=== PATIENT | female | born 1965 | race Caucasian/White ===

== ENCOUNTER 2016-07-23 05:01 | Emergency (ER) | payer BC ==
[2016-07-23] MEDS ORDERED: Aspirin Low Dose CHEW TAB* 81 MG PO ONE (05:12)
[2016-07-23 05:20] LABS: Hematocrit 39 % (35-47); Hemoglobin 13.1 g/dl (12.0-16.0); Mean Corpuscular HGB Conc 34 g/dl (31-36); Mean Corpuscular Hemoglobin 31 pg (27-31); Mean Corpuscular Volume 92 fL (80-97); Mean Platelet Volume 7 um3 (7.4-10.4); Red Blood Count 4.28 10^6/ul (4.0-5.4); Red Cell Distribution Width 13 % (10.5-15); White Blood Count 10.6 10^3/ul (3.5-10.8)
[2016-07-23 05:36] LABS: Albumin 3.7 g/dL (3.2-5.2); BUN/Creatinine Ratio 16.7 (8-20); Calcium 9.1 mg/dL (8.6-10.3); EGFR African American 109.4 (>60); EGFR Non-African American 85.1 (>60); Potassium 3.9 mmol/L (3.5-5.0); Total Bilirubin 0.3 mg/dL (0.2-1.0); Total Protein 6.7 g/dL (6.4-8.9)
[2016-07-23 05:53] VITALS: BP 150/54
--- NOTE | 2016-07-23 05:53 | ED ---
mann Lane Timothy, scribed for Tyrese Maier on 07/23/16 at 0511 . Upper Extremity Pain - HPI Summary HPI Summary: Kezia Ambrose is a 51 yo female presenting to [facility] with ?/10 shooting left arm pain radiating from her shoulder to her finger tips and back since 244. She claims some nausea due to pain. She denies CP or SOB. She self- medicated with ibuprofen with no relief. Her MHx includes asthma, lupus, hysterectomy, and tobacco use. - History of Current Complaint Stated Complaint: ARM PAIN Time Seen by Provider: 07/23/16 05:13 Hx Obtained From: Patient Mechanism Of Injury: Unknown Onset/Duration: Started Hours Ago, Still Present Timing: Constant Severity Initially: Moderate Severity Currently: Moderate Pain Location: Shoulder Character: Sharp - "shooting" Alleviating Factor(s): Nothing Associated Signs & Symptoms: Negative: Chest Pain, SOB - Allergies/Home Medications Allergies/Adverse Reactions: Allergies Allergy/AdvReac Type Severity Reaction Status Date / Time CI Pigment Blue 63 Allergy Severe See Comment Verified 11/07/14 09:19 [From Cymbalta] Duloxetine [From Cymbalta] Allergy Severe See Comment Verified 11/07/14 09:19 Penicillins Allergy Severe Anaphylatic Verified 11/07/14 09:19 Shock Prednisone Allergy Unknown Unknown Verified 11/07/14 09:[address] DYE Allergy Severe Anaphylatic Uncoded 11/07/14 09:19 Shock PMH/Surg Hx/FS Hx/Imm Hx Respiratory History: Reports: Hx Asthma - Family History Known Family History: Positive: Cardiac Disease - Social History Alcohol Use: Occasionally Substance Use Type: Reports: None Smoking Status (MU): Current Every Day Smoker - Additional Comments History Additional Comments: lupus Review of Systems Constitutional: Negative Eyes: Negative ENT: Negative Cardiovascular: Negative Respiratory: Negative Gastrointestinal: Negative Genitourinary: Negative Musculoskeletal: Other - left shoulder pain radiating from her shoulder to finger tips and back Skin: Negative Neurological: Negative Psychological: Normal All Other Systems Reviewed And Are Negative: Yes Physical Exam Triage Information Reviewed: Yes Vital Signs On Initial Exam: Initial Vital Signs Temp 97.1 F 07/23/16 05:14 Pulse 90 07/23/16 05:14 Resp 16 07/23/16 05:14 BP 141/88 07/23/16 05:14 Pulse Ox 95 02/22/17 05:14 Vital Signs Reviewed: Yes Appearance: Positive: Well-Appearing, No Pain Distress Skin: Positive: Warm, Skin Color Reflects Adequate Perfusion, Dry Head/Face: Positive: Normal Head/Face Inspection Eyes: Positive: EOMI, LORRAINE ENT: Positive: Normal ENT inspection, Hearing grossly normal. Negative: Muffled /hoarse voice Neck: Positive: Supple, Nontender Respiratory/Lung Sounds: Positive: Clear to Auscultation, Breath Sounds Present Cardiovascular: Positive: RRR, Pulses are Symmetrical in both Upper and Lower Extremities Abdomen Description: Positive: Nontender, Soft Bowel Sounds: Positive: Present Musculoskeletal: Positive: Strength/ROM Intact, Pain @ - tenderness over left shoulder. Negative: Normal Neurological: Positive: Normal, Sensory/Motor Intact, Alert, Oriented to Person Place, Time Psychiatric: Positive: Normal Diagnostics - Laboratory Result Diagrams: 07/23/16 05:10 07/23/16 05:10 Lab Statement: Any lab studies that have been ordered have been reviewed, and results considered in the medical decision making process. - Radiology CXR Xray Interpretation: No Acute Changes - no acute disease Radiology Interpretation Completed By: ED Physician Shoulder XR Xray Interpretation: No Acute Changes - no acute disease Radiology Interpretation Completed By: ED Physician - EKG 0459 Cardiac Rate: NL - 92 BPM EKG Rhythm: Sinus Rhythm EKG Interpretation: NSR @ 92 BPM. No acute changes. Re-Evaluation - Re-Evaluation First Eval Re-Evaluation Time: 05:48 Change: Unchanged Comment: Pt is informed of imaging study results. She still denies CP and SOB. Course/Dx - Course Assessment/Plan: Kezia Ambrose is a 51 yo female presenting to [facility] with left shoulder pain radiaitng down her finger tips and into her back. After review of her imaging studies and normal EKG, she will be discharged home with left shoulder pain and appropriate instructions. - Diagnoses Provider Diagnoses: Left shoulder pain Discharge - Discharge Plan Condition: Stable Disposition: HOME Patient Education Materials: Shoulder Sprain (ED), Shoulder Pain (ED) Referrals: Imelda Polo MD [Medical Doctor] - 3 Days Additional Instructions: please follow up with orthopedics regarding your visit to the emergency department today. Return to the emergency department with any new or recurring symptoms. The documentation as recorded by the scribemann Timothy accurately reflects the service I personally performed and the decisions made by me, Tyrese Maier.
--- NOTE | 2016-07-23 07:58 | RAD ---
HISTORY: Chest pains, left shoulder pain COMPARISONS: October 17, 2015 VIEWS: 3, Frontal internal rotation, external rotation, and outlet views of the left shoulder FINDINGS: BONE DENSITY: Normal. BONES: There is no displaced fracture. There is a stable bone island. JOINTS: There is no arthropathy. ALIGNMENT: There is no dislocation. SOFT TISSUES: Unremarkable. OTHER FINDINGS: None. IMPRESSION: NO ACUTE OSSEOUS INJURY. IF SYMPTOMS PERSIST, RECOMMEND REPEAT IMAGING.
--- NOTE | 2016-07-23 07:58 | RAD ---
INDICATION: LEFT side chest pain radiating into the shoulder. Tobacco use; asthma. COMPARISON: April 25, 2015 TECHNIQUE: Dual energy PA and routine lateral views of the chest were obtained. REPORT: Normal variant accessory azygos fissure in the medial RIGHT upper lung zone. Clear lungs and pleural spaces. Negative for pneumothorax. The heart, pulmonary vasculature, and mediastinal contours are unremarkable. Unremarkable osseous structures and soft tissue contours. IMPRESSION: No evidence for acute intrathoracic disease.
== END 2016-07-23 05:53 | disposition home or self-care (01) ==
LOC: ED 05:01
DX: M25.512 Pain in left shoulder (principal); F17.210 Nicotine dependence, cigarettes, uncomplicated; R11.0 Nausea; Z88.0 Allergy status to penicillin
CPT/HCPCS: 36415; 71020; 80053; 83880; 84484; 85025; 85610; 85730; 93005; 99282

== ENCOUNTER 2016-10-31 00:57 | Emergency (ER) | payer BC ==
--- NOTE | 2016-10-31 02:13 | ED ---
Lower Extremity - HPI Summary HPI Summary: Patient presents to ED s/p mechanical fall with right knee pain with small abrasion and ecchymosis over tibial tuberosity. She states she dislocated the knee after an injury 20 years ago and is concerned for another dislocation. She notes to a 10/10 pain with movement, and a 3/10 pain at rest. Denies other symptoms. Denies pain in ankle or hip. The pain began immediately, did not radiate and is achy and sharp. Patient is a smoker. She denies hitting head or LOC. - History of Current Complaint Chief Complaint: EDExtremityLower Stated Complaint: FALL/RIGHT KNEE PAIN Time Seen by Provider: 10/31/16 01:14 Hx Obtained From: Patient Mechanism Of Injury: Direct Blow Onset of Pain: Immediate Onset/Duration: Minutes Severity Initially: Moderate Severity Currently: Moderate Pain Intensity: 5 Pain Scale Used: 0-10 Numeric Timing: Constant Location: Is Discrete @ - right knee pain Character Of Pain: Aching, Throbbing Associated Signs And Symptoms: Positive: Redness, Bruising Aggravating Factor(s): Standing, Ambulation, Movement, Weight Bearing Alleviating Factor(s): Rest Able to Bear Weight: No - Risk Factors Gout Risk Factors: Age Over 40 DVT Risk Factors: Negative Septic Arthritis Risk Factor: Negative - Allergies/Home Medications Allergies/Adverse Reactions: Allergies Allergy/AdvReac Type Severity Reaction Status Date / Time CI Pigment Blue 63 Allergy Severe See Comment Verified 10/31/16 01:04 [From Cymbalta] Duloxetine [From Cymbalta] Allergy Severe See Comment Verified 10/31/16 01:04 Penicillins Allergy Severe Anaphylatic Verified 10/31/16 01:04 Shock Prednisone Allergy Unknown Unknown Verified 10/31/16 01:04 Reaction Details Hydroxychloroquine Allergy Blisters Verified 10/31/16 01:04 [From Plaquenil] CT DYE Allergy Severe Anaphylatic Uncoded 10/31/16 01:04 Shock PMH/Surg Hx/FS Hx/Imm Hx Previously Healthy: Yes Respiratory History: Reports: Hx Asthma - Immunization History Hx Pertussis Vaccination: No Immunizations Up to Date: Unable to Obtain/Confirm Infectious Disease History: No Infectious Disease History: Denies: Traveled Outside the [place] in Last 30 Days - Family History Known Family History: Positive: Cardiac Disease - Social History Occupation: Employed Full-time Lives: With Family Alcohol Use: Occasionally Hx Substance Use: No Substance Use Type: Reports: None Hx Tobacco Use: Yes Smoking Status (MU): Current Every Day Smoker Review of Systems Constitutional: Negative Eyes: Negative Cardiovascular: Negative Respiratory: Negative Positive: no symptoms reported, see HPI Positive: Arthralgia - right knee pain Skin: Negative Neurological: Negative All Other Systems Reviewed And Are Negative: Yes Physical Exam Triage Information Reviewed: Yes Vital Signs On Initial Exam: Initial Vitals Temp Pulse Resp BP Pulse Ox 97.4 F 103 18 147/70 98 10/31/16 01:02 10/31/16 01:02 10/31/16 01:02 10/31/16 01:02 10/31/16 01:02 Vital Signs Reviewed: Yes Appearance: Positive: Well-Appearing, Well-Nourished Skin: Positive: Warm, Skin Color Reflects Adequate Perfusion Head/Face: Positive: Normal Head/Face Inspection Eyes: Positive: Normal, LORRAINE, Conjunctiva Clear Neck: Positive: Nontender Respiratory/Lung Sounds: Positive: Clear to Auscultation, Breath Sounds Present Cardiovascular: Positive: Normal, RRR Abdomen Description: Positive: Soft Musculoskeletal: Positive: Pain @ - tibial tuberosity, unable to perform lachmans and anterior drawer d/t pain Neurological: Positive: Alert, Oriented to Person Place, Time, Speech Normal Psychiatric: Positive: Normal AVPU Assessment: Alert Diagnostics - Vital Signs Vital Signs Temp Pulse Resp BP Pulse Ox 10/31/16 01:02 97.4 F 103 18 147/70 98 - Laboratory Lab Statement: Any lab studies that have been ordered have been reviewed, and results considered in the medical decision making process. Lower Extremity Course/Dx - Course Course Of Treatment: Patient presents s/p fall with abrasion and ecchymosis to the tibial tuberosity of the right knee. Xrays read by Dr. Maier as negative. Domingo wrapped knee and crutches given. Follow up with Dr. King if symptoms persist. - Diagnoses Differential Diagnosis/HQI/PQRI: Positive: Contusion, Fracture (Closed), Fracture (Open), Sprain, Strain Provider Diagnoses: Contusion of right knee Discharge - Discharge Plan Condition: Stable Disposition: HOME Patient Education Materials: Knee Pain (ED) Referrals: Ross King MD [Medical Doctor] - Jono COLLINS,Gucci Florez [Primary Care Provider] - Additional Instructions: Follow up with Dr. King If symptoms become worse, come back to ED. Crutches for ambulation given. Ibuprofen 600mg three times daily with meals for pain. Follow up with orthopedic physician in 5-7 days. If numbness, tingling, decreased sensation, increased pain, temperature changes or pallor noted in toes, come back to ER immediately. Protect the area. For your comfort level, do not bear weight, pull or push until you can injury is somewhat healed. This may involve the need for immobilization or crutches for a period of time. Rest the involved area, but not too long. You may need to be off your injury for some time to allow for healing, however excessive immobilization of joints can lead to stiffness and delay healing time. Early mobilization is encouraged if it is pain-free. Ice. Not directly on the skin. Cover with a towel. Apply ice no more than 30 minutes at a time Compression: You may use and keep an domingo wrap bandage over the injury to decrease swelling. Again, this should be limited and be taken off periodically to encourage early range of motion and mobilization. Elevate: Try to elevate the injured area above the heart whenever possible.
[2016-10-31 02:33] VITALS: BP 125/81
--- NOTE | 2016-10-31 07:56 | RAD ---
INDICATION: Right knee injury. TECHNIQUE: 4 views of the right knee were obtained. FINDINGS: The bones are in normal alignment. No joint effusion or fracture is seen. Joint spaces appear maintained. IMPRESSION: NO EVIDENCE FOR FRACTURE.
== END 2016-10-31 02:32 | disposition home or self-care (01) ==
LOC: ED 00:57
DX: S80.01XA Contusion of right knee, initial encounter (principal); M25.561 Pain in right knee; F17.210 Nicotine dependence, cigarettes, uncomplicated; W19.XXXA Unspecified fall, initial encounter; Y93.9 Activity, unspecified; Y92.9 Unspecified place or not applicable
CPT/HCPCS: 99282

== ENCOUNTER 2017-07-15 00:32 | Emergency (ER) | payer BC ==
--- NOTE | 2017-07-15 02:06 | ED ---
Yany Lane Thomas, scribed for Dipika Tate MD on 07/15/17 at 0202 . HPI Chest Pain - HPI Summary HPI Summary: The patient is a 52 year old female presenting with chest pressure that has been constant for the last month. Past medical history includes mitral valve disease, for which she sees Dr. Evans. She additionally complains of left arm achiness. She denies SOB. She was given ASA by EMS. - History of Current Complaint Chief Complaint: EDChestPainROMI Time Seen by Provider: 07/15/17 01:01 Hx Obtained From: Patient Onset/Duration: Started Weeks Ago - onset one month ago, Still Present Current Severity: Moderate Pain Intensity: 5 Pain Scale Used: 0-10 Numeric Character: Pressure/Squeezing Aggravating Factor(s): Nothing Alleviating Factor(s): Nothing Associated Signs and Symptoms: Positive: Chest Pain - Allergy/Home Medications Allergies/Adverse Reactions: Allergies Allergy/AdvReac Type Severity Reaction Status Date / Time MS CI Pigment Blue 63 Allergy Severe See Comment Verified 07/15/17 00:43 [From Cymbalta] MS Duloxetine [From Cymbalta] Allergy Severe See Comment Verified 07/15/17 00:43 MS Penicillins [Penicillins] Allergy Severe Anaphylatic Verified 07/15/17 00:43 Shock MS Prednisone [Prednisone] Allergy Unknown Unknown Verified 07/15/17 00:43 Reaction Details MS Hydroxychloroquine Allergy Blisters Verified 07/15/17 00:43 [From Plaquenil] CT DYE Allergy Severe Anaphylatic Uncoded 07/15/17 00:43 Shock PMH/Surg Hx/FS Hx/Imm Hx Respiratory History: Reports: Hx Asthma Musculoskeletal History: Denies: Hx Osteoporosis Infectious Disease History: No Infectious Disease History: Denies: Traveled Outside the [place] in Last 30 Days - Family History Known Family History: Positive: Cardiac Disease - Social History Alcohol Use: Occasionally Hx Substance Use: No Substance Use Type: Reports: None Hx Tobacco Use: Yes Smoking Status (MU): Current Every Day Smoker Review of Systems Negative: Fever Positive: Chest Pain All Other Systems Reviewed And Are Negative: Yes Physical Exam - Summary Physical Exam Summary: VITAL SIGNS: Reviewed. GENERAL: Patient is a well-developed and nourished FEMALE who is lying comfortable in the stretcher. Patient is not in any acute respiratory distress. HEAD AND FACE: No signs of trauma. No ecchymosis, hematomas or skull depressions. No sinus tenderness. EYES: PERRLA, EOMI x 2, No injected conjunctiva, no nystagmus. EARS: Hearing grossly intact. Ear canals and tympanic membranes are within normal limits. MOUTH: Oropharynx within normal limits. NECK: Supple, trachea is midline, no adenopathy, no JVD, no carotid bruit, no c- spine tenderness, neck with full ROM. CHEST: Symmetric, no tenderness at palpation LUNGS: Clear to auscultation bilaterally. No wheezing or crackles. CVS: Regular rate and rhythm, S1 and S2 present, no murmurs or gallops appreciated. ABDOMEN: Soft, non-tender. No signs of distention. No rebound no guarding, and no masses palpated. Bowel sounds are normal. EXTREMITIES: FROM in all major joints, no edema, no cyanosis or clubbing. NEURO: Alert and oriented x 3. No acute neurological deficits. Speech is normal and follows commands. SKIN: Dry and warm Triage Information Reviewed: Yes Vital Signs On Initial Exam: Initial Vitals Temp Pulse Resp BP Pulse Ox 98.3 F 82 16 156/63 98 07/15/17 00:41 07/15/17 00:41 07/15/17 00:41 07/15/17 00:41 07/15/17 00:41 Vital Signs Reviewed: Yes Diagnostics - Vital Signs Vital Signs Temp Pulse Resp BP Pulse Ox 07/15/17 01:00 74 11 141/78 96 07/15/17 00:43 79 97 07/15/17 00:41 98.3 F 82 16 156/63 98 - Laboratory Lab Statement: Any lab studies that have been ordered have been reviewed, and results considered in the medical decision making process. - EKG 00:33 Cardiac Rate: NL EKG Rhythm: Sinus Rhythm - at 78 BPM EKG Interpretation: Normal axis, normal intervals, no ischemic change. Chest Pain Course/Dx - Course Assessment/Plan: The patient is a 52 year old female presenting with chest pressure that has been constant for the last month. Past medical history includes mitral valve disease, for which she sees Dr. Evans. EKG shows normal sinus rhythm with normal intervals, normal axis, and no acute ischemic change. The patient left the room and eloped before we were able to get bloodwork. - Diagnoses Provider Diagnoses: Chest pain Discharge - Discharge Plan Condition: Fair Disposition: OTHER Discharge Disposition Comment: Patient eloped Referrals: Jono COLLINS,Gucci Florez [Primary Care Provider] - The documentation as recorded by the Yany lima Thomas accurately reflects the service I personally performed and the decisions made by me, Dipika Tate MD.
[2017-07-15 02:36] VITALS: BP 146/72
== END 2017-07-15 01:30 ==
LOC: ED 00:32
DX: R07.9 Chest pain, unspecified (principal); F17.200 Nicotine dependence, unspecified, uncomplicated; J45.909 Unspecified asthma, uncomplicated
CPT/HCPCS: 93005; 99282

== ENCOUNTER 2017-07-20 23:01 | Observation (INO) | payer BC ==
[2017-07-20] MEDS ORDERED: Metoprolol Tartrate IV* 1 MG/ML 5 ML VIAL ONE (23:14)
[2017-07-20] MEDS ORDERED: Metoprolol Tartrate IV* 1 MG/ML 5 ML VIAL IV ONE ×2 (23:19→23:43)
[2017-07-20] MEDS ORDERED: NS 0.9% 1000 ML*IV.FLUID IV ONE (23:19)
[2017-07-20 23:32] LABS: ABS Basophils 0.1 10^3/ul (0-0.2); ABS Eosinophils 0.1 10^3/ul (0-0.6); ABS Lymphocytes 2.3 10^3/ul (1.0-4.8); ABS Monocytes 0.7 10^3/ul (0-0.8); ABS Neutrophils 6.3 10^3/ul (1.5-7.7); ABS Nucleated RBC 0 10^3/ul; Eosinophil % 1.3 % (0-6); Hematocrit 38 % (35-47); Hemoglobin 12.7 g/dl (12.0-16.0); Lymphocyte % 24.5 % (25-47); Mean Corpuscular HGB Conc 33 g/dl (31-36); Mean Corpuscular Hemoglobin 31 pg (27-31); Mean Corpuscular Volume 93 fL (80-97); Mean Platelet Volume 7 um3 (7.4-10.4); Nucleated Red Blood Cells % 0.1; Platelet Count 338 10^3/ul (150-450); Red Cell Distribution Width 14 % (10.5-15); White Blood Count 9.6 10^3/ul (3.5-10.8)
--- NOTE | 2017-07-20 23:38 | ED ---
HPI Chest Pain - HPI Summary HPI Summary: 52yo F with hx of HTN, smoking and "irregular heartbeat" presents by EMS with chest pain since 8:30pm tonight. Pain was intermittent until it became constant and severe at around 9:30pm. Pain is a squeezing pressure across whole chest. Associated with some nausea and mild SOB. EMS provided full aspirin and nitro with some improvement. She reports seeing cardiology Dr Evans every 6mo for heart related issues. State she will not have a stress test. Had an echo, unsure of results. +MVP, possible afib in past. Not on blood thinner. Pain is much better now after lopressor and fluids on arrival. - History of Current Complaint Chief Complaint: EDChestPainROMI Time Seen by Provider: 07/20/17 23:31 Hx Obtained From: Patient, EMS Pain Intensity: 7 - Allergy/Home Medications Allergies/Adverse Reactions: Allergies Allergy/AdvReac Type Severity Reaction Status Date / Time MS CI Pigment Blue 63 Allergy Severe See Comment Verified 07/15/17 00:43 [From Cymbalta] MS Duloxetine [From Cymbalta] Allergy Severe See Comment Verified 07/20/17 23:06 MS Penicillins [Penicillins] Allergy Severe Anaphylatic Verified 07/20/17 23:06 Shock MS Prednisone [Prednisone] Allergy Unknown Unknown Verified 07/15/17 00:43 Reaction Details MS Hydroxychloroquine Allergy Blisters Verified 07/15/17 00:43 [From Plaquenil] CT DYE Allergy Severe Anaphylatic Uncoded 07/20/17 23:06 Shock PMH/Surg Hx/FS Hx/Imm Hx Previously Healthy: No Endocrine/Hematology History: Reports: Autoimmune Disease Denies: Hx Anticoagulant Therapy Cardiovascular History: Reports: Hx Atrial Fibrillation, Hx Hypercholesterolemia , Hx Hypertension Denies: Hx Deep Vein Thrombosis, Hx Myocardial Infarction Respiratory History: Reports: Hx Asthma Musculoskeletal History: Denies: Hx Osteoporosis Infectious Disease History: No Infectious Disease History: Denies: Traveled Outside the [place] in Last 30 Days - Family History Known Family History: Positive: Cardiac Disease, Other - mother with MS age 62 - Social History Alcohol Use: Occasionally Hx Substance Use: No Substance Use Type: Reports: None Hx Tobacco Use: Yes Smoking Status (MU): Current Every Day Smoker Review of Systems Negative: Fever ENT: Negative Positive: Chest Pain. Negative: Palpitations Positive: Shortness Of Breath. Negative: Cough Positive: Nausea. Negative: Abdominal Pain, Vomiting Musculoskeletal: Negative Skin: Negative Neurological: Negative All Other Systems Reviewed And Are Negative: Yes Physical Exam Triage Information Reviewed: Yes Vital Signs On Initial Exam: Initial Vitals Temp Pulse Resp BP Pulse Ox 36.6 C 98 13 150/87 100 07/20/17 23:05 07/20/17 23:05 07/20/17 23:05 07/20/17 23:05 07/20/17 23:05 Vital Signs Reviewed: Yes Appearance: Positive: Well-Appearing, No Pain Distress Skin: Positive: Warm, Skin Color Reflects Adequate Perfusion, Dry Eyes: Positive: Normal, EOMI ENT: Positive: Normal ENT inspection Neck: Positive: Supple, Nontender Respiratory/Lung Sounds: Positive: Clear to Auscultation, Breath Sounds Present Cardiovascular: Positive: Normal, RRR. Negative: Murmur, Leg Edema Left Abdomen Description: Positive: Nontender, No Organomegaly, Soft Bowel Sounds: Positive: Present Musculoskeletal: Positive: Normal Neurological: Positive: Normal, Sensory/Motor Intact, Alert, Oriented to Person Place, Time Psychiatric: Positive: Normal AVPU Assessment: Alert Diagnostics - Vital Signs Vital Signs Temp Pulse Resp BP Pulse Ox 07/20/17 23:05 36.6 C 98 13 150/87 100 - Laboratory Pertinent Lab Values Are: WNL Except: - ddimer slightly elevated (known to pt) Result Diagrams: 07/20/17 23:12 07/20/17 23:12 Lab Statement: Any lab studies that have been ordered have been reviewed, and results considered in the medical decision making process. - Radiology No standard instances Xray Interpretation: No Acute Changes Radiology Interpretation Completed By: ED Physician - EKG No standard instances Cardiac Rate: Tachycardia - 101 ST Segment: Normal Ectopy: None EKG Interpretation: sinus tach. Nl axis/intervals Re-Evaluation - Re-Evaluation First Eval Change: Improved - after lopressor Chest Pain Course/Dx - Course Course Of Treatment: Pt with improvement with lopressor. HR now ~90. No SOB. Pressure gone. Mod-high risk with HEART Score 5, MANDO of 3. Pt decided she will stay, but wants nicotrol. Cards c/s. Admit for further. She has known baseline elevated of Ddimer due to autoimmune dz. No significant SOB and no leg swelling. - Chest Pain Differential Diagnosis/HQI/PQRI: Acute MS, ACS, Angina, Lower Respiratory Infection, Pulmonary Embolism - Diagnoses Provider Diagnoses: Chest pain, Acute coronary syndrome, Sinus tachycardia by electrocardiogram - Provider Notifications Discussed Care Of Patient With: Leeann graham in ED and admit Time Discussed With Above Provider: 23:55 Instructed by Provider To: Admit As Inpatient Discharge - Discharge Plan Condition: Guarded Disposition: ADMITTED TO [facility] Referrals: Jono COLLINS,Gucci Florez [Primary Care Provider] -
[2017-07-20 23:41] LABS: INR 0.89 (0.77-1.02)
[2017-07-20 23:44] LABS: EGFR Non-African American 76.1 (>60)
[2017-07-21] MEDS ORDERED: Nicotine Inhaler* 10 MG AMP INH ONE (00:07)
[2017-07-21] MEDS ORDERED: Mouth Piece, Nicotine* 1 EACH CARTRIDGE INH PRN ×2 (00:07→00:56)
[2017-07-21] MEDS ORDERED: Morphine INJ* 4 MG/ML 1 ML CARPUJECT IV PRN (00:40)
[2017-07-21] MEDS ORDERED: Acetaminophen TAB* 325 MG PO PRN (00:40)
[2017-07-21] MEDS ORDERED: Nitroglycerin TAB 0.4 MG* 0.4 MG TAB SL PRN (00:40)
[2017-07-21] MEDS ORDERED: NS 0.9% 1000 ML* 1,000 ML IV SCH (00:45)
[2017-07-21] MEDS ORDERED: Nicotine Inhaler* 10 MG AMP INH PRN (00:56)
--- NOTE | 2017-07-21 02:47 | HP ---
CC: Dr. De La Cruz; Dr. Evans * HISTORY AND PHYSICAL: DATE OF ADMISSION: 07/21/17 PRIMARY CARE PROVIDER: Dr. De La Cruz. CALENDER WIND UP HELPER: Dr. Evans. CHIEF COMPLAINT: Chest pain. HISTORY OF PRESENT ILLNESS: Ms. Jayde Ambrose is a 52-year-old female, who has a history of a connective tissue disorder followed by Dr. Doshi, sinus tachycardia, for which she is followed by Dr. Evans, ongoing tobacco abuse, asthma, and hypertension, who presents to the emergency room with complaints of chest pain. The patient has had months of chest pain; however, this past Thursday , 07/15/17, the patient had significantly worsened chest pain and presented to the emergency room. She reportedly was unhappy with her care in the ER. The patient ultimately returned to the emergency room on 07/20/17 for complaints of severe chest pain. The patient states that she got up at approximately 8:30 p.m. to get her up for work. She states she walked across the house and developed severe chest pain. It lasted for approximately 5 minutes and then went away. She then got up to go the bathroom a little bit later and again developed chest pain when getting up to the bathroom. Again, the chest pain went away and then the pain occurred again, this time it persisted. The patient contacted 911 and came to the emergency room. She states the pain did improve after receiving nitroglycerin and metoprolol in the emergency room. The patient just prior to my evaluation, has gotten up to go to the bathroom and again developed very severe chest pain. The patient essentially incapacitated and could barely talk to me. The pain went away within a couple of minutes. The patient states that while the severe pain has gone away, she feels the constant ache. This entire evening, the pain has not been completely resolved. There has been a constant ache at baseline. She has no associated shortness of breath, nausea, or diaphoresis. She has not had associated dizziness. PAST MEDICAL HISTORY: 1. Connective tissue disorder. 2. Sinus tachycardia. 3. Tobacco abuse. 4. Asthma. 5. Hypertension. PAST SURGICAL HISTORY: 1. D and C. 2. Hysterectomy. MEDICATIONS: 1. Sulfasalazine 500 mg p.o. b.i.d. 2. Diltiazem LA 300 mg p.o. daily. 3. Multivitamin 1 tab p.o. daily. 4. Aspirin 81 mg p.o. daily. ALLERGIES: DULOXETINE, PENICILLIN, HYDROXYCHLOROQUINE, PREDNISONE, and CT DYE. FAMILY HISTORY: Mother is living, she is 72. She has history of coronary artery disease. Dad at age 73, had history of carotid artery disease and AAA. SOCIAL HISTORY: The patient smokes one-half to 1 pack of cigarettes per day. She drinks alcohol rarely. 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 She is . She has 4 children. She indicates that her , Deni, is her health care proxy. REVIEW OF SYSTEMS: A complete 11 system review of systems is obtained. Pertinent positives and negatives are as per HPI and in addition the patient does state that her appetite has been off on occasion lately. She does feel palpitations frequently. She is also constipated, but has no hematochezia. The rest of the review of systems is negative. PHYSICAL EXAMINATION GENERAL: The patient is a well-developed, middle-aged female, sitting up in stretcher, in no acute distress. VITAL SIGNS: Blood pressure 150/87, pulse 98, respirations 13, temp 97.8, O2 sat 100% on room air. HEENT: Pupils are equal and round. Extraocular muscles are intact. Oropharynx is clear. Oral mucosa is moist. There is no submandibular, cervical , or supraclavicular adenopathy. Thyroid is not enlarged. No thyroid nodules are noted. PULMONARY: Lungs are clear to auscultation bilaterally. CARDIAC: Normal S1, S2. Regular rate and rhythm. I do not appreciate any murmurs. ABDOMEN: Bowel sounds present. Abdomen is soft, nontender, nondistended. MUSCULOSKELETAL: There is no cyanosis or clubbing of the digits. There is full active range of motion of all 4 extremities. NEURO: Cranial nerves II through XII are grossly intact. Sensation is intact to light touch throughout. Strength is 5/5 and symmetric in both upper and lower extremities bilaterally. PSYCH: The patient is alert. She is oriented x3. Affect appears appropriate. SKIN: Warm and dry. There are no rashes. DIAGNOSTIC STUDIES/LAB DATA: WBC 9.6, hemoglobin 12.7, hematocrit 38, platelets 338. INR 0.89, D-dimer is 309. Sodium 136, potassium 4.0, chloride 102, CO2 27, BUN 16, creatinine 0.79, glucose 124, lactic acid 2.4, calcium 10.0. Bilirubin 0.2, AST 15, ALT 19, alk phos 89. Troponin 0. Albumin 4.1. EKG revealed sinus tachycardia without any acute ST-T wave abnormalities. Additionally, this EKG is unchanged from EKG obtained on 07/15/17. Chest x-ray to my evaluation appears to be clear. ASSESSMENT AND PLAN: Ms. Jayde Ambrose is a 52-year-old female with the history of ongoing tobacco abuse, hypertension, and a connective tissue disorder , who presents to the emergency room with complaints of chest pain. 1. Chest pain. The patient has had chest pain dating back to at least October of 2016. It has been recommended that she undergo stress test; however, the patient is fearful of doing this due to possible complication from a stress test. At this point, she states that she will not undergo stress test. Plan will be to admit the patient and rule out myocardial infarction and obtain Cardiology consultation in the morning to determine how to proceed. Cardiac catheterization could be considered; however, without a positive troponin, this may not be the best option for her. I will go ahead and check a lipid profile with troponin drawn at 5 o'clock in the morning. The patient will continue on her baby aspirin daily. 2. Sinus tachycardia. The patient will continue on her diltiazem 300 mg daily. 3. Tobacco abuse. I will order nicotine patch and nicotine inhaler for the patient. Smoking cessation will be encouraged. 4. Hypertension. The patient's blood pressure is mildly elevated. We will monitor for now. However, if she remains elevated in the morning, we will need to consider adjusting her antihypertensive regimen. 5. DVT prophylaxis. According to the Adult Thrombosis Prophylaxis Risk Factor Assessment Guide, the patient has a total risk factor score of 1, making her low risk. Heparin 5000 units subcutaneous q.12 hours will be utilized as DVT prophylaxis. 6. Code status is full and again the patient indicates that her is her healthcare proxy. TIME SPENT: Sixty-five minutes was spent admitting this patient. [id number]/[facility] #: [id number] AVINASH
--- NOTE | 2017-07-21 07:53 | RAD ---
Indication: Chest pain. Single frontal view of the chest performed at 2321 hours was reviewed. Comparison is made with previous exam dated July 23, 2016. No mediastinal shift is noted. Heart is of normal size and configuration. Lung paulino appear clear. IMPRESSION: NO ACTIVE CARDIOPULMONARY DISEASE IS NOTED.
[2017-07-21] MEDS ORDERED: Nicotine PATCH 21 MG/24 HR* PATCH TRANSDERM SCH (08:00)
[2017-07-21] MEDS ORDERED: Multivitamins/Minerals TAB PO SCH (09:00)
[2017-07-21] MEDS ORDERED: Aspirin EC Low Dose* 81 MG TAB.EC PO SCH (09:00)
[2017-07-21] MEDS ORDERED: Diltiazem CD CAP* 120 MG PO SCH (09:00)
[2017-07-21] MEDS ORDERED: Heparin VIAL(*) 5000 UNITS/ML VIAL (FIVE THOUSAND) SUBCUT SCH (09:00)
[2017-07-21] MEDS ORDERED: Diltiazem CD CAP* 180 MG PO SCH (09:00)
[2017-07-21] MEDS ORDERED: sulfaSALAzine TAB* 500 MG PO SCH (09:00)
--- NOTE | 2017-07-21 10:50 | PN ---
Subjective Date of Service: 07/21/17 Interval History: Patient seen and examined at bedside. Denies fever, chills, shortness of breath , N/V/D. Pt states that over the past few weeks the chest discomfort that she has been intermittently having has been increasing. at home she reports having chest discomfort with exertion that resolves with rest. During this chest discomfort, she has pain that radiated up her anterior neck. She denies nausea or diaphoresis during these episodes. Here, this AM she reports having chest discomfort after returning from the bathroom and sitting down on the bed. She describes this discomfort as "feeling like a tomato being squeezed". Per NSG staff when Pt was having episode of chest discomfort this AM, she declined pain medication or Nitro. She is declining a chemical stress test, as she feels that placing the heart under a lot of stress could kill her. She states that she is unable to do an exercise stress test. Tele: Sinus rhythm, rate 60-90's. Few PVCs noted. Family History: Unchanged from Admission Social History: Unchanged from Admission Past Medical History: Unchanged from Admission Objective Active Medications: Acetaminophen (Tylenol Tab*) 650 mg PO Q4H PRN Reason: PAIN Aspirin (Aspirin Ec Low Dose*) 81 mg PO DAILY [facility] Device (Nicotine Mouth Piece*) 1 each INH .USE WITH NICOTROL PRN Reason: CRAVING Diltiazem HCl (Cardizem Cd Cap*) 180 mg PO DAILY [facility] Diltiazem HCl (Cardizem Cd Cap*) 120 mg PO DAILY [facility] Heparin Sodium (Porcine) (Heparin Vial(*)) 5,000 units SUBCUT Q12HR [facility] Sodium Chloride (Ns 0.9% 1000 Ml*) 1,000 mls @ 100 mls/hr IV PER RATE [facility] Morphine Sulfate (Morphine Inj (Syringe)*) 4 mg IV Q4H PRN Reason: PAIN Multivitamins/Minerals (Theragran/Minerals Tab*) 1 tab PO DAILY [facility] Nicotine (Nicotine Inhaler*) 10 mg INH Q2H PRN Reason: CRAVING Nicotine (Nicotine Patch 21 Mg/24 Hr*) 1 patch TRANSDERM DAILY@0800 [facility] Nitroglycerin (Nitroglycerin Tab 0.4 Mg*) 0.4 mg SL Q5M PRN Reason: ANGINA Pharmacy Profile Note (Nicotine Patch Removal Note*) 1 note FOLLOW UP 2100 [facility] Sulfasalazine (Azulfidine Tab*) 500 mg PO BID MAXIMUS Vital Signs - 8 hr 07/21/17 07:18 Temperature 97.3 F Pulse Rate 92 Respiratory 16 Rate Blood Pressure 140/75 (mmHg) O2 Sat by Pulse 97 Oximetry Oxygen Devices in Use Now: None Appearance: NAD, laying in bed Ears/Nose/Mouth/Throat: Mucous Membranes Moist Respiratory: Symmetrical Chest Expansion and Respiratory Effort, Clear to Auscultation Cardiovascular: NL Sounds; No Murmurs; No JVD, RRR Abdominal: NL Sounds; No Tenderness; No Distention Extremities: No Edema Skin: No Rash or Ulcers Neurological: Alert and Oriented x 3, NL Muscle Strength and Tone Lines/Tubes/Other Access: Clean, Dry and Intact Peripheral IV - site benign Nutrition: Taking PO's Result Diagrams: 07/20/17 23:12 07/20/17 23:12 Assess/Plan/Problems-Billing Assessment: Ms. Jayde Ambrose is a 52 yo female with PMH significant for tobacco abuse, asthma, and HTN who presented to the emergency room with complaints of chest pain. - Patient Problems (1) Chest pain Code(s): R07.9 - CHEST PAIN, UNSPECIFIED SNOMED Code(s): 81586671 Comment: - Continues to have intermittent chest discomfort - Troponins 0.00 x3 - Continue ASA (2) Sinus tachycardia Code(s): R00.0 - TACHYCARDIA, UNSPECIFIED SNOMED Code(s): 85536295 Comment: - Continue diltiazem (3) Tobacco abuse Code(s): Z72.0 - TOBACCO USE SNOMED Code(s): 757742347 Comment: - Encouraged to stop smoking - Continue nicotine replacement (4) HTN (hypertension) Code(s): I10 - ESSENTIAL (PRIMARY) HYPERTENSION SNOMED Code(s): 41310562 Comment: - SBP 140-160's - Continue diltiazem - If continues to remain elevated, will start amlodipine (5) DVT prophylaxis Code(s): FHN6539 - SNOMED Code(s): 855895808 Comment: - SQ heparin (6) Full code status Code(s): Z78.9 - OTHER SPECIFIED HEALTH STATUS SNOMED Code(s): 337093118 Status and Disposition: OBV. Discharge to home when medically stable, possibly later today.
--- NOTE | 2017-07-21 12:53 | ECHO ---
Patient: RANDY MERA [facility] Rec#: [id number] : 1965 Date: 07/21/2017 Age: 52y Height: 172.72 cm / 68.0 in Weight: 76.66 kg / 169.0 lbs Sex: F BSA: 1.9 Room#: 438 Admit Date#: 07/21/2017 Type: Inpatient Referring: Rafal Gaytan MD Reading: Rafal Gaytan MD Research Professor Of Biostatistics: Mary Beth Cadena,RD,RDMS CC: Gucci De La Cruz MD Transthoracic Echocardiogram Indication: CP BP: 140/75 HR: 91 Rhythm: NSR Findings History: Connective tissue disorder, tachycardia, smoker, HTN, CP Technical Comments: The study quality is good. Left Ventricle: The left ventricular chamber size is normal. Mild to moderate concentric left ventricular hypertrophy is observed. There is normal left ventricular systolic function. The estimated ejection fraction is 55-60%. There is an E to A reversal in the mitral valve flow pattern suggestive of diastolic dysfunction. The basal inferior, and mid inferior wall segments are hypokinetic (score 2). Overall wallmotion score index is 2.00 Left Atrium: The left atrial chamber size is normal. Right Ventricle: The right ventricular chamber size and systolic function are within normal limits. The right ventricle wall thickness is mildly increased. Right Atrium: The right atrium appears normal. Aortic Valve: There is no evidence of aortic valve thickening. There is a trace of aortic regurgitation. There is no evidence of aortic stenosis. Mitral Valve: The mitral valve leaflets are mildly thickened. There is a trace of mitral regurgitation. There is no evidence of mitral stenosis. Tricuspid Valve: The tricuspid valve leaflets are normal. There is trace tricuspid regurgitation. Unable to estimate the right ventricular systolic pressure. Pulmonic Valve: The pulmonic valve appears normal. There is trace to mild pulmonic regurgitation. Pericardium: There is no significant pericardial effusion. Aorta: The aortic root appears normal. There is no dilatation of the aortic arch. Pulmonary Artery: The main pulmonary artery appears normal. Venous: The inferior vena cava appears normal in size. There is an approximate 50% respiratory change in the inferior vena cava dimension. Conclusions Mild to moderate concentric left ventricular hypertrophy is observed. There is normal left ventricular systolic function. The estimated ejection fraction is 55-60%. The basal inferior, and mid inferior wall segments are hypokinetic (score 2). The right ventricular chamber size and systolic function are within normal limits. There is a trace of aortic regurgitation. There is a trace of mitral regurgitation. There is trace tricuspid regurgitation. There is no significant pericardial effusion. Compared to study of 12/06/13, the mild wall motion abnormalities are new, Valve function is the same Measurements Name Value Normal Range RVIDd (AP) 2D 2.8 cm (0.9 - 2.6) RVDdMajor (2D) 2.5 cm (2.2 - 4.4) RAd ISD 4CH 4.6 cm (3.4 - 4.9) RA (A4C)W 3.7 cm (2.9 - 4.6) IVSd (2D) 1.3 cm (0.6 - 1) LVPWd (2D) 1.3 cm (0.6 - 1) LVIDd (2D) 4.1 cm (3.6 - 5.4) LVIDs (2D) 3.1 cm - LV FS (2D) 24 % (25 - 45) Aortic Annulus 2 cm (1.4 - 2.6) Ao root diameter (2D) 2.5 cm (2.1 - 3.5) Ascending Ao 2.5 cm (2.1 - 3.4) Aortic arch 2.7 cm (1.8 - 3.4) LA dimension (AP) 2D 3.5 cm (2.3 - 3.8) LAd ISD 4CH 5.5 cm (2.9 - 5.3) LA ISD 4CH W 4.3 cm (2.5 - 4.5) Name Value Normal Range LA ESV SP 4CH (A/L) 54.24 ml - LA ESV SP 2CH (A/L) 56.2 ml - LA ESV BP (A/L) 56.22 ml - LA ESV BP (A/L) index 30 ml/m2 - LA ESV SP 4CH (MOD) 49.79 ml - LA ESV SP 2CH (MOD) 52.57 ml - LV EDV SP 4CH (MOD) 56.41 ml - LV ESV SP 4CH (MOD) 28.29 ml - EF SP 4CH (MOD) 49.85 % - LV EDV SP 2CH (MOD) 44.11 ml - LV ESV SP 2CH (MOD) 16.14 ml - EF SP 2CH (MOD) 63.4 % - LV EDV BP 50.57 ml - LV ESV BP 21.27 ml - BP EF (MOD) 58 % - Name Value Normal Range MV E-wave Vmax 1 m/sec - MV deceleration time 89 msec - MV A-wave Vmax 1.4 m/sec - MV E:A ratio 0.7 ratio - LV lateral e' Vmax 0.08 m/sec - LV E:e' lateral ratio 12.5 ratio - Name Value Normal Range AV Vmax 1.8 m/sec - AV VTI 38 cm - AV peak gradient 13 mmHg - AV mean gradient 6.6 mmHg - LVOT Vmax 1 m/sec - LVOT VTI 22 cm - LVOT peak gradient 4 mmHg - LVOT mean gradient 2 mmHg - LAINE Vmax 1 m/sec - Name Value Normal Range MV Vmax 1.4 m/sec - MV VTI 31 cm - MV peak gradient 8 mmHg - MV mean gradient 3.7 mmHg - MV PHT 43 msec - MVA (PHT) 5.1 cm2 - Name Value Normal Range RAP 8 mmHg - IVC diameter 1.5 cm - Name Value Normal Range PV Vmax 0.9 m/sec - PV peak gradient 3.2 mmHg - Wallmotion BAS Not Seen BA Not Seen BAL Not Seen KALYAN Not Seen BI Hypokinetic BIS Not Seen MAS Not Seen MA Not Seen MAL Not Seen MIL Not Seen MN Hypokinetic MIS Not Seen Not Seen AA Not Seen AL Not Seen AI Not Seen APEX Not Seen
[2017-07-21] MEDS ORDERED: Regadenoson* 0.4 MG/5 ML SYRINGE ONE (14:16)
[2017-07-21] MEDS ORDERED: Aminophylline IV* 25 MG/ML 10 ML VIAL ONE (14:37)
--- NOTE | 2017-07-21 16:45 | RAD ---
Indication: Elevated d-dimer. Duplex Doppler sonography of the deep venous system of both lower extremities was performed. Bilaterally the common femoral veins, proximal greater saphenous veins, proximal deep femoral veins, femoral veins, popliteal veins, posterior tibial veins and peroneal veins appear patent and compressible. IMPRESSION: NO EVIDENCE OF DEEP VENOUS THROMBOSIS OF EITHER LOWER EXTREMITY IS PRESENT.
[2017-07-21 17:31] VITALS: BP 142/65
[2017-07-21] MEDS ORDERED: Nicotine Patch Removal NOTE FOLLOW UP SCH (21:00)
--- NOTE | 2017-07-21 21:34 | CONS ---
CC: Dr. Evans; Dr. De La Cruz * CARDIOLOGY CONSULTATION NOTE: DATE OF CONSULT: 07/21/17 INDICATION FOR CONSULTATION: Chest pain. HISTORY OF PRESENT ILLNESS: The patient is a 52-year-old female with a history of connective tissue disorder, tachycardia, hypertension, tobacco abuse, who came to the emergency room because of chest pain. The patient states that on Thursday night, she went up to wake up her son for his midnight shift and started getting chest pain. The patient states she was up walking around. She had 5/10 chest pain. She described it as a center of her chest. It did not radiate anywhere. She denied any diaphoresis. She denied any shortness of breath. The patient states she sat and rested and the discomfort went away. A little later, she got up to do some similar activity and the chest pain came back. It was not quite as intense at this time, but then she sat down and rested the second time and the pain went away. A third time, the patient got up to do activities and she had a return of her chest pain. It was a little bit more intense than it had been originally and when she sat down, it did not go away and at that time, she called the ambulance and came to the emergency room. In the emergency room, her EKG showed sinus tachycardia but no specific ST-T wave changes. She has ruled out for a myocardial infarction. In speaking with her today, she denies any symptoms today. PAST MEDICAL HISTORY: Connective tissue disorder, sinus tachycardia, tobacco abuse, asthma, hypertension. PAST SURGICAL HISTORY: Hysterectomy. OUTPATIENT MEDICATIONS: 1. Sulfasalazine 500 mg b.i.d. 2. Diltiazem 300 mg a day. 3. Multivitamin a day. 4. Aspirin 81 mg a day. ALLERGIES: Multiple allergies to PENICILLIN, CT DYE, PREDNISONE. FAMILY HISTORY: Her father at age 73 of carotid disease and abdominal aortic aneurysm. SOCIAL HISTORY: The patient is a tobacco user. She smokes one half pack of cigarettes a day. Rare alcohol intake. 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 She is . She has 4 children. PHYSICAL EXAM: Height is 5 feet 8 inches, weight is 169 pounds. Temperature 98.4, heart rate is 76, blood pressure 149/68, respiratory rate is 18, oxygen saturation 100% on room air. Sclerae anicteric. Oropharynx is pink without erythema. Carotid are 2+ without bruits. JVD is normal. Thyroid is normal. Cardiac Exam: S1, S2 without any murmurs, rubs, or gallops. Lungs are clear to auscultation bilaterally. There is no dullness to percussion. Abdomen is soft , nontender, nondistended with normoactive bowel sounds. Extremities showed no edema. She has 2+ pulses throughout. The patient is awake, alert, and oriented. She moves all 4 extremities equally. DIAGNOSTIC STUDIES/LAB DATA: CBC within normal limits. Chemistries within normal limits. Troponins are negative x3. Total cholesterol 221, HDL of 163, LDL of 30. EKG shows normal sinus rhythm. The patient did undergo an echocardiogram, which showed normal LV size and systolic function. There is relative hypokinesis of the base of the inferior wall, which is a nonspecific finding. There are no valvular abnormalities. It is not significantly different from her electrocardiogram in 2014. The patient underwent a chemical nuclear stress. Her stress images only demonstrate normal perfusion. She has normal LV function. IMPRESSION: A 52-year-old woman with connective tissue disorder, tobacco use, hypertension, who came to the hospital because of chest pain. The patient ruled out for a myocardial infarction. She had no ischemic EKG changes. The patient's echocardiogram and stress test are unremarkable. There is no clear evidence of ischemia. She has normal perfusion after her stress test. The patient does have a mildly elevated D-dimer level she says in the past. This has been abnormal over the years. Because of the patient's CT DYE allergy, the patient cannot get a CT angiogram to rule out pulmonary embolism. The patient will get a Doppler ultrasound of her lower extremities to look for deep venous thrombosis. Otherwise, I do not think that other cardiac workup is necessary. The patient will continue her outpatient medication. She should follow up with Dr. Evans. This case was discussed with Emily Nelson NP from the hospitalist service. [id number]/[facility] #: [id number] AVINASH
--- NOTE | 2017-07-22 17:35 | DS ---
CC: Dr. Evans; Dr. De La Cruz * DISCHARGE SUMMARY: DATE OF ADMISSION: 07/21/17 DATE OF DISCHARGE: 07/21/17 ATTENDING PHYSICIAN: Dr. Gen Callahan * (dictated by Tanisha Roberson NP). PRIMARY CARE PROVIDER: Dr. Gucci De La Cruz. SUPERVISOR METAL FABRICATING: Dr. Selam Evans. PRIMARY DIAGNOSIS: Chest pain, suspect noncardiac in nature. SECONDARY DIAGNOSES: 1. Connective tissue disorder. 2. Sinus tachycardia. 3. Tobacco abuse. 4. Asthma. 5. Hypertension. CONSULTATIONS WHILE IN THE HOSPITAL: Dr. Rafal Gaytan with Cardiology. STUDIES WHILE IN THE HOSPITAL: 1. Chest x-ray on 07/20/17. Radiologist's impression: No active cardiopulmonary disease is noted. 2. Transthoracic echocardiogram on 07/21/17. Billing Checker's conclusion: Mild- to- moderate concentric left ventricular hypertrophy was observed. There is normal left ventricular systolic function. The estimated ejection fraction is 55% to 60%. The basal inferior and mid inferior wall segments are hypokinetic ( score 2). The right ventricular chamber size and systolic function are within normal limits. There is a trace of aortic regurgitation, trace of mitral regurgitation, trace tricuspid regurgitation. There is no significant pericardial effusion. Compared to study of 12/06/13, the mild wall motion abnormalities are new, valve function is the same. 3. Nuclear exercise stress test, read pending at the time of this dictation. Billing Checker's observation: Chest pain: None. Limiting resting ECG, normal ST changes: None. Billing Checker's conclusion: No evidence of myocardial ischemia by EKG criteria with nuclear portion to be read separately by Radiology. 4. Bilateral lower extremity venous Doppler ultrasound on 07/21/17. Radiologist's impression: No evidence of deep venous thrombosis of either lower extremity is present. DISCHARGE MEDICATIONS: New home medications: 1. Acetaminophen 650 mg oral every 4 hours as needed for pain. Continued home medications: 1. Aspirin 81 mg oral daily. 2. Sulfasalazine 500 mg oral twice daily. 3. Multivitamin 1 tablet oral daily. 4. Diltiazem 300 mg oral daily. HISTORY OF PRESENT ILLNESS/HOSPITAL COURSE: Ms. Jayde Ambrose is a 52-year- old female with past medical history significant for connective tissue disorder , sinus tachycardia, tobacco abuse, asthma, and hypertension, who presented to the emergency room with complaints of intermittent chest discomfort over the past several months. The patient states that on 07/15/17, she had significantly worsened chest pain and presented to the emergency room. She was unhappy with her ER care and left, ultimately returning on 07/20/17 with complaints of severe chest pain. The patient states waking up to get her up for work, walking across the house and developing severe chest pain that lasted for approximately 5 minutes and then went away. She then got up a little while later to go to the bathroom and again developed chest discomfort when going to the bathroom. She stated that the pain went away when she rested. Again when the patient had pain, the second time the pain persisted, she called 911 and was brought to the emergency room for further evaluation. While in the emergency room, the patient received nitroglycerin and metoprolol, which improved her pain. While in the ER, she got up to the bathroom, developed severe chest pain while walking to the bathroom. It essentially incapacitated the patient, making it difficult to barely talk. The pain went away after a few minutes. The patient stated that the severe pain had gone away , but she had a constant ache. She had troponin of 0.00. She had no acute ST-T wave abnormalities. She had a chest x-ray without significant findings. Hospitalists were asked to evaluate the patient for evaluation. While in the hospital, the patient was initially refusing stress test due to her fear of possible complications from a stress test. She had 3 troponins of 0.00. She had a repeat EKG with no changes. Dr. Gaytan with Cardiology consulted on the patient and the patient agreed to have a nuclear stress test that per his read was low risk without significant findings. She had a transthoracic echocardiogram showing mild wall motion abnormalities that were felt to be nonspecific. She was noted to have slightly elevated D-dimer in the emergency room. Per the patient, she always has an elevated D-dimer due to her connective tissue disorder. She underwent bilateral lower extremity venous Doppler ultrasound showing no signs of lower extremity deep vein thrombosis. 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 The patient reported that her chest discomfort had essentially resolved during her stay. She is anxious to get home. She was noted to have elevated LDL of 163 and slightly elevated cholesterol of 221. She wished to work on diet modifications and not be started on cholesterol medication. The patient was offered nicotine replacement for at home and declined. The patient also was noted to have elevated lactate, which resolved during her stay. Ms. Jayde Ambrose is stable for discharge to home today. Vital signs are as follows: Temperature 97.3, heart rate 79, respiratory rate 16, O2 sat 99% on room air, blood pressure 142/65. DISCHARGE PLAN: Ms. Jayde Ambrose will be discharged to home. Activity as tolerated. She has been encouraged to be on a heart healthy diet consisting of diet rich in vegetables, fruits and whole grains, to have low fat dairy products , poultry, fish, legumes and to limit her sweets and concentrated sugars and to eat low sodium. As far as her chest pain that unclear etiology at this time, I do not suspect that it is cardiac in nature. We have ruled out pulmonary embolus. She has been asked to follow up with Dr. Evans in the next 1 to 2 weeks. She states that she already has an appointment she believes on . She will call the office in the morning to see if she can push that appointment up sooner. She has been asked to call her primary care provider office, Dr. De La Cruz to add up a followup appointment in the next 4 to 7 days. She has been resumed on her other usual home medications. She has been encouraged to stop smoking. POINTS OF DISCUSSION: The patient has been slightly hypertensive during her stay with systolic blood pressures in the 140s. The patient feels this is secondary to anxiety and stress. She does not want to go on any further anti- hypertensives at this time. Please follow her blood pressure as outpatient and start her on antihypertensives accordingly. The patient has borderline elevated LDL and cholesterol. She would like to work on diet control. Please continue to monitor her lipids outpatient and start her on a statin if deemed necessary. Please continue to encourage the patient to stop smoking prior to the discharge plan. The patient has been asked to return to the emergency room for any chest pain, shortness of breath. This is a summarized report of a complex medical history and hospital stay. For further details, please see the entire medical record. TIME SPENT: Time for this discharge was approximately 50 minutes, greater than half of that was spent with the patient, her and daughter discussing discharge plans and instructions. CONDITION ON DISCHARGE: Stable. TANISHA GUTIERREZ, LISANDRA [id number]/CPS #: [id number] [facility] CENTERYesika
--- NOTE | 2017-07-23 12:27 | RAD ---
INDICATION: Chest pain. COMPARISON: There are no prior studies available for comparison. Technique: The patient had a stress study under the direction of Dr. Cantu, the patient was given intervenous injection of Lexiscan. Subsequently the patient was given intravenous injection of 25.3 mCi of technetium 99m tetrofosmin and the heart was imaged in multiple projections. The patient was subsequently discharged and a rest study was not performed. Images were reconstructed in the axial, sagittal and coronal planes. FINDINGS: There appears to be normal wall motion and myocardial thickening. The left ventricular ejection fraction was calculated to be 69%. Review of the images demonstrates there is a small area of decreased activity at the cardiac apex. There is otherwise normal distribution of radial from cervical. IMPRESSION: THERE IS A SMALL AREA OF DECREASED ACTIVITY AT THE CARDIAC APEX POSSIBLY REPRESENTING APICAL THINNING VERSUS A SMALL INFARCT OR SMALL AREA OF ISCHEMIA. ASSESSMENT: Low risk. Based on imaging criteria from ACC/AHA 2002 Guideline Update for the Management of Patients With Chronic Stable Angina Table 23. Noninvasive Risk Stratification.
== END 2017-07-21 19:00 | disposition home or self-care (01) ==
LOC: ED 23:01 → MEDTELE 07-21 00:40
PROVIDERS: ADMIT Hospitalist; ATTEND Hospitalist
DX: R07.9 Chest pain, unspecified (principal); R00.0 Tachycardia, unspecified; Z72.0 Tobacco use; I10 Essential (primary) hypertension; Z79.82 Long term (current) use of aspirin; Z90.710 Acquired absence of both cervix and uterus
CPT/HCPCS: 36415; 71045; 78451; 78452; 80053; 80061; 83605; 84484; 85025; 85379; 85610; 85730; 93005; 93306; 93970; 96374; 96375; 99284; A9270-GY; A9502; G0378; J0280; J1644; J2785; J3490

== ENCOUNTER 2017-09-30 11:12 | Emergency (ER) | payer BC ==
[2017-09-30] MEDS ORDERED: Pantoprazole IV* 40 MG IV ONE (11:43)
[2017-09-30] MEDS ORDERED: Morphine VIAL* 10 MG/ML 1 ML VIAL IV ONE (11:43)
[2017-09-30] MEDS ORDERED: NS 0.9% 1000 ML* 2,000 ML IV ONE (11:43)
[2017-09-30] MEDS ORDERED: Ondansetron INJ* 2 MG/ML VIAL IV ONE (11:43)
[2017-09-30] MEDS ORDERED: Morphine VIAL* 4 MG/ML VIAL (1 ml vial) IV ONE ×2 (11:54→12:04)
--- OUTSIDE RECORDS SUMMARY | 2017-09-30 12:19 | XMS REPORT ---
:1965 External Reference #:[id number] Author Organization [facility] Address [address] [address] Phone [phone] Care Team Providers Name Role Phone Gucci De La Cruz MD Primary Care Physician Unavailable Payers Type Date Identification Numbers Payment Provider Subscriber Commercial Expires: Policy Number: Lifetime Benefit Deni Ambrose 2015 [id number] Solution PayID: [id number] [address] [place] [address] Medigap Part B Expires: 2014 Policy Number: [employer] Deni Ambrose [id number] Group Number: [id number] [address] PayID: [place] [address] Medigap Part B Effective: 2015 Policy Number: BS Facets Deni Ambrose [id number] PayID: [id number] [address] [address] [place] [address] Problems Date Description Provider Status Onset: 12/21/2013 Palpitations Selam Evans M.D. Active Onset: 12/21/2013 Electrocardiogram abnormal Selam Evans M.D. Active Onset: 12/21/2013 Tachycardia Selam Evans M.D. Active Onset: 12/21/2013 Mitral valve disorder Selam Evans M.D. Active Onset: 12/21/2013 Tobacco user Selam Evans M.D. 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 Cigarette Use current cigarette smoker ETOH Use Occasionally consumes beer Smoking Patient is a current smoker, smokes every day 1/2 ppd Recreational Drug Use Denies Drug Use Daily Caffeine 2 cups of International Ice Coffee daily Exercise Type/Frequency Exercises sporadically Allergies, Adverse Reactions, Alerts Date Description Reaction Status Severity Comments 12/20/2013 Penicillin active Severe Anaphylaxis 12/20/2013 Fluticasone active Moderate Shakiness 12/20/2013 Salmeterol active Moderate Shakiness 12/21/2013 Cymbalta expressive aphasia active Severe 12/21/2013 Plaquenil blistering active Severe 12/21/2013 Contrast Dye respiratory arrest active Severe Medications Medication Date Status Form Strength Qnty SIG Indications Ordering Provider Diltiazem HCL 09/16/ Active Caps ER 180mg 60cap one po bid R00.0 Qutaybkev ER Coated Beads 2017 24HR s Cathie Evans M.D. Sulfasalazine 12/30/ Active Tablets 500mg 360ta 1 po bid M35.8 Melvin 2016 lanie Doshi M.D. Aspir-Low / Active Tablets DR 81mg 30tab 1 by mouth Unknown 0000 s every day Albuterol / Active Nebulizer (2.5mg/3ML 100un 1 vial via Unknown Sulfate 0000 ) 0.083% its nebulizer 4 times daily as needed Proventil HFA / Active Aerosol 108(90Base 2unit 2 puffs by Unknown 0000 ) mcg/Act s mouth every 4 hours prn Multi For Her / Active Capsules 90cap 1 by mouth Unknown 0000 s every day Omeprazole / Active Capsules DR 40mg 1 by mouth Unknown 0000 bid Cardizem LA 08/14/ Hx Tablets ER 360mg 30tab one po qd R00.0 Selam 2018 - 24HR s S. 09/16/ Cristina Alexander M.D. Cardizem LA 10/08/ Hx Tablets ER 300mg 30tab one by R00.0 Qutaybkev 2017 - 24HR s mouth S. 03/16/ every day [facility] 2017 , Kandis Cardizem CD 11/08/ Hx Caps ER 240mg 30cap 1 by mouth R00.0 Selam 2014 - 24HR s every day S. 10/08/ [facility] 2016 , Kandis Cardizem CD 02/23/ Hx Caps ER 120mg 30cap 1 by mouth Nathaliatanicole 2014 - 24HR s every [facility]. [facility]/ [facility] Kandis Card[facility]em 12/21/ Hx Tablets 30mg 60tab 1 by mouth Nathaliataybeh 2014 - s twice a S. 02/23/ day marcy 2013 , Kandis Glucose Test / Hx as Unknown Strips 0000 - directed 2017 Arava / Hx Tablets 10mg 1 po bid M35.8 Unknown 0000 - 2016 Flexeril / Hx Tablets 10mg 60tab 1 by mouth Unknown 0000 - s twice a day as 2017 needed Omeprazole / Hx Capsules DR 40mg 30cap 1 po bid Unknown 0000 - s 2015 Keflex / Hx Capsules 500mg 20cap 1 po q8hrs Unknown 0000 - s 2013 Cardizem CD / Hx Caps ER 180mg 30cap take 1 tab 785.0 Mauser, 0000 - 24HR s by mouth Mark 11/08/ 2014 Protonix / Hx Tablets DR 40mg 1 by mouth Unknown 0000 - every day 2016 Pantoprazole / Hx Tablets DR 40mg 1 by mouth Unknown Sodium 0000 - every day 2017 Vital Signs Date Vital Result Comment 09/16/2017 Height 67.5 inches 5'7.50" Weight 168.00 lb Heart Rate 96 /min BP Systolic 158 mmHg regular adult cuff BP Diastolic 88 mmHg regular adult cuff BMI (Body Mass Index) 25.9 kg/m2 Ejection Fraction 55-60% echo 07/21/2017 08/31/2017 Height 67.5 inches 5'7.50" Heart Rate 80 /min BP Systolic 138 mmHg LA, reg BP Diastolic 78 mmHg LA, reg BP Systolic Sitting 134 mmHg Ra, reg BP Diastolic Sitting 74 mmHg Ra, reg 08/14/2017 Height 67.5 inches 5'7.50" Weight 168.00 lb w/shoes Heart Rate 96 /min BP Systolic 140 mmHg L/Arm Reg Cuff BP Diastolic 76 mmHg L/Arm Reg Cuff BMI (Body Mass Index) 25.9 kg/m2 Ejection Fraction 55-60% Echocardiogram 07/21/1017 01/30/2017 Height 67.5 inches 5'7.50" Weight 166.38 lb Heart Rate 88 /min BP Systolic Sitting 152 mmHg BP Diastolic Sitting 74 mmHg Respiratory Rate 14 /min Body Temperature 98.0 F Pain Level 6 BMI (Body Mass Index) 25.7 kg/m2 12/30/2016 Height 67.5 inches 5'7.50" Weight 163.00 lb Heart Rate 88 /min BP Systolic Sitting 160 mmHg BP Diastolic Sitting 92 mmHg Respiratory Rate 14 /min Pain Level 3 BMI (Body Mass Index) 25.1 kg/m2 11/24/2016 Height 67.5 inches 5'7.50" Weight 166.50 lb Heart Rate 102 /min BP Systolic 144 mmHg BP Diastolic 92 mmHg Respiratory Rate 14 /min Pain Level 5 BMI (Body Mass Index) 25.7 kg/m2 11/14/2016 Height 67.5 inches 5'7.50" Weight 166.00 lb w/shoes Heart Rate 102 /min BP Systolic Sitting 144 mmHg LA reg cuff BP Diastolic Sitting 88 mmHg LA reg cuff BMI (Body Mass Index) 25.6 kg/m2 Ejection Fraction 55-60% Echo 11/11/16 10/08/2016 Height 67.5 inches 5'7.50" Weight 166.00 lb w/shoes Heart Rate 100 /min BP Systolic Sitting 170 mmHg LA reg cuff BP Diastolic Sitting 88 mmHg LA reg cuff BMI (Body Mass Index) 25.6 kg/m2 Ejection Fraction 55-60% Echo 11/27/14 03/12/2016 Height 67.5 inches 5'7.50" Weight 169.00 lb w/shoes Heart Rate 100 /min BP Systolic Sitting 184 mmHg LA reg cuff BP Diastolic Sitting 96 mmHg LA reg cuff BMI (Body Mass Index) 26.1 kg/m2 Ejection Fraction 55-60% Echo 11/27/14 08/07/2015 Height 67.5 inches 5'7.50" Weight 170.00 lb with shoes Heart Rate 104 /min apical BP Systolic Sitting 128 mmHg BP Diastolic Sitting 92 mmHg BMI (Body Mass Index) 26.2 kg/m2 Ejection Fraction 55%-60% 11/27/14 01/09/2015 Height 67.5 inches 5'7.50" Weight 158.00 lb w/shoe Heart Rate 100 /min BP Systolic Sitting 158 mmHg LA reg cuff BP Diastolic Sitting 94 mmHg LA reg cuff BMI (Body Mass Index) 24.4 kg/m2 Ejection Fraction 55-60 echo 12/27/14 11/08/2014 Height 67.5 inches 5'7.50" Weight 159.50 lb Heart Rate 100 /min BP Systolic Standing 162 mmHg LA, reg BP Diastolic Standing 92 mmHg LA, reg BMI (Body Mass Index) 24.6 kg/m2 04/12/2014 Height 67.5 inches 5'7.50" Weight 165.00 lb with shoes Heart Rate 100 /min BP Systolic Sitting 144 mmHg LA, reg cuff BP Diastolic Sitting 86 mmHg LA, reg cuff BP Systolic Standing 144 mmHg LA BP Diastolic Standing 92 mmHg LA Respiratory Rate 14 /min BMI (Body Mass Index) 25.5 kg/m2 02/23/2014 Height 67.5 inches 5'7.50" Weight 163.00 lb Heart Rate 94 /min BP Systolic Sitting 154 mmHg LA reg cuff BP Diastolic Sitting 74 mmHg LA reg cuff Respiratory Rate 14 /min BMI (Body Mass Index) 25.1 kg/m2 12/21/2013 Height 67.5 inches 5'7.50" Weight 161.00 lb Heart Rate 101 /min BP Systolic Sitting 154 mmHg ra: 160/100 BP Diastolic Sitting 100 mmHg ra: 160/100 BP Systolic Standing 150 mmHg BP Diastolic Standing 100 mmHg BMI (Body Mass Index) 24.8 kg/m2 Results Test Date Test Result H/L Range Note Laboratory test finding 01/27/2017 Erythrocyte Sed Rate 59 mm/Hr High 0- 30 1 C Reactive Protein 38.26 mg/L High < 5.00 2 CBC Auto Diff 01/27/2017 White Blood Count 7.3 10^3/uL 3.5-10.8 Red Blood Count 4.64 10^6/uL 4.0-5.4 Hemoglobin 14.7 g/dL 12.0-16.0 Hematocrit 43 % 35-47 Mean Corpuscular Volume 93 fL 80-97 Mean Corpuscular Hemoglobin 32 pg High 27-31 Mean Corpuscular HGB Conc 34 g/dL 31-36 Red Cell Distribution Width 14 % 10.5-15 Platelet Count 294 10^3/uL 150-450 Mean Platelet Volume 8 um3 7.4-10.4 Abs Neutrophils 4.8 10^3/uL 1.5-7.7 Abs Lymphocytes 1.6 10^3/uL 1.0-4.8 Abs Monocytes 0.6 10^3/uL 0-0.8 Abs Eosinophils 0.2 10^3/uL 0-0.6 Abs Basophils 0.1 10^3/uL 0-0.2 Abs Nucleated RBC 0 10^3/uL Granulocyte % 66.3 % 38-83 Lymphocyte % 21.6 % Low 25-47 Monocyte % 8.6 % 1-9 Eosinophil % 2.5 % 0-6 Basophil % 1.0 % 0-2 Nucleated Red Blood Cells % 0 Comp Metabolic Panel 01/27/2017 Sodium 137 mmol/L 133-145 Potassium 4.6 mmol/L 3.5-5.0 Chloride 103 mmol/L 101-111 Co2 Carbon Dioxide 27 mmol/L 22-32 Anion Gap 7 mmol/L 2-11 Glucose 111 mg/dL High 70-100 Blood Urea Nitrogen 11 mg/dL 6-24 Creatinine 0.72 mg/dL 0.51-0.95 BUN/Creatinine Ratio 15.3 8-20 Calcium 10.1 mg/dL 8.6-10.3 Total Protein 6.9 g/dL 6.4-8.9 Albumin 4.3 g/dL 3.2-5.2 Globulin 2.6 g/dL 2-4 Albumin/Globulin Ratio 1.7 1-3 Total Bilirubin 0.40 mg/dL 0.2-1.0 Alkaline Phosphatase 98 U/L 34-104 Alt 55 U/L High 7-52 Ast 36 U/L 13-39 Egfr Non- 85.1 >60 Egfr 109.4 >60 3 Laboratory test finding 11/27/2016 Cyclic Citrullinated Pep <15.6 U 4 Igg Pthi 11/27/2016 Calcium (PTH Intact) 9.7 mg/dL 8.6-10.3 PTH Intact 5.6 pmol/L 1.3-9.3 Laboratory test 11/27/2016 Mitochondrial AB AMA M2 <0.1 U 5 finding Igg Hepatitis Acute Panel 11/27/2016 Hepatitis C Antibody Nonreactive Nonreactive 6 Hepatitis A AB Igm Nonreactive Nonreactive 7 Hepatitis B Core AB Igm Nonreactive Nonreactive 8 Hepatitis B Surface Ag Nonreactive Nonreactive 9 Laboratory test finding 11/27/2016 Vitamin D, 1,25 Dihydroxy 81 pg/mL 18- 78 10 TSH (Thyroid Stim Horm) 1.39 mcIU/mL 0.34-5.60 11 Creatine Kinase(CK) 36 U/L 10-223 12 Nuclear AB (Dawna) By Ifa Igg <1:80 (Negative) 13 Comp Metabolic Panel 11/27/2016 Sodium 142 mmol/L 133-145 Potassium 4.4 mmol/L 3.5-5.0 Chloride 107 mmol/L 101-111 Co2 Carbon Dioxide 27 mmol/L 22-32 Anion Gap 8 mmol/L 2-11 Glucose 74 mg/dL 70-100 Blood Urea Nitrogen 12 mg/dL 6-24 Creatinine 0.65 mg/dL 0.51-0.95 BUN/Creatinine Ratio 18.5 8-20 Calcium 9.7 mg/dL 8.6-10.3 Total Protein 7.2 g/dL 6.4-8.9 Albumin 4.5 g/dL 3.2-5.2 Globulin 2.7 g/dL 2-4 Albumin/Globulin Ratio 1.7 1-3 Total Bilirubin 0.40 mg/dL 0.2-1.0 Alkaline Phosphatase 116 U/L High 34-104 Alt 64 U/L High 7-52 Ast 41 U/L High 13-39 Egfr Non- 95.7 >60 Egfr 123.1 >60 14 CBC Auto Diff 11/27/2016 White Blood Count 10.5 10^3/uL 3.5-10.8 Red Blood Count 4.78 10^6/uL 4.0-5.4 Hemoglobin 14.6 g/dL 12.0-16.0 Hematocrit 45 % 35-47 Mean Corpuscular Volume 94 fL 80-97 Mean Corpuscular Hemoglobin 31 pg 27-31 Mean Corpuscular HGB Conc 33 g/dL 31-36 Red Cell Distribution Width 14 % 10.5-15 Platelet Count 291 10^3/uL 150-450 Mean Platelet Volume 8 um3 7.4-10.4 Abs Neutrophils 7.8 10^3/uL High 1.5-7.7 Abs Lymphocytes 1.7 10^3/uL 1.0-4.8 Abs Monocytes 0.8 10^3/uL 0-0.8 Abs Eosinophils 0.1 10^3/uL 0-0.6 Abs Basophils 0.1 10^3/uL 0-0.2 Abs Nucleated RBC 0 10^3/uL Granulocyte % 74.2 % 38-83 Lymphocyte % 16.2 % Low 25-47 Monocyte % 7.2 % 1-9 Eosinophil % 1.4 % 0-6 Basophil % 1.0 % 0-2 Nucleated Red Blood Cells % 0 Laboratory test finding 11/27/2016 Erythrocyte Sed Rate 49 mm/Hr High 0- 30 15 C Reactive Protein 29.48 mg/L High < 5.00 16 Franca Igg AB Reflex 11/27/2016 SS-A/Ro Antibody <0.2 U 17 SS-B/La Antibody <0.2 U 18 Sm (Lindquist) IgG Antibody <0.2 U 19 U1-nRNP Antibody 0.2 U 20 Scl-70 (Scleroderma) Antibody <0.2 U 21 Deana-1 Antibody <0.2 U 22 Laboratory test finding 11/27/2016 Complement C3 155 mg/dL 75 - 175 23 Complement C4 36 mg/dL 14 - 40 24 Anti Double Stranded Dna AB <12.3 IU/mL 25 1 Please check 2 days prior to follow up 2 Acute inflammation: >10.00 3 Because ethnic data is not always readily available, this report includes an eGFR for both -Americans and non- Americans. The National Kidney Disease Education Program (NKDEP) does not endorse the use of the MDRD equation for patients that are not between the ages of 18 and 70, are , have extremes of body size, muscle mass, or nutritional status, or are non- or non-. According to the National Kidney Foundation, irrespective of diagnosis, the stage of the disease is based on the level of kidney function: Stage Description GFR(mL/min/1.73 m(2)) 1 Kidney damage with normal or decreased GFR 90 2 Kidney damage with mild decrease in GFR 60-89 3 Moderate decrease in GFR 30-59 4 Severe decrease in GFR 15-29 5 Kidney failure <15 (or dialysis) 4 REFERENCE VALUE <20.0 (Negative) Test Performed by: [facility] [address] [place] [address] 5 REFERENCE VALUE <0.1 (Negative) Test Performed by: [facility] [address] [place] [address] 6 Please check this week 7 Please check this week 8 Please check this week 9 Please check this week 10 ADDITIONAL INFORMATION This test was developed and its performance characteristics determined by [facility] in a manner consistent with CLIA requirements. This test has not been cleared or approved by the U.S. Food and Drug Administration. Test Performed by: [facility] [address] [place] [address] 11 Please check this week 12 Please check this week 13 <1:80 (Negative) REFERENCE VALUE <1:80 (Negative) Test Performed by: [address] [address] 14 Because ethnic data is not always readily available, this report includes an eGFR for both -Americans and non- Americans. The National Kidney Disease Education Program (NKDEP) does not endorse the use of the MDRD equation for patients that are not between the ages of 18 and 70, are , have extremes of body size, muscle mass, or nutritional status, or are non- or non-. According to the National Kidney Foundation, irrespective of diagnosis, the stage of the disease is based on the level of kidney function: Stage Description GFR(mL/min/1.73 m(2)) 1 Kidney damage with normal or decreased GFR 90 2 Kidney damage with mild decrease in GFR 60-89 3 Moderate decrease in GFR 30-59 4 Severe decrease in GFR 15-29 5 Kidney failure <15 (or dialysis) 15 Please check this week 16 Acute inflammation: >10.00 17 REFERENCE VALUE <1.0 (Negative) 18 REFERENCE VALUE <1.0 (Negative) 19 REFERENCE VALUE <1.0 (Negative) 20 REFERENCE VALUE <1.0 (Negative) 21 REFERENCE VALUE <1.0 (Negative) 22 REFERENCE VALUE <1.0 (Negative) Test Performed by: [facility] [employer] [facility] [address] [place] [address] 23 Test Performed by: [facility] [address] [place] [address] 24 Test Performed by: [facility] [address] [place] [address] 25 REFERENCE VALUE <30.0 (Negative) Test Performed by: [address] [address] Procedures Date CPT Code Description Status 08/20/2017 41598 Holter Monitor Review (24 hr)dr gorman & claudia Completed only 08/19/2017 17088 ECG Monitor/Recording W/Visual Superimposition Scanning Completed 08/14/2017 94128 EKG Tracing & Interpretation Completed 07/21/2017 40919 ECHO Transthorasic Realtime 2D W Doppler & Color Completed [facility]osp 11/27/2016 Bone Mineral Density Test Completed 11/11/2016 11314 ECHO Transthoracic, Real-Time 2D With Doppler And Color Completed Flow 11/07/2016 35007 Holter Monitor Review (24 hr)dr gorman & claudia Completed only 11/05/2016 94954 ECG Monitor/Recording W/Visual Superimposition Scanning Completed 10/08/2016 02439 EKG Tracing & Interpretation Completed 03/21/2016 33147 Holter Monitor Review (24 hr)dr gorman & claudia Completed only 03/20/2016 19712 ECG Monitor/Recording W/Visual Superimposition Scanning Completed 03/12/2016 59753 EKG Tracing & Interpretation Completed 08/07/2015 33326 EKG Tracing & Interpretation Completed 01/06/2015 10877 Holter Monitor Review (24 hr)dr wallaceamp; claudia Completed only 01/06/2015 32304 ECG Monitor/Recording W/Visual Superimposition Scanning Completed 01/03/2015 91120 Holter Monitor Review (24 hr)dr wallaceamp; claudia Completed only 01/03/2015 35048 ECG Monitor/Recording W/Visual Superimposition Scanning Completed 11/27/2014 19295 ECHO Transthoracic, Real-Time 2D With Doppler And Color Completed Flow 11/08/2014 95876 EKG Tracing & Interpretation Completed 05/29/2014 45417 Holter Monitor Review (24 hr)dr wallaceamp; claudia Completed only 04/12/2014 48141 EKG Tracing & Interpretation Completed 02/08/2014 43375 Holter Monitoring 24 HR New Completed 12/21/2013 67441 EKG Tracing & Interpretation Completed 12/06/2013 82704 ECHO Transthorasic Realtime 2D W Doppler & Color Completed Flow [facility] 12/05/2013 51895 Holter Monitor Review (24 hr)dr gorman & claudia Completed only Encounters Type Date Location Provider CPT E/M Dx Office Visit 08/31/2017 2:30p [facility] [place] [address] I10 Office Visit 08/14/2017 3:40p [facility] Nathaliataybeh S. Cristina, 32068 I10 M.D. Z72.0 R00.0 Office Visit 07/21/2017 12:08p [facility] [place] Gaytan, [address]7574 R07.9 [employer] M.D. I10 Z72.0 L94.9 Office Visit 01/30/2017 11:20a [facility] Doshi, 12908 M35.8 [employer] M.D. Z79.899 M79.1 M25.50 K82.4 Office Visit 12/30/2016 10:20a [facility], 57919 M35.8 [employer] M.D. Z79.899 M79.1 M25.50 R94.5 F17.210 Office Visit 11/24/2016 4:00p [facility], 45027 M32.9 [employer] M.D. M06.4 M25.50 F17.210 Z79.899 Z78.0 Office Visit 11/14/2016 1:30p [facility] KARLIE Peters [address]93 R00.0 R07.9 I10 F17.210 M32.9 Office Visit 10/08/2016 3:20p [facility] Qutaybeh S. Cristina, 06357 R00.2 M.D. R00.0 I10 F17.210 Office Visit 03/12/2016 4:20p [facility] Qutaybeh S. Cristina, 53194 R00.0 M.D. R00.2 I10 F17.210 I34.0 Office Visit 08/07/2015 9:00a [facility] Nathaliataybeh S. Cristina, 93480 R00.0 M.D. R00.2 I10 F17.210 I34.0 Office Visit 01/09/2015 11:30a [facility] KARLIE Peters 26158 785.0 785.1 401.1 305.1 Office Visit 11/08/2014 10:00a [facility] Nathaliataybkev S. Sushilpa, 96178 786.50 M.D. 401.1 785.1 785.0 Office Visit 04/12/2014 9:00a [facility] KARLIE Peters [address]8864 401.1 424.0 785.1 785.0 Office Visit 02/23/2014 1:20p [facility] Qutaybeh S. haydjustina, 32716 785.0 M.D. 785.1 424.0 401.1 Office Visit 12/21/2013 1:40p [facility] Qutaybeh S. Sushilpa, 11293 785.1 M.D. 794.31 785.0 424.0 305.1 Office Visit 10/18/2013 12:49p [facility] Shari Soria, N.P. [address]508 786.05 Hospitalists 493.02 466.0 415.19 Plan of Care 09/16/2017 - Selam Evans M.D.I10 Essential (primary) hypertensionFollow up:6 months ov Nan one yr with meR07.9 Chest pain, unspecifiedReferral:Yoav Hollingsworth MD, Gastroenterology
[2017-09-30 12:23] LABS: ABS Basophils 0.1 10^3/ul (0-0.2); ABS Eosinophils 0.1 10^3/ul (0-0.6); ABS Lymphocytes 1.9 10^3/ul (1.0-4.8); ABS Monocytes 0.6 10^3/ul (0-0.8); ABS Neutrophils 6.9 10^3/ul (1.5-7.7); ABS Nucleated RBC 0 10^3/ul; Eosinophil % 1.5 % (0-6); Hematocrit 38 % (35-47); Hemoglobin 12.7 g/dl (12.0-16.0); Lymphocyte % 19.6 % (25-47); Mean Corpuscular HGB Conc 34 g/dl (31-36); Mean Corpuscular Hemoglobin 31 pg (27-31); Mean Corpuscular Volume 91 fL (80-97); Mean Platelet Volume 7.2 um3 (7.4-10.4); Nucleated Red Blood Cells % 0.1; Platelet Count 329 10^3/ul (150-450); Red Blood Count 4.12 10^6/ul (4.0-5.4); Red Cell Distribution Width 14 % (10.5-15); White Blood Count 9.6 10^3/ul (3.5-10.8)
[2017-09-30 12:34] LABS: INR 0.95 (0.77-1.02)
[2017-09-30 12:52] LABS: EGFR Non-African American 86.1 (>60)
--- NOTE | 2017-09-30 13:06 | RAD ---
HISTORY: Epigastric pain ultrasound of the abdomen dated January 14, 2017 COMPARISONS: None TECHNIQUE: Multiple transverse and longitudinal ultrasound images were obtained of the right upper quadrant. FINDINGS: LIVER: The liver exhibits homogenously increased echogenicity, and appearance that can be seen with hepatic steatosis. The liver is normal in size measuring 18 cm in greatest dimension.. Normal hepatic and portal venous blood flow is duplicated with color flow imaging. There is no gross intrahepatic biliary duct dilatation. GALLBLADDER AND EXTRAHEPATIC BILIARY DUCT: Similar to the prior ultrasound there are echogenic foci that appear to be embedded into the wall of the gallbladder that exhibit "twinkle artifact". Otherwise the gallbladder is normal in appearance without intraluminal stones or other soft tissue masses. There is no pericholecystic fluid or gallbladder wall thickening. The common bile duct measures a maximum diameter of 3 mm. PANCREAS: The portions of the pancreas not obscured by bowel gas are normal in appearance. RIGHT KIDNEY: The right kidney is normal in size, morphology and echogenicity. AORTA AND IVC: The visualized portions are normal in appearance and not pathologically dilated. IMPRESSION: 1. SIMILAR TO THE PRIOR ULTRASOUND OF THE ABDOMEN, SONOGRAPHIC FINDINGS OF THE GALLBLADDER ARE COMPATIBLE WITH CHOLESTEROLOSIS OF THE GALLBLADDER WALL. THERE IS NO SIGN OF ACUTE INFLAMMATORY CHANGE OR BILIARY OBSTRUCTION. 2. LIKELY HEPATIC STEATOSIS.
--- NOTE | 2017-09-30 13:25 | RAD ---
HISTORY: Epigastric pain, upper neck pain, chest pain COMPARISONS: February 02, 2010 CT of the chest TECHNIQUE: Multiple contiguous axial CT scans were obtained of the chest, abdomen, and pelvis, without intravenous contrast enhancement. Coronal and sagittal multiplanar reformations are submitted for review.. Oral contrast was not administered. FINDINGS: The study is limited by the lack of intravenous contrast. This limits evaluation of the solid organs and vasculature. CHEST NECK AND THYROID: The lower neck and thyroid are unremarkable. CHEST WALL: There is no lower cervical, axillary, or supraclavicular lymphadenopathy by size criteria. HEART AND PERICARDIUM: Mild coronary calcifications are noted. AORTA AND PULMONARY VASCULATURE: The aorta and pulmonary vasculature are normal. MEDIASTINUM: There is no mediastinal lymphadenopathy by size criteria. TAMMI: There is no hilar lymphadenopathy by size criteria. AIRWAY AND ESOPHAGUS: The airway is unremarkable, without endobronchial filling defect. The esophagus is grossly normal. LUNG PARENCHYMA: There is bullous change within the periphery of the right upper lobe, stable from the previous examination. There is a nodular density of the posterior aspect of the right lung apex measuring 0.6 cm in size, stable from 2010 consistent with benign nodule. An azygos fissure is noted. PLEURA: No pleural abnormalities are noted. BONES AND SOFT TISSUES: No bone or soft tissue abnormalities are noted. ABDOMEN/PELVIS: LIVER: The liver is diffusely low in attenuation compared to the spleen. There are no focal hepatic parenchymal masses. BILE DUCTS: There is no intrahepatic or extrahepatic biliary dilatation. GALLBLADDER: The gallbladder is normal, without pericholecystic inflammatory change. PANCREAS: The pancreas is normal, without mass or ductal dilatation. SPLEEN: Normal in size and appearance. UPPER GI TRACT: Evaluation of the gastrointestinal tract is limited by incomplete gastric distention. The upper GI tract is unremarkable. SMALL BOWEL & MESENTERY: The small bowel is normal in contour, course, and caliber. There is no obstruction or dilatation. COLON: The colon is normal in contour, course, caliber. There is no pericolonic inflammatory change. There is a tubular, vermiform, hollow viscus that is blind ending, and originates from the cecum, consistent with a normal appendix. There is no periappendiceal inflammatory change. This is best seen on axial images 114, 15 ADRENALS: Normal bilaterally. KIDNEYS: There are punctate renal calyceal stones bilaterally measuring up to 0.2 cm in size. There is no appreciable ureteral calculus or hydronephrosis. BLADDER: The bladder is smooth in contour. PELVIC ORGANS: The pelvic organs are not visualized. AORTA: There is calcific atherosclerotic disease of the abdominal aorta and its branches, without aneurysmal dilatation IVC: Unremarkable LYMPH NODES: There is no lymphadenopathy by size criteria. ABDOMINAL WALL: There is no evidence for abdominal wall hernia. BONES AND SOFT TISSUES: There are mild diffuse degenerative changes. OTHER: None IMPRESSION: 1. NO ACUTE NONCONTRAST CT PATHOLOGY OF THE CHEST, ABDOMEN, PELVIS. 2. FATTY INFILTRATION OF THE LIVER. 3. ATHEROSCLEROSIS
--- NOTE | 2017-09-30 13:44 | RAD ---
HISTORY: Epigastric pain, chest pain COMPARISONS: July 20, 2017 VIEWS: 1: frontal portable view of the chest at 1:12 PM FINDINGS: LINES AND TUBES: None. CARDIOMEDIASTINAL SILHOUETTE: The cardiomediastinal silhouette is normal for portable technique. PLEURA: The costophrenic angles are sharp. No pleural abnormalities are noted. LUNG PARENCHYMA: The lungs are clear. ABDOMEN: The upper abdomen is clear. There is no subphrenic gas. BONES AND SOFT TISSUES: No bone or soft tissue abnormalities are noted. IMPRESSION: NO ACTIVE CARDIOPULMONARY DISEASE.
[2017-09-30 15:33] VITALS: BP 120/68
--- NOTE | 2017-09-30 17:13 | ED ---
Ángel Lane Julia, scribed for Italo Delnaey MD on 09/30/17 at 1137 . HPI Chest Pain - HPI Summary HPI Summary: This patient is a 52 year old F presenting to [facility] accompanied by her with a chief complaint of constant circumferential chest pain that radiates into her neck and jaw pain for the past three days. Pt states she has had similar symptoms intermittently for the past year. Patient reports nausea, diaphoresis, and SOB. The patient rates the pain 10/10 in severity at its worse , and currently 7/10. Symptoms have been aggravated by eating or drinking in the past. PMHx includes GERD and A-fib. Medications reviewed, including Cardizem , sulfasalazine, and 81mg of ASA daily. Pt requests lower dose of morphine. - History of Current Complaint Chief Complaint: EDChestPainROMI Time Seen by Provider: 09/30/17 11:24 Hx Obtained From: Patient Onset/Duration: Started Days Ago Timing: Constant Initial Severity: Severe Current Severity: Moderate Pain Intensity: 7 Pain Scale Used: 0-10 Numeric Chest Pain Location: Diffuse Chest Pain Radiates: Yes Chest Pain Radiates To:: Jaw, Neck Aggravating Factor(s): Other: - eating/drinking Associated Signs and Symptoms: Positive: Shortness of Breath, Diaphoresis, Nausea Related History: Similar Episode/Dx as: - Additional Pertinent History Primary Care Physician: [id number] - Allergy/Home Medications Allergies/Adverse Reactions: Allergies Allergy/AdvReac Type Severity Reaction Status Date / Time duloxetine Allergy Severe See Comment Verified 07/21/17 00:12 Penicillins Allergy Severe Anaphylatic Verified 07/21/17 00:13 Shock hydroxychloroquine Allergy Blisters Verified 07/21/17 00:12 [From Plaquenil] prednisone Allergy Unknown Verified 07/21/17 00:[address] DYE Allergy Severe Anaphylatic Uncoded 07/20/17 23:06 Shock Home Medications: Home Medications Omeprazole CAP* [Prilosec CAP* 20 MG] 40 mg PO BID 09/30/17 [History Confirmed 09/30/17] PMH/Surg Hx/FS Hx/Imm Hx Endocrine/Hematology History: Reports: Other Endocrine/Hematological Disorders - Connective tissue disorder Denies: Hx Anticoagulant Therapy Cardiovascular History: Reports: Hx Angina, Hx Atrial Fibrillation, Hx Hypercholesterolemia, Hx Hypertension Denies: Hx Deep Vein Thrombosis, Hx Myocardial Infarction Respiratory History: Reports: Hx Asthma GI History: Reports: Hx Gastroesophageal Reflux Disease Musculoskeletal History: Denies: Hx Osteoporosis Sensory History: Denies: Hx Contacts or Glasses, Hx Hearing Aid Opthamlomology History: Denies: Hx Contacts or Glasses - Cancer History Cancer Type, Location and Year: Cervical Cancer - Surgical History Surgery Procedure, Year, and Place: Hysterectomy Infectious Disease History: No Infectious Disease History: Denies: Traveled Outside the [place] in Last 30 Days - Family History Known Family History: Positive: Cardiac Disease, Other - mother with ID age 62 - Social History Alcohol Use: Occasionally Hx Substance Use: No Substance Use Type: Reports: None Hx Tobacco Use: Yes Smoking Status (MU): Current Every Day Smoker Type: Cigarettes Amount Used/How Often: PPD Review of Systems Positive: Skin Diaphoresis Positive: Chest Pain Positive: Shortness Of Breath Positive: Nausea Positive: Myalgia - neck and jaw pain All Other Systems Reviewed And Are Negative: Yes Physical Exam - Summary Physical Exam Summary: General: well-appearing, moderate pain distress Skin: warm, color reflects adequate perfusion, dry Head: normal Eyes: EOMI, LORRAINE ENT: normal Neck: supple, nontender Respiratory: CTA, breath sounds present Cardiovascular: RRR Abdomen: soft, epigastrium tender Bowel: present Musculoskeletal: normal, strength/ROM intact Neurological: normal, sensory/motor intact, A&O x3 Psychological: affect/mood appropriate Triage Information Reviewed: Yes Vital Signs On Initial Exam: Initial Vitals Temp Pulse Resp BP Pulse Ox 98.4 F 88 16 175/85 98 09/30/17 11:23 09/30/17 11:23 09/30/17 11:23 09/30/17 11:23 09/30/17 11:23 Vital Signs Reviewed: Yes Diagnostics - Vital Signs Vital Signs Temp Pulse Resp BP Pulse Ox 09/30/17 11:23 98.4 F 88 16 175/85 98 - Laboratory Lab Results: Lab Results 09/30/17 09/30/17 09/30/17 Range/Units 12:15 12:15 12:15 WBC 9.6 (3.5-10.8) 10^3/ul RBC 4.12 (4.0-5.4) 10^6/ul Hgb 12.7 (12.0-16.0) g/dl Hct 38 (35-47) % MCV 91 (80-97) fL MCH 31 (27-31) pg MCHC 34 (31-36) g/dl RDW 14 (10.5-15) % Plt Count 329 (150-450) 10^3/ul MPV 7.2 L (7.4-10.4) um3 Neut % (Auto) 71.2 (38-83) % Lymph % (Auto) 19.6 L (25-47) % Bladen % (Auto) 6.6 (0-7) % Eos % (Auto) 1.5 (0-6) % Baso % (Auto) 1.1 (0-2) % Absolute Neuts (auto) 6.9 (1.5-7.7) 10^3/ul Absolute Lymphs (auto) 1.9 (1.0-4.8) 10^3/ul Absolute Monos (auto) 0.6 (0-0.8) 10^3/ul Absolute Eos (auto) 0.1 (0-0.6) 10^3/ul Absolute Basos (auto) 0.1 (0-0.2) 10^3/ul Absolute Nucleated RBC 0 10^3/ul Nucleated RBC % 0.1 INR (Anticoag Therapy) 0.95 (0.77-1.02) APTT 32.2 (26.0-36.3) seconds D-Dimer, Quantitative 281 H (Less Than 230) ng/mL Sodium 139 (139-145) mmol/L Potassium 4.5 (3.5-5.0) mmol/L Chloride 106 (101-111) mmol/L Carbon Dioxide 28 (22-32) mmol/L Anion Gap 5 (2-11) mmol/L BUN 14 (6-24) mg/dL Creatinine 0.71 (0.51-0.95) mg/dL Est GFR ( Amer) 110.7 (>60) Est GFR (Non-Af Amer) 86.1 (>60) BUN/Creatinine Ratio 19.7 (8-20) Glucose 101 H (70-100) mg/dL Lactic Acid (0.5-2.0) mmol/L Calcium 9.8 (8.6-10.3) mg/dL Total Bilirubin 0.30 (0.2-1.0) mg/dL AST 18 (13-39) U/L ALT 25 (7-52) U/L Alkaline Phosphatase 102 (34-104) U/L Total Creatine Kinase 28 (10-223) U/L CK-MB (CK-2) 1.1 (0.6-6.3) ng/mL Troponin I 0.00 (<0.04) ng/mL C-Reactive Protein 36.56 H (< 5.00) mg/L B-Natriuretic Peptide ( - 100) pg/mL Total Protein 7.0 (6.4-8.9) g/dL Albumin 4.2 (3.2-5.2) g/dL Globulin 2.8 (2-4) g/dL Albumin/Globulin Ratio 1.5 (1-3) Lipase 23 (11.0-82.0) U/L TSH 1.20 (0.34-5.60) mcIU/mL 09/30/17 09/30/17 Range/Units 12:15 12:15 WBC (3.5-10.8) 10^3/ul RBC (4.0-5.4) 10^6/ul Hgb (12.0-16.0) g/dl Hct (35-47) % MCV (80-97) fL MCH (27-31) pg MCHC (31-36) g/dl RDW (10.5-15) % Plt Count (150-450) 10^3/ul MPV (7.4-10.4) um3 Neut % (Auto) (38-83) % Lymph % (Auto) (25-47) % Bladen % (Auto) (0-7) % Eos % (Auto) (0-6) % Baso % (Auto) (0-2) % Absolute Neuts (auto) (1.5-7.7) 10^3/ul Absolute Lymphs (auto) (1.0-4.8) 10^3/ul Absolute Monos (auto) (0-0.8) 10^3/ul Absolute Eos (auto) (0-0.6) 10^3/ul Absolute Basos (auto) (0-0.2) 10^3/ul Absolute Nucleated RBC 10^3/ul Nucleated RBC % INR (Anticoag Therapy) (0.77-1.02) APTT (26.0-36.3) seconds D-Dimer, Quantitative (Less Than 230) ng/mL Sodium (139-145) mmol/L Potassium (3.5-5.0) mmol/L Chloride (101-111) mmol/L Carbon Dioxide (22-32) mmol/L Anion Gap (2-11) mmol/L BUN (6-24) mg/dL Creatinine (0.51-0.95) mg/dL Est GFR ( Amer) (>60) Est GFR (Non-Af Amer) (>60) BUN/Creatinine Ratio (8-20) Glucose (70-100) mg/dL Lactic Acid 1.0 (0.5-2.0) mmol/L Calcium (8.6-10.3) mg/dL Total Bilirubin (0.2-1.0) mg/dL AST (13-39) U/L ALT (7-52) U/L Alkaline Phosphatase (34-104) U/L Total Creatine Kinase (10-223) U/L CK-MB (CK-2) (0.6-6.3) ng/mL Troponin I (<0.04) ng/mL C-Reactive Protein (< 5.00) mg/L B-Natriuretic Peptide 31 ( - 100) pg/mL Total Protein (6.4-8.9) g/dL Albumin (3.2-5.2) g/dL Globulin (2-4) g/dL Albumin/Globulin Ratio (1-3) Lipase (11.0-82.0) U/L TSH (0.34-5.60) mcIU/mL Result Diagrams: 09/30/17 12:15 09/30/17 12:15 Lab Statement: Any lab studies that have been ordered have been reviewed, and results considered in the medical decision making process. - Radiology CXR Radiology Interpretation Completed By: Radiologist - NO ACTIVE CARDIOPULMONARY DISEASE. ED Physician has reviewed this report. - CT Chest/A/P CT Interpretation Completed By: Radiologist - 1. NO ACUTE NONCONTRAST CT PATHOLOGY OF THE CHEST, ABDOMEN, PELVIS. 2. FATTY INFILTRATION OF THE LIVER. 3. ATHEROSCLEROSIS ED Physician has reviewed this report. - EKG 1112 Cardiac Rate: NL EKG Rhythm: Sinus Rhythm - at 88 ST Segment: Normal Ectopy: None - Additional Comments Diagnostic Additional Comments: A Gallbladder US reveals, as per radiologist: 1. SIMILAR TO THE PRIOR ULTRASOUND OF THE ABDOMEN, SONOGRAPHIC FINDINGS OF THE GALLBLADDER ARE COMPATIBLE WITH CHOLESTEROLOSIS OF THE GALLBLADDER WALL. THERE IS NO SIGN OF ACUTE INFLAMMATORY CHANGE OR BILIARY OBSTRUCTION. 2. LIKELY HEPATIC STEATOSIS. ED Physician has reviewed this report. Chest Pain Course/Dx - Course Course Of Treatment: PAIN GONE IN ED. DISCUSSED RESULTS WITH THE PATIENTTO INCLUDE THE ELEVATED DDIMER AND GB CHOLESTEROLOSIS. SHE RELATES SHE HAS HAD A AN ELEVATED DDIMER IN THE PAST. HER SX ARE NOT CONSISTENT WITH PE THEREFORE, NO V/Q SCAN TODAY. SHE REPORTS THIS IS THE SAME PAIN SHE HAS HAD IN THE PAST AND HAS GI F/U 10/23/17. F/U PMD/GI; RETURN IF WORSE. - Diagnoses Provider Diagnoses: Epigastric pain, Chest pain Discharge - Sign-Out/Discharge Documenting (check all that apply): Discharge/Admit/Transfer - Discharge Plan Condition: Stable Disposition: HOME Patient Education Materials: Chest Pain (ED), Epigastric Pain (ED) Referrals: Jono COLLINS,Gucci Florez [Primary Care Provider] - Additional Instructions: FOLLOW UP WITH YOUR DOCTOR. RETURN TO THE EMERGENCY DEPARTMENT FOR ANY WORSENING OF YOUR CONDITION OR QUESTIONS OR CONCERNS. - Billing Disposition and Condition Condition: STABLE Disposition: HOME The documentation as recorded by the Ángel lima Julia accurately reflects the service I personally performed and the decisions made by me, Italo Delaney MD.
== END 2017-09-30 15:36 | disposition home or self-care (01) ==
LOC: ED 11:12
DX: R10.13 Epigastric pain (principal); R06.02 Shortness of breath; R07.9 Chest pain, unspecified; R11.0 Nausea; F17.210 Nicotine dependence, cigarettes, uncomplicated
CPT/HCPCS: 36415; 71045; 71250; 74176; 76705; 80053; 82550; 82553; 83605; 83690; 83880; 84443; 84484; 85025; 85379; 85610; 85730; 86140; 93005; 99283; J2270; J2405

== ENCOUNTER 2017-10-01 01:15 | Emergency (ER) | payer BC ==
[2017-10-01] MEDS ORDERED: Lidocaine 2% VISCOUS* 15 ML UDC PO ONE (01:44)
[2017-10-01] MEDS ORDERED: Al Hydrox/Mg Hydrox/Simet LIQ* 30 ML UDC PO ONE (01:44)
[2017-10-01] MEDS ORDERED: LORazepam TAB(*) 1 MG PO ONE (01:45)
--- NOTE | 2017-10-01 01:51 | ED ---
Complex/Multi-Sys Presentation - HPI Summary HPI Summary: 52-year-old female presents with acute on chronic chest/abdominal pain for the past couple hours. She states she has a history of episodes of such. She states episodes have been going on for the past year but in the past 3 days the episodes have gotten worst. she states the pain waxes and wanes. she states when it gets really bad she states he whole body tenses up. she denies any palpitations. she denies any shortness breath. she states nothing works for the pain. she has history of acid reflux. she had normal stress test in July. she had a full workup done 6 hours ago including a normal ct ultrasound, gallbladder which showed cholelithosis. she had 2 negative troponin at that time. she states that the morphine helped a little bit but when she went back home the pain returned. she states she sees dr. Kumar and has an appointment on the . she has states she is to see gi on October 22. she cannot articulate where the pain starts from. It is from her midabdomen radiates all the way up to her throat and then into her axilla. she denies any injury. she denies any fevers. denies any pain with urination. She denies any flank pain. She is a history of connective tissue disorder. She also has history of high blood pressure. - History Of Current Complaint Chief Complaint: EDGeneral Time Seen by Provider: 10/01/17 01:28 - Allergies/Home Medications Allergies/Adverse Reactions: Allergies Allergy/AdvReac Type Severity Reaction Status Date / Time duloxetine Allergy Severe See Comment Verified 07/21/17 00:12 Penicillins Allergy Severe Anaphylatic Verified 07/21/17 00:13 Shock hydroxychloroquine Allergy Blisters Verified 07/21/17 00:12 [From Plaquenil] prednisone Allergy Unknown Verified 07/21/17 00:[address] DYE Allergy Severe Anaphylatic Uncoded 07/20/17 23:06 Shock PMH/Surg Hx/FS Hx/Imm Hx Endocrine/Hematology History: Reports: Other Endocrine/Hematological Disorders - Connective tissue disorder Denies: Hx Anticoagulant Therapy Cardiovascular History: Reports: Hx Angina, Hx Atrial Fibrillation, Hx Hypercholesterolemia, Hx Hypertension Denies: Hx Deep Vein Thrombosis, Hx Myocardial Infarction Respiratory History: Reports: Hx Asthma GI History: Reports: Hx Gastroesophageal Reflux Disease Musculoskeletal History: Denies: Hx Osteoporosis Sensory History: Denies: Hx Contacts or Glasses, Hx Hearing Aid Opthamlomology History: Denies: Hx Contacts or Glasses - Cancer History Cancer Type, Location and Year: Cervical Cancer - Surgical History Surgery Procedure, Year, and Place: Hysterectomy Infectious Disease History: No Infectious Disease History: Denies: Traveled Outside the [place] in Last 30 Days - Family History Known Family History: Positive: Cardiac Disease, Other - mother with [place] age 62 - Social History Alcohol Use: Occasionally Hx Substance Use: No Substance Use Type: Reports: None Hx Tobacco Use: Yes Smoking Status (MU): Current Every Day Smoker Type: Cigarettes Amount Used/How Often: PPD Review of Systems Negative: Fever Positive: Chest Pain Negative: Shortness Of Breath, Cough Positive: Abdominal Pain. Negative: Nausea All Other Systems Reviewed And Are Negative: Yes Physical Exam Triage Information Reviewed: Yes Vital Signs On Initial Exam: Initial Vitals Temp Pulse Resp BP Pulse Ox 98 F 96 18 173/102 97 10/01/17 01:27 10/01/17 01:27 10/01/17 01:27 10/01/17 01:27 10/01/17 01:27 Vital Signs Reviewed: Yes Appearance: Positive: Well-Appearing Skin: Positive: Warm, Dry Head/Face: Positive: Normal Head/Face Inspection Eyes: Positive: Normal, Conjunctiva Clear ENT: Positive: Pharynx normal Respiratory/Lung Sounds: Positive: Clear to Auscultation, Breath Sounds Present , Other - reproducible chest wall pain Cardiovascular: Positive: Normal, RRR Abdomen Description: Positive: Soft, Other: - mild RUQ tenderness Bowel Sounds: Positive: Present Musculoskeletal: Positive: Normal Neurological: Positive: Normal Psychiatric: Positive: Normal Diagnostics - Vital Signs Vital Signs Temp Pulse Resp BP Pulse Ox 10/01/17 01:27 98 F 96 18 173/102 97 - Laboratory Result Diagrams: 10/01/17 01:52 10/01/17 01:52 Lab Statement: Any lab studies that have been ordered have been reviewed, and results considered in the medical decision making process. - EKG No standard instances Cardiac Rate: NL EKG Rhythm: Sinus Rhythm EKG Interpretation: sinus rhythm EKG Comparison: No Significant Change Re-Evaluation - Re-Evaluation First Eval Re-Evaluation Time: 02:42 Change: Improved Comment: feeling better after GI cocktail and ativan. requesting discharge with such Complex Multi-Symp Course/Dx Course Of Treatment: 52-year-old female presents with acute on chronic chest/ abdominal pain for the past couple hours. She states she has a history of episodes of such. She states episodes have been going on for the past year but in the past 3 days the episodes have gotten worst. she states the pain waxes and wanes. she states when it gets really bad she states he whole body tenses up. she denies any palpitations. she denies any shortness breath. she states nothing works for the pain. she has history of acid reflux. she had normal stress test in July. she had a full workup done 6 hours ago including a normal ct ultrasound, gallbladder which showed cholelithosis. she had 2 negative troponin at that time. she states that the morphine helped a little bit but when she went back home the pain returned. she states she sees dr. Kumar and has an appointment on the . she has states she is to see gi on October 22. she cannot articulate where the pain starts from. It is from her midabdomen radiates all the way up to her throat and then into her axilla. she denies any injury. she denies any fevers. denies any pain with urination. She denies any flank pain. She is a history of connective tissue disorder. She also has history of high blood pressure. On exam his reproducible chest pain. He is tender in epigastric and right upper quadrant. With 2 negative troponins and normal CT a couple hours prior will get Repeat labs to make sure nothing has changed. EKG similar to previous. Will try Ativan and GI cocktail. wbc normal. troponin normal which would be 6 hours trop. pt requesting discharge with ativan and gi cocktail. told to follow up with GI. patient understand and agrees with plan. - Diagnoses Differential Diagnoses/HQI/PQRI: Cardiac Ischemia, Sepsis Provider Diagnoses: Chest pain, Epigastric pain Discharge - Sign-Out/Discharge Documenting (check all that apply): Discharge/Admit/Transfer - Discharge Plan Condition: Good Disposition: HOME Prescriptions: Al Hydrox/Mg Hydrox/Simet LIQ* [Maalox Plus*] 30 ml PO Q4H PRN #1 bottle PRN Reason: Dyspepsia Lidocaine 2% VISCOUS* [Xylocaine 2% Viscous*] 15 ml PO Q4H PRN #1 btl PRN Reason: Dyspepsia LORazepam TAB(*) [Ativan 1 MG TAB (*)] 1 mg PO Q8H PRN #12 tab MDD 3 PRN Reason: Pain - Severe Omeprazole CAP* [Prilosec CAP* 20 MG] 20 mg PO BID #40 cap. Patient Education Materials: Epigastric Pain (ED) Referrals: Jono COLLINS,Gucci Florez [Primary Care Provider] - Additional Instructions: take omeprazole twice a day Try maalox 30ml plus lidocaine 15ml every 4 hours as needed for epigastric pain Use ativan 1 tablet every 8 hours for severe pain avoid fatty foods as cause gallbladder to contract Follow up with primary within 5 days, follow up with GI Return to ED if develop any new or worsening symptoms - Billing Disposition and Condition Condition: GOOD Disposition: HOME
[2017-10-01 02:05] LABS: ABS Basophils 0.1 10^3/ul (0-0.2); ABS Eosinophils 0.2 10^3/ul (0-0.6); ABS Lymphocytes 2.2 10^3/ul (1.0-4.8); ABS Monocytes 0.7 10^3/ul (0-0.8); ABS Neutrophils 6.6 10^3/ul (1.5-7.7); ABS Nucleated RBC 0 10^3/ul; Hematocrit 39 % (35-47); Lymphocyte % 22.7 % (25-47); Mean Corpuscular HGB Conc 33 g/dl (31-36); Mean Corpuscular Hemoglobin 31 pg (27-31); Mean Corpuscular Volume 93 fL (80-97); Mean Platelet Volume 7.3 um3 (7.4-10.4); Nucleated Red Blood Cells % 0; Platelet Count 335 10^3/ul (150-450); Red Blood Count 4.23 10^6/ul (4.0-5.4); Red Cell Distribution Width 14 % (10.5-15); White Blood Count 9.8 10^3/ul (3.5-10.8)
[2017-10-01 02:31] VITALS: BP 153/92
== END 2017-10-01 02:46 | disposition home or self-care (01) ==
LOC: ED 01:15
DX: R07.9 Chest pain, unspecified (principal); R10.13 Epigastric pain; F17.210 Nicotine dependence, cigarettes, uncomplicated
CPT/HCPCS: 36415; 80053; 84484; 85025; 86140; 99283; A9270-GY

== ENCOUNTER 2017-10-12 19:53 | Emergency (ER) | payer BC ==
[2017-10-12] MEDS ORDERED: Ketorolac INJ* 15 MG/ML 1 ML VIAL IV PUSH ONE (20:20)
[2017-10-12 21:12] LABS: ABS Basophils 0.2 10^3/ul (0-0.2); ABS Eosinophils 0.1 10^3/ul (0-0.6); ABS Lymphocytes 2.8 10^3/ul (1.0-4.8); ABS Monocytes 0.8 10^3/ul (0-0.8); ABS Nucleated RBC 0 10^3/ul; Hematocrit 38 % (35-47); Hemoglobin 12.9 g/dl (12.0-16.0); Lymphocyte % 21.9 % (25-47); Mean Corpuscular HGB Conc 34 g/dl (31-36); Mean Corpuscular Hemoglobin 31 pg (27-31); Mean Corpuscular Volume 91 fL (80-97); Mean Platelet Volume 7.7 um3 (7.4-10.4); Nucleated Red Blood Cells % 0; Platelet Count 372 10^3/ul (150-450); Red Blood Count 4.16 10^6/ul (4.0-5.4); Red Cell Distribution Width 13 % (10.5-15)
[2017-10-12 21:25] LABS: EGFR Non-African American 76.1 (>60)
[2017-10-12 22:54] VITALS: BP 118/76
--- NOTE | 2017-10-13 00:55 | ED ---
Marvin Lane Stephanie, scribed for Justus Lee MD on 10/12/17 at 2031 . Complex/Multi-Sys Presentation - HPI Summary HPI Summary: The pt is a 52 y/o F presenting to the ED with c/o CP, back pain and shoulder pain that began 2 weeks ago. Symptoms include pain with PO intake and weight loss of 10 lbs in 2 weeks. Her pain is aggravated by ambulation, movement and eating. The pt is wearing a nitro patch and states the patch has helped lessen her symptoms. Her pain is constant. She denies N/V, fever, hematuria, dysuria. She described her CP as a sharp stabbing pain and her abd pain as a ripping pain. - History Of Current Complaint Chief Complaint: EDChestPainROMI Time Seen by Provider: 10/12/17 20:26 Hx Obtained From: Patient Onset/Duration: Gradual Onset, Lasting Weeks - 2, Still Present Timing: Constant Severity Currently: Severe Character: Sharp Aggravating Factor(s): eating, movement, ambulation Alleviating Factor(s): nitro patch Associated Signs And Symptoms: Positive: Chest Pain, Abdominal Pain, Other - shoulder pain. Negative: Nausea, Vomiting - Allergies/Home Medications Allergies/Adverse Reactions: Allergies Allergy/AdvReac Type Severity Reaction Status Date / Time duloxetine Allergy Severe See Comment Verified 07/21/17 00:12 Penicillins Allergy Severe Anaphylatic Verified 07/21/17 00:13 Shock hydroxychloroquine Allergy Blisters Verified 07/21/17 00:12 [From Plaquenil] prednisone Allergy Unknown Verified 07/21/17 00:[address] DYE Allergy Severe Anaphylatic Uncoded 07/20/17 23:06 Shock PMH/Surg Hx/FS Hx/Imm Hx Endocrine/Hematology History: Reports: Other Endocrine/Hematological Disorders - Connective tissue disorder Denies: Hx Anticoagulant Therapy Cardiovascular History: Reports: Hx Angina, Hx Atrial Fibrillation, Hx Hypercholesterolemia, Hx Hypertension Denies: Hx Deep Vein Thrombosis, Hx Myocardial Infarction Respiratory History: Reports: Hx Asthma GI History: Reports: Hx Gastroesophageal Reflux Disease Musculoskeletal History: Denies: Hx Osteoporosis Sensory History: Denies: Hx Contacts or Glasses, Hx Hearing Aid Opthamlomology History: Denies: Hx Contacts or Glasses - Cancer History Cancer Type, Location and Year: Cervical Cancer - Surgical History Surgery Procedure, Year, and Place: Hysterectomy Infectious Disease History: No Infectious Disease History: Denies: Traveled Outside the [place] in Last 30 Days - Family History Known Family History: Positive: Cardiac Disease, Other - mother with [place] age 62 - Social History Occupation: Unemployed Lives: With Family Alcohol Use: Occasionally Hx Substance Use: No Substance Use Type: Reports: None Hx Tobacco Use: Yes Smoking Status (MU): Current Every Day Smoker Type: Cigarettes Amount Used/How Often: PPD Review of Systems Positive: Other - weight loss. Negative: Fever Positive: Chest Pain Positive: Abdominal Pain. Negative: Vomiting, Nausea Positive: hematuria. Negative: dysuria Positive: Other - shoulder pain All Other Systems Reviewed And Are Negative: Yes Physical Exam - Summary Physical Exam Summary: Appearance: Well-appearing, Well-nourished, lying in bed comfortably Skin: Warm, dry, no obvious rash Eyes: sclera anicteric, no conjunctiva pallor ENT: mucous membranes moist, pharynx appears normal Neck: Supple, nontender Respiratory: Clear to auscultation, no signs of respiratory distress Cardiovascular: Normal S1, S2. No murmurs. Normal distal pulses in tibial and radial bilaterally, no tenderness on chest wall Abdomen: Soft, tenderness over upper abd, R worse than left, normal active bowel sounds present Musculoskeletal: Normal, Strength/ROM Intact Neurological: A&Ox3, awake and alert, mentation is normal, speech is fluent and appropriate Psychiatric: affect is normal, does not appear depressed, anxious Triage Information Reviewed: Yes Vital Signs On Initial Exam: Initial Vitals Temp Pulse Resp BP Pulse Ox 97.8 F 95 20 116/71 98 10/12/17 19:57 10/12/17 19:57 10/12/17 19:57 10/12/17 19:57 10/12/17 19:57 Vital Signs Reviewed: Yes Appearance: Positive: Well-Appearing Diagnostics - Vital Signs Vital Signs Temp Pulse Resp BP Pulse Ox 10/12/17 19:57 97.8 F 95 20 116/71 98 - Laboratory Result Diagrams: 10/12/17 20:49 10/12/17 20:50 Lab Statement: Any lab studies that have been ordered have been reviewed, and results considered in the medical decision making process. Re-Evaluation - Re-Evaluation First Eval Re-Evaluation Time: 20:28 Change: Unchanged - ED physician discussed possible dx of biliary dyskinesia and plan of discharge/ follow-up. Complex Multi-Symp Course/Dx Assessment/Plan: This is a generally healthy 52 y/o woman with a flare of her chronic abdominal/chest pain. She has undergone many different diagnostic interventions for this, including endoscopy, US (heg gallstones), cardiac nuclear stress tests (neg). The only entity I can think of that would account for her symptoms and normal tests thus far would be biliary dyskinesia. She has not had a CCK HIDA scan, and I explained she should get that test, but that it requires a prep and is not something I can order from the ED. I think it would be reasonable to refer her to a general surgeon with a request to evaluate her for this condition and order that test. - Diagnoses Provider Diagnoses: Biliary dyskinesia Discharge - Sign-Out/Discharge Documenting (check all that apply): Discharge/Admit/Transfer - Discharge Plan Condition: Good Disposition: HOME Patient Education Materials: Biliary Dyskinesia (DC) Referrals: Jono COLLINS,Gucci Florez [Primary Care Provider] - Georgi Rousseau MD [Medical Doctor] - Additional Instructions: I am suspicious that you may have a condition called biliary dyskinesia. This can be a difficult condition to diagnose, and it does not sound as though you have had the relevant test, called a CKK HIDA scan. I would suggest that you consult a general surgeon, who can order this test if felt needed. - Billing Disposition and Condition Condition: GOOD Disposition: HOME The documentation as recorded by the Marvin lima Stephanie accurately reflects the service I personally performed and the decisions made by me, Justus Lee MD.
== END 2017-10-12 22:52 | disposition home or self-care (01) ==
LOC: ED 19:53
DX: K82.8 Other specified diseases of gallbladder (principal); R07.9 Chest pain, unspecified; R10.9 Unspecified abdominal pain; G89.29 Other chronic pain; F17.210 Nicotine dependence, cigarettes, uncomplicated; Z88.0 Allergy status to penicillin; Z88.8 Allergy status to other drugs, medicaments and biological substances; Z91.041 Radiographic dye allergy status
CPT/HCPCS: 36415; 80053; 83690; 85025; 96374; 99282; J1885

== ENCOUNTER 2019-08-23 01:27 | Emergency (ER) | payer BC ==
--- NOTE | 2019-08-23 01:45 | ED ---
HPI Cardiac - HPI Summary HPI Summary: Patient is a 54 y/o F w/ Hx of [place] and cardiac stents x2 in 2018 at [facility] who presents to [facility] via EMS with complaints of a "heart flipping over" sensation. She states that this sensation onset around 2200 . Patient subsequently became diaphoretic, dizzy, and was with N/V. She denies CP, SOB, cough, fever, ear pain and BLE edema. No worsened exercise intolerance noted. She smokes 3/4-1 pack of cigarettes daily. Patient notes that she had chest pain with her [place] in 2018 and states that she has not experienced chest pain at any point this evening. Since her cardiac stents were placed, she states that she has been intermittently experiencing this "heart flipping" sensation. Episodes last a few seconds only. She claims that these episodes appear to occur whenever she does not take her pantoprazole. Dizziness is characterized as a room-spinning sensation and is noted to be aggravated by movement. She states that she has been having a ringing to her left ear intermittently. Patient states that she was diagnosed with vertigo years ago and is not currently taking any medication for this. PMHx of HTN, HLD, connective tissue disorder reported. She takes sulfasalazine, metoprolol, atrovastatin, cardizem, plavix, and baby ASA. No Hx of blood clots noted. PSHx of cholecystectomy also noted. Rare alcohol usage, no substance usage noted. Home medications and allergies are reviewed. - History of Current Complaint Chief Complaint: EDGeneral Stated Complaint: HEART PROBLEM PER EMS Time Seen by Provider: 08/23/19 01:32 Hx Obtained From: Patient Onset/Duration: Started Hours Ago Timing: Intermittent Current Severity: None Pain Intensity: 0 Pain Scale Used: 0-10 Numeric Character: Other: - "heart flipping over" sensation Aggravating Factor(s): Movement - aggravates dizziness Associated Signs and Symptoms: Positive: Dizziness, Diaphoresis, Nausea, Vomiting, Other: - positive - left ear ringing; negative - exercise intolerance , ear pain. Negative: Chest Pain, Shortness of Breath, Swelling, Cough, Productive Cough, Nonproductive Cough, Calf Pain/Swelling, Edema - Allergy/Home Medications Allergies/Adverse Reactions: Allergies Allergy/AdvReac Type Severity Reaction Status Date / Time duloxetine [From Cymbalta] Allergy See Comment Verified 08/23/19 02:22 hydroxychloroquine Allergy Blisters Verified 08/23/19 02:22 [From Plaquenil] Iodinated Contrast Media Allergy Anaphylatic Verified 08/23/19 02:22 Shock Penicillins Allergy Anaphylatic Verified 08/23/19 02:22 Shock Home Medications: Home Medications Clopidogrel TAB* [Plavix TAB*] 75 mg PO DAILY 08/23/19 [History Confirmed ] Meclizine TAB* [Antivert 12.5 TAB*] 25 mg PO TID PRN 5 Days #15 tab 08/23/19 [Rx ] Metoprolol Tartrate TAB* [Lopressor TAB*] 25 mg PO BID 08/23/19 [History Confirmed 08/23/19] Pantoprazole TAB * [Protonix TAB*] 40 mg PO BID 08/23/19 [History Confirmed ] Rosuvastatin Calcium 40 mg PO DAILY 08/23/19 [History Confirmed 08/23/19] dilTIAZem HCl [Diltiazem 12Hr ER] 180 mg PO BID 08/23/19 [History Confirmed ] sulfaSALAzine TAB* [Azulfidine TAB*] 500 mg PO BID 08/23/19 [History Confirmed 08/23/19] PMH/Surg Hx/FS Hx/Imm Hx Endocrine/Hematology History: Denies: Hx Diabetes Cardiovascular History: Reports: Hx Hypercholesterolemia, Hx Hypertension, Hx Myocardial Infarction Denies: Hx Embolism Musculoskeletal History: Reports: Other Musculoskeletal History - CONNECTIVE TISSUE DISORDER - Surgical History Surgery Procedure, Year, and Place: cardiac stents x2, cholecystectomy Infectious Disease History: No Infectious Disease History: Denies: Traveled Outside the [place] in Last 30 Days - Family History Known Family History: Positive: Cardiac Disease - Social History Alcohol Use: Rare Substance Use Type: Reports: None Smoking Status (MU): Current Every Day Smoker Review of Systems Positive: Skin Diaphoresis, Other - Dizziness . Negative: Fever Positive: Other - left ear ringing . Negative: Ear Ache Negative: Chest Pain Negative: Shortness Of Breath, Cough Positive: Vomiting, Nausea Negative: Edema - BLE All Other Systems Reviewed And Are Negative: Yes Physical Exam - Summary Physical Exam Summary: Constitutional: Well-developed, Well-nourished, Alert. (-) Distressed Skin: Warm, Dry HENT: Normocephalic; Atraumatic Eyes: Conjunctiva normal Neck: Musculoskeletal ROM normal neck. (-) JVD, (-) Stridor, (-) Tracheal deviation Cardio: Rhythm regular, rate normal, Heart sounds normal; Intact distal pulses; The pedal pulses are 2+ and symmetric. Radial pulses are 2+ and symmetric. Pulmonary/Chest wall: Effort normal. (-) Respiratory distress, (-) Wheezes, (-) Rales Abd: Soft, (-) tenderness, (-) Distension, (-) Guarding, (-) Rebound Musculoskeletal: (-) Edema Neuro: Alert, Oriented x3 Psych: Mood and affect Normal Triage Information Reviewed: Yes Vital Signs On Initial Exam: Initial Vitals Temp Pulse Resp BP Pulse Ox 97.5 F 85 16 151/78 97 08/23/19 01:28 08/23/19 01:28 08/23/19 01:28 08/23/19 01:28 08/23/19 01:28 Vital Signs Reviewed: Yes Procedures - Sedation Patient Received Moderate/Deep Sedation with Procedure: No Diagnostics - Vital Signs Vital Signs Temp Pulse Resp BP Pulse Ox 08/23/19 01:28 97.5 F 85 16 151/78 97 - Laboratory Result Diagrams: 08/23/19 02:02 08/23/19 02:02 Lab Statement: Any lab studies that have been ordered have been reviewed, and results considered in the medical decision making process. - Radiology CXR Radiology Interpretation Completed By: ED Physician Summary of Radiographic Findings: No acute process, pending official report. - EKG 0132 Cardiac Rate: NL - rate of 81 BPM EKG Rhythm: Sinus Rhythm EKG Comparison: No Significant Change - compared to EKG done 10/01/2017 Summary of EKG Findings: EKG showed NSR with rate of 81 BPM, sub-millimeter ST depression in inferior leads, no significant change compared to EKG done 2017. ED physician has reviewed and interpreted this EKG. Re-Evaluation - Re-Evaluation First Eval Re-Evaluation Time: 03:28 Comment: 0328 - Results of workup were discussed with the patient. Patient states that, after thinking for some time, she believes that her presentation tonight was similar to her previous episodes of vertigo. Patient was prescribed meclizine and dischaged to home with PCP followup, patient notes that she already has an appointment scheduled for this week. Disposition - Course Course Of Treatment: Patient is a 54 y/o F w/ Hx of [place] and cardiac stents x2 in 2018 at [facility] who presents to [facility] via EMS with complaints of a "heart flipping over" sensation. She states that this sensation onset around 2200 08/22/19. Patient subsequently became diaphoretic, dizzy, and was with N/V. She denies CP, SOB, cough, fever, ear pain and BLE edema. No worsened exercise intolerance noted. She smokes 3/4-1 pack of cigarettes daily. Patient notes that she had chest pain with her [place] in 2018 and states that she has not experienced chest pain at any point this evening. Since her cardiac stents were placed, she states that she has been intermittently experiencing this "heart flipping" sensation. Episodes last a few seconds only. She claims that these episodes appear to occur whenever she does not take her pantoprazole. Dizziness is characterized as a room-spinning sensation and is noted to be aggravated by movement. She states that she has been having a ringing to her left ear intermittently. Patient states that she was diagnosed with vertigo years ago and is not currently taking any medication for this. PMHx of HTN, HLD, connective tissue disorder reported. She takes sulfasalazine, metoprolol, atrovastatin, cardizem, plavix, and baby ASA. No Hx of blood clots noted. On physical exam, patient is with good pulses, normal S1 and S2, lungs are clear to auscultation, no wheezing noted, no calf tenderness or swelling, no focal abdominal tenderness. EKG showed NSR with rate of 81 BPM, sub-millimeter ST depression in inferior leads, no significant change compared to EKG done 2017. CXR showed no acute process. Bloodwork was obtained. Trop was negative. Abnormal values include WBC 11.1, MPV 7.1, absolute neuts 9.2, BUN/creatinine ratio 20.6, glucose 157, indirect bilirubin 0.2, AST 49, ALT 73, alk phos 126. During ED course, patient received Zofran 4 mg IV, Lactated Ringers 1 L IV, Pepcid 20 mg IV, ASA 162 mg PO. 0328 - Results of workup were discussed with the patient. Patient states that, after thinking for some time, she believes that her presentation tonight was similar to her previous episodes of vertigo. Patient was prescribed meclizine and dischaged to home with PCP followup, patient notes that she already has an appointment scheduled for this week. - Diagnoses Provider Diagnoses: Dizziness Discharge ED - Sign-Out/Discharge Documenting (check all that apply): Patient Departure - discharge - Discharge Plan Condition: Stable Disposition: HOME Prescriptions: Meclizine TAB* [Antivert 12.5 TAB*] 25 mg PO TID PRN 5 Days #15 tab PRN Reason: Dizziness Patient Education Materials: Dizziness (ED) Referrals: Jono COLLINS,Gucci Florez [Primary Care Provider] - 3 Days Additional Instructions: PLEASE RETURN TO ED FOR ANY NEW OR CONCERNING SYMPTOMS. PLEASE FOLLOWUP WITH YOUR PRIMARY CARE PHYSICIAN WITHIN THREE DAYS. - Billing Disposition and Condition Condition: STABLE Disposition: Home - Attestation Statements Document Initiated by Jenniferibe: Yes Documenting Scribe: IZZY GASTELUM Provider For Whom Scribe is Documenting (Include Credential): GIO ARREGUIN MD Scribe Attestation: IIZZY, scribed for GIO ARREGUIN MD on 08/23/19 at 0433. Scribe Documentation Reviewed: Yes Provider Attestation: The documentation as recorded by the IZZY lima accurately reflects the service I personally performed and the decisions made by , GIO ARREGUIN MD Status of Scribe Document: Viewed
[2019-08-23] MEDS ORDERED: Ondansetron INJ* 2 MG/ML VIAL IV ONE (01:49)
[2019-08-23] MEDS ORDERED: Aspirin 81 mg CHEW TAB* 81 MG TAB.CHEW PO ONE (01:49)
[2019-08-23] MEDS ORDERED: Lactated Ringers 1000 ML Bag* 1,000 ML IV ONE (01:49)
[2019-08-23] MEDS ORDERED: Famotidine IV* 10 MG/ML 2 ML (20 mg) IV SLOW PU ONE (01:49)
[2019-08-23 02:09] LABS: ABS Basophils 0.1 10^3/ul (0-0.2); ABS Eosinophils 0.1 10^3/ul (0-0.6); ABS Lymphocytes 1.1 10^3/ul (1.0-4.8); ABS Monocytes 0.6 10^3/ul (0-0.8); ABS Neutrophils 9.2 10^3/ul (1.5-7.7); Eosinophil % 0.5 %; Hematocrit 38 % (35-47); Hemoglobin 12.6 g/dL (12.0-16.0); Lymphocyte % 10.3 %; Mean Corpuscular HGB Conc 33 g/dL (31-36); Mean Corpuscular Hemoglobin 30 pg (27-31); Mean Corpuscular Volume 91 fL (80-97); Mean Platelet Volume 7.1 fL (7.4-10.4); Platelet Count 278 10^3/uL (150-450); Red Blood Count 4.18 10^6 /uL (3.70-4.87); Red Cell Distribution Width 14 % (10-15); White Blood Count 11.1 10^3/uL (3.5-10.8)
[2019-08-23 02:26] LABS: Albumin 4.3 g/dL (3.2-5.2); Albumin/Globulin Ratio 1.5 (1-3); BUN/Creatinine Ratio 20.6 (8-20); Calcium 9.9 mg/dL (8.6-10.3); EGFR African American 108.7 (>60); EGFR Non-African American 89.8 (>60); Globulin 2.9 g/dL (2-4); Indirect Bilirubin 0.2 mg/dL (0.3-1.0); Magnesium 1.9 mg/dL (1.9-2.7); Potassium 4.5 mmol/L (3.5-5.0); Total Bilirubin 0.3 mg/dL (0.2-1.0); Total Protein 7.2 g/dL (6.4-8.9)
--- OUTSIDE RECORDS SUMMARY | 2019-08-23 02:33 | XMS REPORT | Continuity of Care Document ---
:1965 Author Organization 0001 - [facility] Address [address] [place] [address] Phone Care Team Providers Name Role Phone CASI RICHTER NP Unavailable Unavailable Allergies, Adverse Reactions, Alerts Substance Reaction Status HYDROMORPHONE HCL Chest pain (severe) Active HYDROXYCHLOROQUINE SULFATE Rash Active SALMETEROL XINAFOATE Shakiness Active FLUTICASONE PROPIONATE Shakiness Active DULOXETINE HCL strokes Active Penicillins Anaphylaxis Active Medications Medication Instructions Dosage Effective Status Comments Dates (start - stop) Viibryd 20 mg take 1 tablet by 20 MG - Active tablet oral route every day with food MISCELLANEOUS use twice daily - Active ONE TOUCH ULTRA MINI STRIPS Cardizem CD 180 mg take 1 capsule by 180 MG - Active capsule,extended oral route 2 release times every day Plavix 75 mg tablet take 1 tablet by 75 MG - Active oral route every day rosuvastatin 40 mg take 1 tablet by 40 MG - Active tablet oral route every day metoprolol tartrate take 1 tablet by 25 MG - Active 25 mg tablet oral route 2 times every day albuterol sulfate inhale 3 - Active 2.5 mg/3 mL (0.083 milliliter by %) solution for nebulization nebulization route 4 times every day as needed albuterol sulfate inhale 2 puff by 180 MCG - Active HFA 90 inhalation route mcg/actuation every 4 - 6 hours aerosol inhaler as needed hydroxyzine HCl 25 take 1 tablet by 25 MG - Active mg tablet oral route 3 times every day as needed Nitro-Dur 0.4 mg/hr apply 1 patch by 1.00 patch - Active transdermal 24 hour transdermal route patch every day remove at night for 10-12 hours Protonix 40 mg take 1 tablet by 40 MG - Active tablet,delayed oral route 2 release times every day sulfasalazine 500 take 1 tablet by 500 MG - Active mg tablet oral route 2 times every day after meals MISCELLANEOUS Onetouch ultra - Active dx. R73.9 Mini Strips to check blood sugar 2x per day as needed for sugar control Aspirin 81mg Oral 1T PO Q DAY - Active TABLET Viibryd 20 mg take 1 tablet by 20 MG - No Longer tablet oral route every Active day with food Cardizem CD 180 mg take 1 capsule by 180 MG - No Longer capsule,extended oral route every Active release day rosuvastatin 40 mg take 1 tablet by 40 MG - No Longer tablet oral route every Active day diltiazem ER 180 mg take 1 capsule by 180 MG - No Longer capsule,24 oral route 2 Active hr,extended release times every day Plavix 75 mg tablet take 1 tablet by 75 MG - No Longer oral route every Active day metoprolol tartrate take 1 tablet by 25 MG - No Longer 25 mg tablet oral route 2 Active times every day Viibryd 20 mg take 1 tablet by 20 MG - No Longer tablet oral route every Active day with food MISCELLANEOUS use twice daily - No Longer ONE TOUCH Active ULTRA MINI STRIPS Problems Condition Effective Dates (start - stop) Clinical Status Current moderate episode of major depressive disorder without prior episode Essential (primary) hypertension Hyperlipidemia, unspecified Current moderate episode of major depressive disorder without prior episode Anxiety Encounter for screening for malignant neoplasm of colon Encounter for screening mammogram for malignant neoplasm of breast Hyperlipidemia, unspecified - Essential (primary) hypertension - Hyperglycemia, unspecified - Cough Acute bronchitis, unspecified organism Personal history of nicotine - dependence Tobacco use - Essential (primary) hypertension Hyperlipidemia, unspecified Anxiety Elevated blood sugar Skin lesions History of myocardial infarction Tobacco use - Hyperlipidemia, unspecified - Essential (primary) hypertension - Chest pain due to myocardial ischemia, unspecified ischemic chest pain type Essential (primary) hypertension Hyperlipidemia, unspecified Tobacco use - Epigastric abdominal pain Insomnia, unspecified type Calculus of gallbladder without cholecystitis without obstruction Esophageal pain Epigastric abdominal pain Breast mass in female Chest pain, unspecified type Gastro-esophageal reflux disease without esophagitis Depression, unspecified depression type Pain of both hip joints Pain in left hip Acute pain of left shoulder Other malaise AbFnd, immunologil NOS - Systemic lupus erythematosus - Hyperlipidemia NEC/NOS - Hyperlipidemia, unspecified Essential (primary) hypertension Systemic lupus erythematosus, organ or system involvement unspecified Other chest pain Other malaise Hyperlipidemia, unspecified Vitamin D deficiency, unspecified Systemic lupus erythematosus, organ or system involvement unspecified Other chest pain Panic attack UTI (urinary tract infection) due to Enterococcus Enterococcus as the cause of diseases classified elsewhere Systemic lupus erythematosus, organ or system involvement unspecified Systemic lupus erythematosus AbFnd, immunologil NOS Fatigue Hyperlipidemia Hypovitaminosis D Myalgia/myositis NOS Systemic lupus erythematosus Chest pain Systemic lupus erythematosus Hyperlipidemia Systemic lupus erythematosus Palpitations - Tachycardia Chest pain Chest pain Chest pain Sinusitis Asthma NOS w/o status asthmaticus Hyperlipidemia Hypovitaminosis D Systemic lupus erythematosus Headache Routine Medical Exam Bronchitis Systemic lupus erythematosus - Pain, abdominal, generalized Lateral epicondylitis Systemic lupus erythematosus Pain, abdominal, generalized Right elbow pain Systemic lupus erythematosus Systemic lupus erythematosus Systemic lupus erythematosus - Systemic lupus erythematosus GERD Systemic lupus erythematosus - GERD - GERD GERD - Upper Respiratory Infection, Acute Upper Respiratory Infection, Acute - Upper Respiratory Infection, Acute Upper Respiratory Infection, Acute - Systemic lupus erythematosus Systemic lupus erythematosus - Systemic lupus erythematosus Prednisone adverse reaction Systemic lupus erythematosus - Adverse effect, cortical steroid - Systemic lupus erythematosus - AbFnd, immunologil NOS - Pain in joint, unspecified site GERD Pain in joint, unspecified site - GERD - Joint pain Pain in joint, unspecified site - Fatigue Fatigue / Malaise - Chronic joint pain Pain in joint, unspecified site - Pain, upper back Pain, abdominal, generalized Neop, UB, liver/biliary passages Hypertension, Benign Examination, routine medical - Asthma NOS w/o status asthmaticus - Headache - Neop, malig, liver, primary Acute Disorder, muscle/ligament NEC Acute Pain, chest NOS Acute Lump or mass in breast Acute Candidiasis, mouth (Thrush) Acute Pain in thoracic spine Acute Infection, up respirat, 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, Acute acute NOS Neuritis, lumbosacral NOS Acute Pain, abdominal, generalized Chronic Neop, UB, liver/biliary passages Chronic Disorder, tobacco use Chronic Disorder, depressive NEC Chronic Malaise and fatigue NEC Chronic Hypoglycemia NOS Chronic Myalgia/myositis NOS Poorly controlled Malaise and fatigue NEC 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 33-57 Care [address] [place] [address], [place], [facility]. [place] tel:[phone] [place], [place], 9723[address], tel:[phone] 2019 [facility] VIRGEN MashON, Primary 7 ASHOK. 54 33-[address] [facility], [facility] [address]. [place], tel:[phone], 885258 tel: [phone] 0001 - [facility] Dec-3 [facility], Primary 0-201 CASI. 33-57 Care [address] , [place], [place], Street, [address]. [place] tel:+[phone] [place], [place], 6226[address], [place] tel:[phone] 0001 - [facility] Dec-1 [facility], Primary 1-201 ASHOK. 54 33-57 Care [address] , [facility], [place], [place], [place] [address]. [place], tel:[phone], [place] 956951 tel:[phone] 0001 - [facility] Dec-1 [facility], Primary 0-201 CASI. 33-57 Care 9 [address] , [place], Street, [address]. [place] tel:+[phone] [place], [place], 099335 [address], [place] tel:[phone] 0001 - [facility] Dec-0 [facility]GEN S Inc, Primary 9-201 ASHOK. 54 33-57 Care [address] , [facility], [place], [place], [place] [address]. [place], tel:[phone], [place] 914452 tel:[phone] 0001 - S Dec-0 [facility]MAR [facility], Primary 9-201 [place]. 33-57 Care 9 [address] , [place], Street, [address]. [place] tel:+[phone] [place], [place], 345570 [address], [place] tel:[phone] 0001 - S Dec-0 [facility] S Inc, Primary 5-201 CASI. 33-57 Care 9 [address] , [place], Street, [address]. [place] tel:+[phone] [place], [place], 204248 [address], [place] tel:[phone] 0001 - [facility] Nov-2 [facility], Primary 7-201 ASHOK. 54 33-57 Care [address] , [facility], [place], [place], [place] [address]. [place], tel:[phone], [place] 995080 tel:[phone] 0001 - S Nov-2 VIRGEN S Inc, Primary 6-201 ASHOK. 54 33-[address], [place] Sagastume [facility], [place], [place] [address]. [place], tel:+ [phone], [place] 976266 tel:+ [phone] 0001 - S Sep-2 VALDEMAR S Inc, Primary 0-201 [place]. 33-57 Care [address], [place]ast[place], [place], Street, [address]. [place] tel:+ [place], [place], 962943 [address], [place] tel:+ [phone] 0001 - S Current moderate Sep-1 [facility] Inc, Primary episode of major CASI. 33-57 Care depressive disorder [address] , Byronjade Sagastume without prior [place], [place], episode [address]. [place] tel:+ [place], [place], 996223 [address], [place] tel:+ [phone] 0001 - S Essential (primary) Aug-0 [facility] Inc, Primary hypertensionHyperli CASI. 33-57 Care pidemia, [address] , [place] Sagastume unspecifiedCurrent [place], [place], [place] [address]. [place] major depressive tel:+ [place], disorder without [phone] [phone], [place] prior tel:+[phone] episodeAnxietyEncou [phone] nter for screening for malignant neoplasm of colonEncounter for screening mammogram for malignant neoplasm of breast 0001 - S Hyperlipidemia, Omari-0 [facility] Inc, Primary unspecifiedEssentia 201 CASI. 33-57 Care l (primary) [address], [place] Sagastume hypertensionHypergl [place], [place], ycemia, unspecified [address]. [place] tel:+[phone] [place], [place], 3217[address], [place] tel:[phone] 0001 - S CoughAcute May-0 VALDEMAR S Inc, Primary bronchitis, 7 [place]. 33-57 Care unspecified [address], [place] organismPersonal [place], Street, history of nicotine [address]. [place] dependenceTobacco tel:+ [place], [place], use [phone], [place] tel:+ [phone] 0001 - [facility] Essential (primary) Apr-0 [facility], Primary hypertensionHyperli 4-201 CASI. 33-57 Care pidemia, [address], [place] unspecifiedAnxietyE [place], Street, levated blood [address]. [place] sugarSkin tel:+ [place], [place], lesionsHistory of [phone] [address], [place] myocardial tel:+ infarctionTobacco [phone] use 0001 - [facility] Hyperlipidemia, Mar-2 [facility] Inc, Primary unspecifiedEssentia 9 CASI. 33-57 Care l (primary) [address], [place] hypertension [place], Street, [address]. [place]rav[place] tel:+ [place], [place], 225[address], [place] tel: [phone] 0001 - [facility] Chest pain due to Nov-0 [facility], Primary myocardial 6-201 CASI. 3357 Care ischemia, [address], [place], [place], ischemic chest pain [address]. [place] typeEssential tel:+ [place], [place], (primary) [phone] [address], [place] hypertensionHyperli tel:+ pidemia, [phone] unspecifiedTobacco use 0001 - [facility] Epigastric Marcos-2 [facility], Primary abdominal 2-201 CASI. 33-57 Care painInsomnia, [address], [place] unspecified type [place], Street, [address]. [place] tel:+ [place], [place], 9789[address], [place] tel:+ [phone] 0001 - [facility] Calculus of September-3 [facility], Primary gallbladder without 0-201 CASI. 33-57 Care cholecystitis [address], [place] without obstruction [place], Street, [address]. [place] tel:+ [place], [place], 906152 [address], [place] tel:+ [phone] 0001 - [facility] Esophageal May-0 [facility] S Inc, Primary painEpigastric 9- CASI. 33-57 Care abdominal pain [address], [place], [place], [facility]. [place] tel:[phone] [place], [place], 743947 [address], [place] tel:[phone] 0001 - [facility] Breast mass in Dong- VIRGEN S Inc, Primary femaleChest pain, 2 ASHOK. 54 33-57 Care unspecified type [address] , [place] Sagastume [facility], [place], [place], [place] [address]. [place], tel:[phone], [place] 594000 tel:[phone] 0001 - [facility] Gastro-esophageal Marcos- BIBI S Inc, Primary reflux disease 4 LAURA. 260 33-57 Care without 6 [facility] [place] esophagitisDepressi , [facility], , unspecified [facility] depression type [address]. [place], tel:[phone], [place] 879453 tel:[phone] 0001 - [facility] Pain of both hip May-1 [employer] [employer] S Inc, Primary jointsPain in left DANNI. 59 33-57 Care hipAcute pain of [address] , [place] Sagastume left shoulderOther [facility], [place], malaise [place], [place] [address]. [place], tel:[phone], [place] 749043 tel:[phone] 0001 - [facility] AbFnd, immunologil September- [employer] [employer] Inc, Primary NOSSystemic lupus DANNI. 59 33-57 Care erythematosusHyperl [address] , [place]astume ipidemia NEC/NOS [facility], [place], [place], [place] [address]. [place], tel:[phone], [place] 378083 tel:[phone] 0001 - [facility] Hyperlipidemia, Mar-0 GLOSENGER S Inc, Primary unspecifiedEssentia DANNI. 59 33-57 Care l (primary) [address] , [place] Sagastume hypertensionSystemi [facility], Street, c lupus [place], [place] erythematosus, [address]. [place], organ or system tel:[phone], [place] involvement 295348 tel:[phone] 0001 - S Other chest Mar-0 [facility]GEN [facility], Primary painOther 2-201 ASHOK. 54 33-57 Care malaiseHyperlipidem [address], [place] Sgaastume ia, [facility], Street, unspecifiedVitamin [place], [place] D deficiency, [address]. [place], unspecifiedSystemic tel:[phone], [place] lupus 846269 tel:[phone] erythematosus, [phone] organ or system involvement unspecified 0001 - [facility] Other chest Feb- [facility]O [facility], Primary painPanic attack SHANNON. 116 33-57 Care [address] [place] [address], [place], [place], [address]. [place] tel:+[phone] [place], [place], 944906 [address], [place] tel:[phone] 0001 - S UTI (urinary tract Dec-0 GLOSENGER [employer] Inc, Primary infection) due to DANNI. 59 33-57 Care EnterococcusEnteroc [address], [place] Sagastume occus as the cause [facility], [place], of diseases [place], [place] classified [address]. [place], elsewhere tel:[phone], [place] 477055 tel:[phone] 0001 - S Systemic lupus Nov-1 GLOSENGER [employer] Inc, Primary erythematosus, 2-201 DANNI. 59 33-57 Care organ or system [address], [place] involvement [facility], Street, unspecified [place], [place] [address]. [place], tel:[phone], [place] 066857 tel:[phone] 0001 - S Systemic lupus Aug-1 GLOSENGER [employer], Primary erythematosus 2-201 DANNI. 59 33-[address], [place] [facility], Street, [place], [place] [address]. [place], tel:[phone], [place] 003631 tel:[phone] 0001 - S AbFnd, immunologil Nov-3 GLOSENGER S Inc, Primary NOSFatigueHyperlipi 1-201 DANNI. 59 33-57 Care demiaHypovitaminosi [address], [facility] s DMyalgia/myositis [facility], [place], NOSSystemic lupus [place], [place] erythematosus [address]. [place], tel:[phone], [place] 891868 tel:[phone] 0001 - S Chest pain Dec-1 GLOSENGER Referring [employer], Primary 5-201 DANNI. 59 Provider: 33-57 Care [address] , DANNI [facility], GLOSENGER, [place], [place], [address] [facility] [address]. [facility], [place], tel:[phone] [facility] [address], [place] 179201 [place], [address]. tel:+[phone] tel:[phone] 0001 - S Systemic lupus Dec-0 GLOSENGER S Inc, Primary erythematosusHyperl 1-201 DANNI. 59 33-57 Care ipidemia 4 [facility], [facility], [place], [place], [place] [address]. [place], tel:[phone], [place] 828509 tel:[phone] 0001 - S Systemic lupus Aug-2 GLOSENGER [employer], Primary erythematosus 1-201 DANNI. 59 33-57 Care 4 [facility], [facility], [place], [place] [address]. [place], tel:[phone], [place] 594936 tel:[phone] 0001 - S Palpitations Aug-0 [facility] S Inc, Primary 4-201 . 33-57 Care 4 [place], [address], [place] tel:[phone] 0001 - S TachycardiaChest Aug-0 GLOSENGER [employer] Inc, Primary pain 1-201 DANNI. 59 33-[address] [facility], [place], [place] [address]. [place], tel:[phone], [place] 093984 tel:[phone] 0001 - S Chest pain Marcos-1 GLOSENGER [employer], Primary 9-201 DANNI. 59 33-[address] [place] [address], [place], [place] [address]. [place], tel:[phone], [place] 633118 tel:[phone] 0001 - S Chest painSinusitis Marcos-1 GLOSENGER [employer] [facility], Primary 8-201 DANNI. 59 33-57 Care 4 [facility], [facility], [place], [place] [address]. [place], tel:[phone], [place] 186810 tel:[phone] 0001 - S Asthma NOS w/o Marcos-0 [employer] Inc, Primary status asthmaticus 6-201 DANNI. 59 33-[address], [place], [place] [address]. [place], tel:[phone], [place] 168099 tel:[phone] 0001 - [facility] HyperlipidemiaHypov Mar-3 [employer]OS[employer] Inc, Primary itaminosis D 1-201 DANNI. 59 33-[address], [place], [place] [address]. [place], tel:[phone], [place] 248380 tel:[phone] 0001 - S Systemic lupus Mar-2 GLOSENGER [employer], Primary erythematosusHeadac 7-201 DANNI. 59 33-[address], [place], [place] [address]. [place], tel:[phone], [place] 244936 tel:[phone] 0001 - S BronchitisSystemic Oct-2 GLOSENGER [employer], Primary lupus erythematosus 3-201 DANNI. 59 33-[address], [place], [place] [address]. [place], tel:[phone], [place] 170216 tel:[phone] 0001 - S Pain, abdominal, Sep-0 [facility], Primary generalizedLateral 9-201 DANNI. 59 33-57 Care epicondylitis [address], [facility], [place], [place], [place] [address]. [place], tel:[phone], [place] 998345 tel:[phone] 0001 - S Systemic lupus Aug-2 [facility], Primary erythematosusPain, 8-201 DANNI. 59 33-57 Care abdominal, [address], [facility] generalized [facility], [place], [place] [address]. [place], tel:[phone], [place] 645130 tel:[phone] 0001 - S Right elbow pain Omari-3 [facility]GER [facility], Primary 1-201 DANNI. 59 33-[address], [facility], [place], [place] [address]. [place], tel:[phone], [place] 016940 tel:[phone] 0001 - S Systemic lupus Apr-2 [facility], Primary erythematosusSystem 4-201 DANNI. 59 33-57 Care ic lupus [address], [facility] erythematosusSystem [facility], [place], ic lupus [place], [place] erythematosus [address]. [place], tel:[phone], [place] 960766 tel:[phone] 0001 - S Systemic lupus Oct-0 [facility], Primary erythematosusGERDSy 3-201 DANNI. 59 33-57 Care stemic lupus [address], [facility] erythematosusGERD [facility], [place], [place] [address]. [place], tel:[phone], [place] 872515 tel:[phone] 0001 - S GERDGERD Sep-1 GLOSENGER Referring [facility], Primary 7-201 DANNI. 59 Provider: 33-[address], DANNI [facility], [place], [place], [place], [address] [place] [address]. [facility], [place], tel:[phone] [place], [address], [place] 980[place], [address]. tel:+[phone] tel:[phone] 0001 - S Upper Respiratory Marcos-2 [facility]GER [facility], Primary Infection, 7-201 DANNI. 59 33-57 Care AcuteUpper [address], [facility] Respiratory [facility], Street, Infection, [place], [place] [address]. [place], tel:[phone], [place] 320782 tel:[phone] 0001 - S Marcos-1 [facility]GER [facility], Primary 9-201 DANNI. 59 33-57 Care [address] , [facility], [place], [place] [address]. [place], tel:[phone], [place] 136852 tel:[phone] 0001 - S Upper Respiratory Marcos-1 GLOSENGER Referring [facility] Inc, Primary Infection, 8-201 DANNI. 59 Provider: 33-57 Care Acute[address], DANNI [facility] Respiratory [facility], [place], Street, Infection, Acute [place], [address] [place] [address]. [facility], [place], [place], tel:[phone] [place], [address], [place] 206953 [place], [address]. tel:+160 tel:[phone] 0001 - [facility] Systemic lupus Apr-0 GLOSENGER S Inc, Primary erythematosusSystem 2-201 DANNI. 59 33-57 Care ic lupus [address] , [facility] erythematosus [facility], [place], [place] [address]. [place], tel:[phone], [place] 078386 tel:[phone] 0001 - [facility] Systemic lupus Mar-2 GLOSENGER S Inc, Primary erythematosusPredni 8-201 DANNI. 59 33-57 Care sone adverse [address], [facility] reactionSystemic [facility], Street, lupus [place], [place] erythematosusAdvers [address]. [place], e effect, cortical tel:[phone], [place] steroid 531652 tel:[phone] 0001 - S Systemic lupus Feb-2 VIRGEN S Inc, Primary erythematosusAbFnd, 1-201 ASHOK. 54 33-57 Care immunologil NOS 2 [facility], [facility], [place], [place], [place] [address]. [place], tel:[phone], [place] 312396 tel:[phone] 0001 - [facility] Pain in joint, Dec-1 [facility], Primary unspecified 2-201 DANNI. 59 33-57 Care siteGERDPain in 1 [facility] joint, unspecified [facility], [place], [facility] [place], [place] [address]. [place], tel:[phone], 948919 tel:[phone] 0001 - S Joint painPain in Dec-0 [facility]GER [facility], Primary joint, unspecified 2-201 DANNI. 59 33-[address] [facility], [place], [place], [place] [address]. [place], tel:[phone], [place] 409823 tel:[phone] 0001 - S FatigueFatigue / Nov- [facility]GER [facility], Primary Malaise 8-201 DANNI. 59 33-[address] [facility], [place], [place], [place] [address]. [place], tel:[phone], [place] 373610 tel:[phone] 0001 - [facility] Chronic joint Omari-2 GLOSENGER Referring [facility], Primary painPain in joint, 6-201 DANNI. 59 Provider: 33-57 Care unspecified site 1 [facility], [facility], [facility], [place], [place], [address] [place] [address]. [facility], [place], [place], tel:[phone] [facility] [address], [place] 345885 [place], [address]. tel:+60 tel:[phone] 0001 - S Pain, upper back Apr-2 GLOSENGER Referring [facility] Inc, Primary 5-201 DANNI. 59 Provider: 33-[address], DANNI Sagastume [facility], [place]OS[place], [place], [place], [address] [place] [address]. [facility], [place], tel:[phone] [place], [address], [place] 771714 [place], [address]. tel:+60 tel:[phone] 0001 - [facility] Pain, abdominal, Nov- [facility]GEN S Inc, Primary generalizedNeop, 6-201 ASHOK. 54 33-57 Care UB, liver/biliary [address], [place] Sagastume passagesHypertensio [facility], [place], , [place], [place], [place] [address]. [place], tel:[phone], [place] 597992 tel:[phone] 0001 - [facility] Pain, abdominal, September- [facility] S Inc, Primary generalizedNeop, 4-201 ASHOK. 54 33-57 Care UB, liver/biliary [address], [place] Sagastume passages [facility], [place], [place] [address]. [place], tel:[phone], [place] 142831 tel:[phone] 0001 - S Neop, malig, liver, May-0 LEONCIO S Inc, Primary primary 4-201 ZAID. 54 33-57 Care [address] , [place], [place], [place] [address]. [place] tel:[phone] [place], [place], [id number], [place] tel:[phone] 0001 - [facility] Pain, abdominal, Apr-1 [facility], Primary generalized 6-201 ASHOK. 54 33-[address], Byron Kouts [facility], [place], [place], [place] [address]. [place], tel:[phone], [place] 707111 tel:[phone] 0001 - [facility] Pain, abdominal, Apr-1 [facility], Primary generalizedFatigue 3-201 ASHOK. 54 Provider: 33-57 Care / Malaise [address], ASHOK Matthews [facility], PROMISE Shea, [place], [place], 54 [facility] [address]. [facility], [place], tel:[phone] [place], [phone], [address]886 [place], [address]. tel:+ tel:[phone] 0001 - S late effects of Dec- SKIFF [facility], Primary cerebrovascular 7-200 CONNOR. [facility] 33- Care ds., fluency 9 PC 119 [facility] Byron Hareor disorder , [place], [place], [place] [address]. [place], tel:[phone], [phone] tel:[phone] 0001 - [facility] Disorder, Oct- SKIFF Referring [facility], Primary muscle/ligament NEC 9-200 CONNOR. [facility] Provider: - Care 9 PC 119 [facility] CONNOR [place], [place], PC 119 [place] [address]. [facility], [place], [place], tel:[phone] [place] [phone], [id number] [place], tel:+60 [place], [phone]. [id number] tel:[phone] 0001 - S Myalgia/myositis Omari- VIRGEN [facility], Primary NOSMalaise and 7-200 ASHOK. 54 - Care fatigue NEC [address] , Byron Sagastume [facility], [place], [place], [place] [address]. [place], tel:[phone], [id number] tel:[phone] - S Pain, chest NOS Dec-2 LEONCIO Referring [facility], Primary 3-200 ZAID. 54 Provider: 33- Care 8 [facility] ZAID Byron [facility], [place], [facility], [address]. 54 [facility] tel:[phone] , [place], [place], [address]24[address] [facility] [address], [facility], [address]. tel:+ tel:[phone] 0001 - S Lump or mass in Sep-0 LEONCIO Referring [facility], Primary breastDisorder, 3-200 ZAID. 54 Provider: 33-57 Care tobacco use 8 [facility] [place], [place], [place], [address]. 54 [facility] tel:[phone] , [place], [place], 171069 [place], [address], [facility], [address]. tel:[phone] tel:[phone] - S Candidiasis, mouth Marcos-3 [facility]GEN S Inc, Primary (Thrush) 0-200 ASHOK. 54 33-57 Care 8 [facility], [facility], [place], [place], [place] [address]. [place], tel:[phone], [place] [address] tel:[phone] 0001 - S Disorder, Mar-0 [facility], Primary depressive 6-200 CONNOR. [facility] 33-57 Care NECMalaise and 8 PC 119 [facility] Kouts fatigue [place], [place], [place] [address]. [place], tel:[phone], [phone] tel:[phone] 0001 - S Hypoglycemia NOS Jun-2 [facility], Primary 2-200 CONNOR. [facility] 33-57 Care 8 PC 119 [place], [place], [place] [address]. [place], tel:[phone], [place] 016302 tel:[phone] 0001 - S Pain in thoracic Jun- [facility] Referring S Inc, Primary spineInfection, up 0-200 CONNOR. 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 [facility], [place], tel:[phone] [place] [phone], [id number] [place], tel:[phone] [facility] [phone]. [id number] tel:[phone] 0001 - S Neuritis, [facility], Primary lumbosacral NOS 4-200 CONNOR. [facility] 33-57 Care 6 PC 119 [place], [place], [place] [address]. [place], tel:[phone], [place] 648975 tel:[phone] 0001 - [facility] Examination, Nov-0 [facility] Inc, Primary routine 7-200 ASHOK. 54 33-57 Care medicalAsthma NOS 5 [facility], [facility] w/o status [facility], Street, [facility] [place], [place] [address]. [place], tel:[phone], [phone] tel:[phone] Family History Family Member Diagnosis Age At Onset Unknown Immunizations Vaccine Date Status Comments Influenza, injectable, administered Source: New Immunization quadrivalent, preservative Record free, split virus Td (adult) preservative free administered Source: New Immunization Record Payers Payer name Insurance type Covered green party ID Authorization(s) [facility] [id number] [facility] [id number] [facility] [id number] Lifetime Benefit [id number] Social History Type Description Quantity Date Captured Comments Alcohol Use Details Unknown Caffeine Use Details Unknown Tobacco Use Status Smoking Status Unknown Vital Signs Date / Height Weight BMI Pulse Blood Temperature Respiratory Body Head BMI Time: Rate Pressure Rate Surface Circumference percentile Area Unknown Chief Complaint And Reason For Visit No information Reason For Referral Reason For Referral Unknown Plan Of Care Date Type Action Status Referral Ordered: ordered Mammogram, Screening, Bilateral, 2 Views Each Referral Ordered: ordered Referrals: Dermatology. Evaluate and treat Appointment date/timeframe: 09/27/2018 Referral Referred To: ordered ASHOK MEDRANO MD [address] [facility] [address] [place], [phone] Ordered: Referrals: Surgery. ASHOK MEDRANO MD. Location: [facility] Surgery. Evaluate and treat Appointment date/timeframe: 11/09/2017 Referral Ordered: ordered Surgery (related to Epigastric abdominal pain) Referral Ordered: ordered Referrals: Surgery. Location: [facility]. Evaluate and treat Appointment date/timeframe: 2 Weeks Referral Ordered: ordered BREAST ULTRASOUND, Diagnostic Left Appointment date/timeframe: 06/13/2016 Referral Ordered: ordered Mammogram Digital Diagnostic bilateral Bilateral Appointment date/timeframe: 06/13/2016 Referral Ordered: ordered Xray Pelvis multiple views (min 3 view) Referral Ordered: ordered Xray Shoulder Complete (Must choose side) Left Referral Ordered: ordered Holter Monitor, 24 hr Appointment date/timeframe: 05/29/2014 Referral Ordered: ordered U/S Abdomen complete Appointment date/timeframe: 05/29/2014 Referral Referred To: ordered JONNY CASE [address], [phone] Ordered: JONNY CASE. Cardiology. Appointment date/timeframe: 12/21/2013 Referral Ordered: ordered Echocardiography With Color Flow Appointment date/timeframe: 12/06/2013 Referral Ordered: ordered Holter monitor/24 hrs, complete Appointment date/timeframe: 12/06/2013 Referral Ordered: ordered . Cardiology. Consult and treat. Referral Ordered: ordered Nuclear Scan Myocardial Perfusion Rest and Stress (must specify Treadmilll /patsy Referral Referred To: ordered ashlyn [address] [place] [address], [address] [phone] Ordered: ashlyn. Rheumatology. Consult and treat. Referral Ordered: ordered U/S Abdomen limited (for spec organ, must value organ in site) biliary Appointment date/timeframe: 02/02/2013 Referral Referred To: ordered KYLE OQUENDO [facility] [address] [place], [address] [phone] Ordered: KYLE OQUENDO. Rheumatology. Consult and treat. Appointment date/timeframe: 11/08/2012 Referral Referred To: ordered Dr. Jere vuong Ordered: Dr. Oquendo. Rheumatology. Appointment date/timeframe: 06/06/2011 Referral Ordered: ordered . Physical Therapy. Referral Ordered: ordered Abdomen Ultrasound-Complete Referral Ordered: ordered MRI abdomen w/contrast Appointment date/timeframe: 10/04/2009 Referral Ordered: ordered . Gastroenterology. Consult and treat. Appointment date/timeframe: 10/11/2009 Referral Ordered: ordered Pelvis CT Scan w/Contrast Referral Ordered: ordered CT abdomen w/o cntrst flwd contrast Date Type Problem Goal Intervention Status Start Date Unknown History Of Present Illness Encounter Date Complaint History Of Present Illness No information Functional Status Encounter Date Functional Assessment Cognitive Assessment Unknown Medications Administered Medication Instructions Dosage Effective Dates Status Comments (start - stop) Viibryd 20 mg take 1 tablet by 20 MG - No Longer tablet oral route every Active day with food Instructions Date Instruction Additional Information Stop Sertraline. Start Viibryd 1 tab Related to Current moderate episode once per day. Risks and benefits of of major depressive disorder new medication discussed.has been on without prior episode Cymbalta in the past, reaction noted. Wellbutrin in the past did not work, Sertraline in the past and did not work at higher dose. Custer-Guard Related to Encounter for screening for malignant neoplasm of colon [place] Yearly screening mammogram is Related to Encounter for screening strongly recommended for the mammogram for malignant neoplasm of prevention and early detection of breast breast cancer. Not having your yearly screening mammogram can result in a missed opportunity for early detection of breast cancer Continue with Rosuvastatin at current Related to Hyperlipidemia, dose. Take medications as instructed, unspecified increase exercise as tolerated at least 40 min a day, 3-4 days a week. Recommend diet that emphasizes intake of fruits, vegetables and whole grains; includes low fat dairy, poultry, fish, legumes, nontropical vegetable oils and nuts; and limits intake of sweets, sugar sweetened beverages and red meats. Reduce saturated fats. Recheck lipid panel annually or sooner for medication adjustments. continue with diltiazem at current Related to Essential (primary) dose. Consume a low salt diet with hypertension sodium intake of 1500mg per day, daily exercise of at least 30 minutes per day most days of the week and maintain an ideal body weight. Avoid stimulants such as caffeine, nicotine, and moderate alcohol intake. Goal for blood pressure is less than 140/90. Start sertraline 50mg once per day Related to Current moderate episode of major depressive disorder without prior episode increase hydroxyzine to 25mg 3-4 tabs Related to Anxiety as needed for anxiety attacks. please call if any concerns Risks and benefits of new medications Related to Acute bronchitis , discussed.Maintain adequate hydration unspecified organism and rest. Saline nasal spray for nasal congestion and nasal symptoms. Should use Tylenol/Motrin for fever or body aches. Warm moist air may help with relief of irritation and cough. May use Darrell's vapor rub as needed. If no improvement with humidified air, may try cool air.Call or go to emergency department/walk in for worsening symptoms such as fever >101.5, shortness of breath, difficulty breathing, or worsening of current symptoms. Complete lab work Eat foods that have Related to Elevated blood sugar healthy fats such as nuts, olive oil, fish oils, and avocados. Fresh fruits and vegetables, whole fruit rather than juices. High fiber cereals and breads that are made from whole grains or legumes. Fish, chicken or turkey. High quality protein such as eggs, beans, low fat dairy and unsweetened yogurt.Eat less trans fat. deep fried foods, packaged and processed foods. Avoid foods that are high sugar such as baked goods, and candy. Avoid white bread, refined pastas or rice. Avoid starchy vegetables such as potatoes and corn. Limit processed meat and red meat. Patient is following with Cardiology Related to History of myocardial in regards to past NM, needs to have infarction more stents placed when stenosis gets to 70%, she is at 69%. Continue with Rosuvastatin at current Related to Hyperlipidemia, dose, Take medications as instructed, unspecified increase exercise as tolerated at least 40 min a day, 3-4 days a week. Recommend diet that emphasizes intake of fruits, vegetables and whole grains; includes low fat dairy, poultry, fish, legumes, nontropical vegetable oils and nuts; and limits intake of sweets, sugar sweetened beverages and red meats. Reduce saturated fats. Recheck lipid panel annually or sooner for medication adjustments. Start Hydroxyzine 25mg as needed for Related to Anxiety anxiety attacks, may take 2 tabs if needed. Risks and benefits of new medication discussed. Patient verbalized understanding Continue with Diltiazem and metoprolol Related to Essential ( primary) at current dose. Consume a low salt hypertension diet with sodium intake of 1500mg per day, daily exercise of at least 30 minutes per day most days of the week and maintain an ideal body weight. Avoid stimulants such as caffeine, nicotine, and moderate alcohol intake. Goal for blood pressure is less than 140/90. referral to dermatology for skin check Related to Skin lesions and rule out skin cancer Continue with diltiazem at current Related to Essential (primary) dose. hypertension Continue with Rosuvastatin at current Related to Hyperlipidemia, dose, complete lab work as directed to unspecified review how medication is working. Belsomra prescribed 10mg once per Related to Insomnia, unspecified night as needed for sleep. I am type choosing belsomra due to the fact that patient needs help getting to sleep and staying asleep. S/p Cholecystectomy, patient is doing Related to Epigastric abdominal well. Recovered well. All chest pain pain and abdominal pain symptoms resolved. I would like to have another surgical Related to Calculus of gallbladder referral and a possible HIDA scan if without cholecystitis without possible. I do believe that this obstruction patient is having symptoms of her gallbladder, as everything else has been worked up and negative. She is unable to do her activities of daily living due to this pain.Offered to try to start Reglan for patient, she does not want to do any more medications, she would like to just get answers on what is going on. She has a large family history of gallbladder disease and believes that these problems are all related to her gallbladder. Surgery referral. Related to Epigastric abdominal pain Reviewed ER paperwork from multiple ER Related to Esophageal pain visit for the same symptoms. Patient has not had any relief with any treatment. She did have an EGD done on Friday October 06, 2017.Sent in Rx for patient to continue with Ativan, Bentyl and Nitro as directed previously. Stop protonix, go back to omeprazole 2 Related to Gastro- esophageal reflux times daily disease without esophagitis Start prozac 20 mg daily, f/u in one Related to Depression, unspecified month depression type Take visteral as needed for anxiety. Related to Panic attack Breathing exercises discussed with you, try them as you feel your anxiety increase. Make sure you eat a healthy diet and 3 meals daily to prevent any dizziness/dehydration. any worsening symptoms, chest pain, SOB, chest pressure, go to ER immediatlyfollow up in [address] Ernst[address] lanzoprazole, also schedule holter Related to Chest pain will do cardiac work up Related to Chest pain keflex Related to Sinusitis
--- OUTSIDE RECORDS SUMMARY | 2019-08-23 02:33 | XMS REPORT | Continuity of Care Document ---
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 33-57 Care 0 [address], [facility]. Pravin tel:[phone] [place], [place], 952234 [address], tel:[phone] [place] [address] Jun- [place] [employer], Primary 7-202 ASHOK. 54 33-57 Care 0 [facility], [place], [place], [place] [address]. [place], tel:[phone], 013001 tel:[phone] 2019 [facility] mymxlog, Primary 0-201 CASI. 33-57 Care 9 54 [place], [place], [place], [address]. Pravin tel:[phone] [place], [place], 327740 [address], tel:[phone] 2019 [facility] mymxlog, Primary 6-201 CASI. 33-57 Care 9 [address], [address]. Pravin tel:[phone] [place], [place], 410848 [address], [place] tel:[phone] 0001 - [facility] Dec-1 TEVIZZ [facility] [employer], Primary 1-201 ASHOK. 54 33-57 Care 9 Main , [facility], [place], [place], [place] [address]. [place], tel:[phone], [place] 640457 tel:[phone] 0001 - S Dec-1 Texere [facility] Inc, Primary 0-201 CASI. 33-57 Care 9 [address] , [place], [place], Street, [address]. Pravin tel:+16069 [place], [place], 701085 [address], [place] tel:[phone] 0001 - [facility] Dec-0 VALDEMAR S Inc, Primary 9-201 [place]. 33-57 Care 9 [address] , [place], [place], Street, [address]. Praivn tel:+[phone] [place], [place], 176829 [address], [place] tel:[phone] 0001 - S Dec-0 Texere S Inc, Primary 5-201 CASI. 33-57 Care 9 [address] , [place], [place], Street, [address]. Pravin tel:+[phone] [place], [place], 983272 [address], [place] tel:[phone] 0001 - S Nov-2 K[employer] Inc, Primary 7-201 ASHOK. 54 33-57 Care 9 Main , [facility], [place], [place], [place] [address]. [place], tel:[phone], [place] 541991 tel:[phone] 0001 - S Nov-2 TEVIZZ [facility] Inc, Primary 6-201 ASHOK. 54 33-57 Care 9 Main , [facility], [place], [place], [place] [address]. [place], tel:[phone], [place] 902972 tel:[phone] 0001 - S Sep-2 VALDEMAR [facility] Inc, Primary 0-201 [place]. 33-57 Care 9 [address] , [place], [place], Street, [address]. Pravin tel:[phone] [place], [place], 561542 [address], [place] tel:+ [phone] 0001 - S Current moderate Sep-1 RISING [facility] Inc, Primary episode of major CASI. 33-57 Care depressive disorder [address], [place] without prior [place], [place], Street, episode [address]. Pravin tel:+ [place], [place], 764757 [address], [place] tel: [phone] 0001 - [facility] Essential (primary) Aug-0 RISING [facility] Inc, Primary hypertensionHyperli CASI. 33-57 Care pidemia, [address], [place] unspecifiedCurrent [place], Street, [place] [address]. [place]rav[place] major depressive tel: [place], disorder without 578739 [address], [place] prior tel: episodeAnxietyEncou [phone] nter for screening for malignant neoplasm of colonEncounter for screening mammogram for malignant neoplasm of breast 0001 - [facility] Hyperlipidemia, Nov-0 RISING [facility] Inc, Primary unspecifiedEssentia CASI. 33-57 Care l (primary) [address], [place] hypertensionHypergl [place], [place], Street, ycemia, unspecified [address]. Pravin tel: [place], [place], 226286 [address], [place] tel: [phone] 2019 - S CoughAcute May-0 VALDEMAR S Inc, Primary bronchitis, [place]. 33-57 Care unspecified [address], [place] organismPersonal [place], [place], Street, history of nicotine [address]. Pravin dependenceTobacco tel:+ [place], use 908603 [address], [place] tel:+ [phone] 0001 - S Essential (primary) Apr-0 RISING [facility] Inc, Primary hypertensionHyperli - CASI. 33-57 Care pidemia, [address], [place] unspecifiedAnxietyE [place], [place], Street, levated blood [address]. Pravin sugarSkin tel:+ [place], [place], lesionsHistory [place] 333487 [address], [place] myocardial tel:[phone] infarctionTobacco [phone] use 0001 - S Hyperlipidemia, Jul- RISING S Inc, Primary unspecifiedEssentia 9-201 CASI. 33-57 Care l (primary) [address], Byron Sagastume hypertension [facility] Street, [address]. Pravin tel:+6076 [place], [place], 499637 [address], [place] tel:+ [phone] 0001 - S Chest pain due to [facility] Inc, Primary myocardial 6-201 CASI. 33-57 Care ischemia, [address], Byron Sagastume unspecified [place], [facility], ischemic chest pain [address]. Pravin typeEssential tel:+6076 [place], (primary) 913668 [address], [place] hypertensionHyperli tel:+ pidemia, [phone] unspecifiedTobacco use 0001 - S Epigastric Oct- [facility] Inc, Primary abdominal 2-201 CASI. 33-57 Care painInsomnia, [address], Byron Hareor unspecified type [facility] Street, [address]. Pravin tel:+6076 [place], [place], 226031 [address], [place] tel:+ [phone] 0001 - S Calculus of [facility] Inc, Primary gallbladder without 0-201 CASI. 33-57 Care cholecystitis [address], Byron Sagastume without obstruction [facility] Street, [address]. Pravin tel:+6076 [place], 075461 [address], [place] tel:+ [phone] 0001 - S Esophageal September-0 [facility] Inc, Primary painEpigastric 9-201 CASI. 33-57 Care abdominal pain [address], Byron Sagastume [facility] Street, [address]. Pravin tel:+6076 [place], [place], 682944 [address], [place] tel:+ [phone] 0001 - S Breast mass in [facility] Inc, Primary femaleChest pain, 2-201 ASHOK. 54 33-57 Care unspecified type [address], [place] Sagastume [facility], [place], [place] [address]. [place], tel:[phone], [place] 217499 tel:[phone] 0001 - S Gastro-esophageal Marcos-2 BIBI BventsS Inc, Primary reflux disease 4-201 LAURA. 260 33-57 Care without 6 [place] Byron [address]ume esophagitisDepressi Dr, [facility], on, unspecified [place], [place] depression type [address]. [place], tel:+16077 [phone], [place] 297292 tel:[phone] 0001 - S Pain of both hip May-1 [employer] Inc, Primary jointsPain in left 8-201 DANNI. 59 33-57 Care hipAcute pain of 6 [facility], Byron Sagastume left shoulderOther [facility] [place], Street, malaise [place], [place] [address]. [place], tel:[phone], [place] 116307 tel:[phone] 0001 - [facility] AbFnd, immunologil September- [employer] Inc, Primary NOSSystemic lupus 1-201 DANNI. 59 33-[address] [facility], Byron Sagastume ipidemia NEC/NOS [facility] [place], Street, [place], [place] [address]. [place], tel:[phone], [place] 439125 tel:[phone] 0001 - [facility] Hyperlipidemia, Mar-0 [employer] Inc, Primary unspecifiedEssentia 9-201 DANNI. 59 33-57 Care l (primary) 6 [facility], Byron Sagastume hypertensionSystemi [facility] [place], Street, c lupus [place], [place] erythematosus, [address]. [place], organ or system tel:+[phone], [place] involvement 369532 tel:+[phone] 0001 - S Other chest Mar-0 VIRGEN BventsS Inc, Primary painOther 2-201 ASHOK. 54 33-57 Care malaiseHyperlipidem [address], Byron Sagastume ia, [facility] [place], Street, unspecifiedVitamin [place], [place] D deficiency, [address]. [place], unspecifiedSystemic tel:[phone], [place] lupus 778491 tel:+[phone] erythematosus, [id number] organ or system involvement unspecified 0001 - S Other chest Feb-2 CALLEO [facility] Inc, Primary painPanic attack HSANNON. 116 33-[address], [place], [place], [address]. Pravin tel:[phone] [place], [place], 047619 [address], [place] tel:[phone] 0001 - S UTI (urinary tract Dec-0 GLOSENGER [facility] Inc, Primary infection) due to DANNI. 59 33-57 Care EnterococcusEnteroc [address], Byron Sagastume occus as the cause [facility] [place], [place], of diseases [place], [place] classified [address]. [place], elsewhere tel:[phone], [place] 035510 tel:[phone] 0001 - S Systemic lupus Nov- GLOSENGER [facility] Inc, Primary erythematosus, DANNI. 59 33-57 Care organ or system [address], Byron Sagastume involvement [facility] [place], [place], unspecified [place], [place] [address]. [place], tel:[phone], [place] 542244 tel:[phone] 0001 - S Systemic lupus Aug-1 GLOSENGER [facility] Inc, Primary erythematosus DANNI. 59 33-[address], Byron Sagastume [facility] [place], Street, [place], [place] [address]. [place], tel:[phone], [place] 573892 tel:[phone] 0001 - S AbFnd, immunologil Nov-3 GLOSENGER [facility] Inc, Primary NOSFatigueHyperlipi - DANNI. 59 33-57 Care demiaHypovitaminosi [address], Byron Sagastume s DMyalgia/myositis [facility] [place], [place], NOSSystemic lupus [place], [place] erythematosus [address]. [place], tel:[phone], [place] 784284 tel:[phone] 0001 - S Chest pain Dec-1 GLOSENGER Referring [facility] Inc, Primary - DANNI. 59 Provider: 33-[address], DANNI [facility], [place], [place], [place], [address] [place] [address]. [facility] [place], [place], tel:[phone] [facility] [address], [place] 909[place], [address]. tel:+160 tel:[phone] 0001 - S Systemic lupus Dec-0 GLOSENGER [facility] Inc, Primary erythematosusHyperl 1-201 DANNI. 59 33-[address] [facility], [facility], [place], [place], [place] [address]. [place], tel:[phone], [place] 820023 tel:[phone] 0001 - S Systemic lupus Aug-2 GLOSENGER S Inc, Primary erythematosus 1-201 DANNI. 59 33-[address] [facility], [facility], [place], [place] [address]. [place], tel:[phone], [place] 037707 tel:[phone] 0001 - S Palpitations Aug-0 [facility] S Inc, Primary 4-201 . 33-57 Care 4 [place], [address], [place] tel:[phone] 0001 - S TachycardiaChest Aug-0 GLOSENGER S Inc, Primary pain 1-201 DANNI. 59 33-[address] [facility], [facility], [place], [place] [address]. [place], tel:[phone], [place] 343262 tel:[phone] 0001 - S Chest pain Marcos-1 GLOSENGER [facility] Inc, Primary 9-201 DANNI. 59 33-[address] [facility], [facility], [place], [place] [address]. [place], tel:[phone], [place] 136954 tel:[phone] 0001 - S Chest painSinusitis Marcos-1 GLOSENGER S Inc, Primary 8-201 DANNI. 59 33-[address] [facility], [facility], [place], [place], [place] [address]. [place], tel:[phone], [place] 620743 tel:[phone] 0001 - S Asthma NOS w/o Marcos-0 GLOSENClearChoice HoldingsS Inc, Primary status asthmaticus 6-201 DANNI. 59 33-[address] [facility], [facility], [place], [place] [address]. [place], tel:[phone], [place] 450386 tel:[phone] 0001 - S HyperlipidemiaHypov Mar-3 GLOSENClearChoice HoldingsS Inc, Primary itaminosis D 1-201 DANNI. 59 33-[address] [facility], [facility], [place], [place] [address]. [place], tel:[phone], [place] 041365 tel:[phone] 0001 - S Systemic lupus Mar-2 [employer]MineOnlineSENClear[employer]S Inc, Primary erythematosusHeadac 7-201 DANNI. 59 33-57 Care [facility] 4 [facility], [facility] Exam [facility] [place], [place], [place] [address]. [place], tel:[phone], [place] 348281 tel:[phone] 0001 - S BronchitisSystemic Oct-2 [employer]EN[employer]S Inc, Primary lupus erythematosus 3-201 DANNI. 59 33-[address] [facility], [facility], [place], [place] [address]. [place], tel:[phone], [place] 784600 tel:[phone] 0001 - S Pain, abdominal, Sep-0 GLOSENGER BventsS Inc, Primary generalizedLateral 9-201 DANNI. 59 33-57 Care epicondylitis 3 [address] , [facility], [place], [place], [place] [address]. [place], tel:[phone], [place] 177763 tel:[phone] 0001 - S Systemic lupus Aug-2 [employer]S Inc, Primary erythematosusPain, 8-201 DANNI. 59 33-57 Care abdominal, 3 Main , [facility] generalized [facility] [place], [place], [place] [address]. [place], tel:[phone], [place] 734659 tel:[phone] 0001 - S Right elbow pain Omari-3 GLOSENGER [facility] Inc, Primary 1-201 DANNI. 59 33-57 Care 3 Main , [facility], [place], [place] [address]. [place], tel:[phone], [place] 860256 tel:[phone] 0001 - S Systemic lupus Apr-2 GLOSENGER [facility] Inc, Primary erythematosusSystem 4-201 DANNI. 59 33-57 Care ic lupus 3 Main , [facility] erythematosusSystem [facility] [place], [place], ic lupus [place], [place] erythematosus [address]. [place], tel:[phone], [place] 259938 tel:[phone] 0001 - S Systemic lupus Oct-0 GLOSENGER [facility] Inc, Primary erythematosusGERDSy 3- DANNI. 59 33-57 Care stemic lupus [address], [facility] erythematosusGERD [facility] [place], [place], [place] [address]. [place], tel:[phone], [place] 801323 tel:[phone] 0001 - S GERDGERD Sep-1 GLOSENGER Referring [facility] Inc, Primary 7 DANNI. 59 Provider: 33-[address], [facility], [place], [place], [place], [address] [place] [address]. [facility] [place], [place], tel:[phone] [place], [address], [place] 017237 [place], [address]. tel:+160 tel:[phone] 0001 - S Upper Respiratory Marcos-2 GLOSENGER [facility] Inc, Primary Infection, DANNI. 59 33-57 Care AcuteUpper [address], [facility] Respiratory [facility] [place], [place], Infection, Acute [place], [place] [address]. [place], tel:[phone], [place] 182951 tel:[phone] 0001 - S Marcos-1 GLOSENGER [facility] Inc, Primary 9-201 DANNI. 59 33-57 Care 2 [address] , Byron [facility], [place], [place], [place] [address]. [place], tel:[phone], [place] 210623 tel:[phone] 0001 - [facility] Upper Respiratory Marcos-1 [place]ENGER Referring [facility] Inc, Primary Infection, 8 DANNI. 59 Provider: 33-57 Care AcuteUpper 2 Main , DANNI [facility] Respiratory [facility] [place], [place], [place], Infection, Acute [place], [address] [place] [address]. [facility] [place], [place], tel:[phone] [place], [address], [place] 277627 [place], [address]. tel:+60 tel:[phone] 0001 - [facility] Systemic lupus Apr-0 GLOSENGER S Inc, Primary erythematosusSystem 2- DANNI. 59 33-57 Care ic lupus 2 [facility] erythematosus [facility] [place], [place], [place] [address]. [place], tel:[phone], [place] 047138 tel:[phone] 0001 - [facility] Systemic lupus Mar-2 GLOSENGER S Inc, Primary erythematosusPredni DANNI. 59 33-57 Care sone adverse 2 [facility] reactionSystemic [facility] [place], [place], lupus [place], [place] erythematosusAdvers [address]. [place], e effect, cortical tel:[phone], [place] steroid 888367 tel:[phone] 0001 - [facility] Systemic lupus Feb-2 VIRGEN S Inc, Primary erythematosusAbFnd, ASHOK. 54 33-[address] NOS 2 [facility], [facility], [place], [place], [place] [address]. [place], tel:[phone], [place] 663311 tel:[phone] 0001 - S Pain in joint, Dec-1 GLOSENGER S Inc, Primary unspecified 2-201 DANNI. 59 33-57 Care siteGERDPain in 1 [facility] joint, unspecified [facility] [place], [place], [facility] [place], [place] [address]. [place], tel:[phone], [place] 570921 tel:[phone] 0001 - [facility] Joint painPain in Dec-0 GLOSENGER [facility] Inc, Primary joint, unspecified 2-201 DANNI. 59 33-[address] [facility] [place], [place], [place] [address]. [place], tel:[phone], [place] 758586 tel:[phone] 0001 - S FatigueFatigue / Nov-1 GLOSENGER [facility] Inc, Primary Malaise 8-201 DANNI. 59 33-[address] [facility] [place], [place], [place] [address]. [place], tel:[phone], 631504 tel:[phone] 0001 - [facility] Chronic joint Omari-2 GLOSENGER Referring [facility] Inc, Primary painPain in joint, 6201 DANNI. 59 Provider: 33-57 Care unspecified [address] [facility] [place], [place], [place], [address] [facility] [address]. [facility] [place], [place], tel:[phone] [place], [address], [place] 618033 [place], [address]. tel:+60 tel:[phone] 0001 - [facility] Pain, upper back Apr-2 [place]OS[place]GER Referring [facility] Inc, Primary 5-201 DANNI. 59 Provider: 33-[address] [facility], [facility], [place], [place], [address] [facility] [address]. [place], [place], tel:+16020 [place], [address], [place] 066805 [place], [address]. tel:+60 tel:[phone] 0001 - [facility] Pain, abdominal, Nov-1 VIRGEN [facility] Inc, Primary generalizedNeop, 6-201 ASHOK. 54 33-57 Care UB, liver/biliary 0 Main Byron [place] passagesHypertensio [facility] [place], [place], n, Benign [place], [place] [address]. [place], tel:[phone], [place] 843068 tel:[phone] 0001 - [facility] Pain, abdominal, May-1 VIRGEN S Inc, Primary generalizedNeop, 4-201 ASHOK. 54 33-57 Care UB, liver/biliary 0 [address] , [place] passages [facility] [place], [place], [place] [address]. [place], tel:[phone], [place] 039147 tel:[phone] 0001 - [facility] Neop, malig, liver, May-0 LEONCIO S Inc, Primary primary 4-201 ZAID. 54 33-57 Care 0 Main , [place], [place], [place], [facility]. [place] tel:[phone] [place], [place], 656460 [address], [place] tel:[phone] 0001 - S Pain, abdominal, Apr-1 VIRGEN S Inc, Primary generalized 6-201 ASHOK. 54 33-57 Care 0 Main , Byron [facility], [place], [place] [address]. [place], tel:[phone] 14985, [place] 211260 tel:[phone] 0001 - [facility] Pain, abdominal, Apr-1 VIRGEN Referring S Inc, Primary generalizedFatigue 3-201 ASHOK. 54 Provider: 33-57 Care / Malaise 0 [facility], [facility], PROMISE F, [place], [place], 54 [facility] [address]. [facility] [place], [place], tel:[phone] [place], [address], [place] 404022 [place], [address]. tel:+60 tel:[phone] 0001 - S late effects of Dec- SKIFF S Inc, Primary cerebrovascular 7-200 CON[place]. [facility] 33-57 Care ds., fluency 9 PC 119 [facility], [place], [place], [place] [address]. [place], tel:[phone] 43079, [place] 191060 tel:[phone] 0001 - S Disorder, Oct- SKIFF Referring S Inc, Primary muscle/ligament NEC 9-200 [place]. [facility] Provider: 33-57 Care 9 PC 119 [facility] CONNOR [facility], [facility], [facility] Street, [place], [place], PC 119 [place] [address]. [facility], [place], tel:+6076 [place] [address], 107033 [place], tel:+60 [place], [address]. 564[address]505 tel:[phone] 0001 - S Myalgia/myositis Omari- [facility] Inc, Primary NOSMalaise and 7-200 ASHOK. 54 33-57 Care fatigue NEC 9 [facility], [place], [place], [place] [address]. [place], tel:[phone], [place] 564470 tel:[phone] 0001 - [facility] Pain, chest NOS Dec-2 [facility] Referring S Inc, Primary 3-200 ZAID. 54 Provider: 33-57 Care 8 [facility] [place], [facility], [address]. 54 [facility] tel:+[phone] [place], [place], 673569 [place], [address], [place], [address]. tel:+ tel:[phone] 0001 - S Lump or mass in Sep-0 [facility], Primary breastDisorder, 3-200 ZAID. 54 Provider: 33-57 Care tobacco use 8 [place], [place], [facility], [address]. [address] P[place] tel:+[phone] , [place], [place], 516210 [place], [address], [facility], [address]. tel:+ tel:[phone] 0001 - S Candidiasis, mouth Marcos-3 [facility] Inc, Primary (Thrush) 0-200 ASHOK. 54 33-57 Care 8 [facility], [place], [place], [place] [address]. [place], tel:[phone], [place] 791394 tel:[phone] 0001 - S Disorder, Jul-0 [facility], Primary depressive 6-200 [place]. [facility] 33-57 Care NECMalaise and 8 PC 119 Laurita Sagastume fatigue NEC , [place], [place], [place] [address]. [place], tel:[phone], [place] 059276 tel:[phone] 0001 - S Hypoglycemia NOS [facility] Inc, Primary 2-200 [place]. [facility] 33-57 Care 8 PC 119 Laurita Sagast[place], [place] [address]. [place], tel:[phone], [place] 461195 tel:[phone] 0001 - S Pain in thoracic [facility] Referring S Inc, Primary spineInfection, up 0-200 [place]. 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 [facility], [place], tel:[phone] [place] [address], 791904 [place], tel:+1-60 [place] [address]. [id number] tel:[phone] 0001 - S Neuritis, [facility] Inc, Primary lumbosacral NOS 4-200 [place]. [facility] 33-57 Care 6 PC 119 [place], [place] [address]. [place], tel:[phone], [place] 208736 tel:[phone] 0001 - [facility] Examination, Nov- VIRGEN S Inc, Primary routine 7-200 ASHOK. 54 33-57 Care medicalAsthma NOS [address] , Byron Sagastume w/o status [facility] [place], [place], [place], [place] [address]. [place], tel:[phone], [place] 560683 tel:[phone] Family History Family Member Diagnosis Age At Onset Unknown Immunizations Vaccine Date Status Comments Influenza, injectable, administered Source: New Immunization quadrivalent, preservative Record free, split virus Td (adult) preservative free administered Source: New Immunization Record Payers Payer name Insurance type Covered republican ID Authorization(s) Manan Lafleur [id number] [facility] Miquel [id number] [facility] Miquel [id number] Lifetime Benefit Miquel [id number] Social History Type Description Quantity Date Captured [...] Referred To: ordered ASHOK MEDRANO MD [address] [facility] [address] [place] [address], [address] [phone] Ordered: Referrals: Surgery. ASHOK MEDRANO MD. Location: [facility] Surgery. Evaluate and treat Appointment date/timeframe: 11/09/2017 Referral Ordered: ordered Surgery (related to Epigastric abdominal pain) Referral Ordered: ordered Referrals: Surgery. Location: [facility]. Evaluate and treat Appointment date/timeframe: 2 Weeks [...] 05/29/2014 Referral Referred To: ordered JONNY CASE [address] [place], [address] [phone] Ordered: JONNY CASE. Cardiology. Appointment date/timeframe: 12/21/2013 Referral Ordered: ordered Echocardiography With Color Flow Appointment date/timeframe: 12/06/2013 Referral Ordered: ordered Holter monitor/24 hrs, complete Appointment date/timeframe: 12/06/2013 Referral Ordered: ordered . Cardiology. Consult and treat. Referral Ordered: ordered Nuclear Scan Myocardial Perfusion Rest and Stress (must specify Treadmilll /patsy Referral Referred To: ordered ashlyn [facility] [place], [address] [phone] Ordered: ashlyn. Rheumatology. Consult and treat. Referral Ordered: ordered U/S Abdomen limited (for spec organ, must value organ in site) biliary Appointment date/timeframe: 02/02/2013 Referral Referred To: [facility] [address] [place], [address] [phone] Ordered: KYLE OQUENDO. Rheumatology. Consult and treat. Appointment date/timeframe: 11/08/2012 Referral Referred To: ordered Dr. Jere Ryan Rheumatology yevgeniy Ordered: Dr. Oquendo. Rheumatology. Appointment date/timeframe: 06/06/2011 [...] and did not work at higher dose. 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
--- OUTSIDE RECORDS SUMMARY | 2019-08-23 02:33 | XMS REPORT | Continuity of Care Document ---
:1965 Author Organization 0001 - [facility] Address [address] [place] [address] Phone Care Team Providers Name Role Phone ASHOK VIRGEN MD Unavailable Unavailable Allergies, Adverse Reactions, Alerts Substance Reaction Status HYDROMORPHONE HCL Chest pain (severe) Active HYDROXYCHLOROQUINE SULFATE Rash Active SALMETEROL XINAFOATE Shakiness Active FLUTICASONE PROPIONATE Shakiness Active DULOXETINE HCL strokes Active Penicillins Anaphylaxis Active Medications Medication Instructions Dosage Effective Status Comments Dates (start - stop) MISCELLANEOUS use twice daily - Active ONE [...] day remove at night for 10-12 hours Viibryd 20 mg take 1 tablet by 20 MG - Active tablet oral route every day with food Protonix 40 mg take 1 tablet by [...] 1T PO Q DAY - Active TABLET MISCELLANEOUS use twice daily - No Longer [...] in thoracic spine Acute 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 54 33-57 Care 0 [facility], [place], [place], [place] [address]. [place], tel:[phone], 002175 tel:[phone] 2019 - [facility] May-3 Graematter, Primary 0201 CASI. 57 Care 9 54 [facility], [facility]. Pravin tel:+[phone] [place], [place], 833650 [address], [place] tel:[phone] 0001 - [facility] May-1 Graematter, Primary 0201 CASI. 57 Care 9 54 [place], [place], [place], [address]. Pravin tel:+[phone] [place], [place], 506672 [address], [place] tel:[phone] 2019 - [facility] May-0 VALDEMAR [employer], Primary 9-201 [place]. 3357 Care 9 54 [facility], [address]. Pravin tel:+16066 [place], [place], 561176 [address], [place] tel:[phone] 0001 - [facility] Dec-0 Graematter, Primary 5201 CASI. 3357 Care 9 54 [place], [place], [place], [address]. Pravin tel:[phone] [place], [place], 252282 [address], [place] tel:[phone] 0001 - [employer] Apr-2 ContentDJ, Primary 7 ASHOK. 54 33-[address] [facility] , Byron Sagastume [facility], Street, [place], [place], [place] [address]. [place], tel:[phone], [place] 364530 tel:[phone] 0001 - S Nov-2 PROMISE S Inc, Primary 6-201 ASHOK. 54 33-57 Care 9 [address] , Byron Sagastume [facility], Street, [place], [place], [place] [address]. [place], tel:[phone], [place] 034970 tel:[phone] 0001 - S Sep-2 VALDEMAR S Inc, Primary 0-201 [place]. 33-57 Care 9 54 [facility], [place], [place], [place], [address]. Pravin tel:+6076 [place], [place], 447568 [address], [place] tel:[phone] 0001 - S Current moderate Sep-1 [facility] Inc, Primary episode of major CASI. 33-57 Care depressive disorder 9 54 [facility], [facility] without prior [place], [place], [place], episode [address]. Pravin tel:+6076 [place], [place], 811558 [address], [place] tel:[phone] 0001 - S Essential (primary) Aug-0 [facility] Inc, Primary hypertensionHyperli CASI. 33-57 Care pidemia, 9 54 [facility] unspecifiedCurrent [place], [place], [place] [address]. [place] major depressive tel:+6076 [place], disorder without [phone] [address], [place] prior tel:+60 episodeAnxietyEncou [phone] nter for screening for malignant neoplasm of colonEncounter for screening mammogram for malignant neoplasm of breast 0001 - S Hyperlipidemia, Omari-0 RISING S Inc, Primary unspecifiedEssentia CASI. 33-57 Care l (primary) 9 54 [facility] hypertensionHypergl [facility], ycemia, unspecified [address]. Pravin tel:+6076 [place], [place], 006105 [address], [place] tel:[phone] 0001 - S CoughAcute September-0 VALDEMAR [facility] Inc, Primary bronchitis, 7 [place]. 33-57 Care unspecified [address], [place] organismPersonal [place], [place], Street, history of nicotine [address]. Pravin dependenceTobacco tel:+76 [place], use 053759 [address], [place] tel:+ [phone] 0001 - S Essential (primary) Apr-0 RISING [facility] Inc, Primary hypertensionHyperli 4-201 CASI. 33-57 Care pidemia, [address], Byron Sagastume unspecifiedAnxietyE [place], [place], Street, levated blood [address]. [place]ravin sugarSkin tel:+ [place], [place], lesionsHistory of [phone] [address], [place] myocardial tel:+ infarctionTobacco [phone] use 2019 - S Hyperlipidemia, Jul- RISING [facility] Inc, Primary unspecifiedEssentia 9 CASI. 33-57 Care l (primary) [address], [place] hypertension [place], [facility] Street, [address]. Pravin tel:+ [place], [place], 345398 [address], [place] tel:+ [phone] 0001 - S Chest pain due to Nov- RISING [facility] Inc, Primary myocardial 6-201 CASI. 33-57 Care ischemia, [address], Byron Hareor unspecified [place], [place], Street, ischemic chest pain [address]. [place]ravin typeEssential tel:+ [place], (primary) [phone] [address], [place] hypertensionHyperli tel:+ pidemia, [phone] unspecifiedTobacco use 0001 - S Epigastric Marcos- RISING [facility] Inc, Primary abdominal 2-201 CASI. 33-57 Care painInsomnia, [address], [place] unspecified type [place], [facility] Street, [address]. Pravin tel:+6076 [place], [place], 412583 [address], [place] tel:+ [phone] 0001 - S Calculus of September-3 RISING [facility] Inc, Primary gallbladder without 0-201 CASI. 33-57 Care cholecystitis [address], [place] without obstruction [facility], [address]. Pravin tel:+16040 [place], [place], 464082 [address], [place] tel:[phone] 0001 - S Esophageal May-0 RISING [employer] Inc, Primary painEpigastric 9-201 CASI. 33-57 Care abdominal pain [address], Byronjade Sagastume [place], [place], [place], [address]. Pravin tel:+[phone] [place], [place], 057337 [address], [place] tel:[phone] 0001 - S Breast mass in Dong- VIRGEN S Inc, Primary femaleChest pain, 2-201 ASHOK. 54 33-57 Care unspecified type [address], Byron Sagastume [facility], [place], [place] [address]. [place], tel:[phone], [place] 723391 tel:[phone] 0001 - S Gastro-esophageal Marcos-2 BIBI S Inc, Primary reflux disease 4-201 LAURA. 260 33-57 Care without 6 [place] Byron Sagastume esophagitisDepressi , [facility], , unspecified [facility] depression type [address]. [place], tel:[phone], [place] 470399 tel:[phone] 0001 - S Pain of both hip September-1 GLOSENAccordS Inc, Primary jointsPain in left 8-201 DANNI. 59 33-57 Care hipAcute pain of [address], [place] Sagastume left shoulderOther [facility], [place], [facility] [place], [place] [address]. [place], tel:[phone], [place] 015776 tel:[phone] 0001 - S AbFnd, immunologil September- GLOSENPharmAkea Therapeutics S Inc, Primary NOSSystemic lupus 1-201 DANNI. 59 33-57 Care erythematosusHyperl [address], Byron Sagasutme ipidemia NEC/NOS [facility], [place], [place] [address]. [place], tel:[phone], [place] 161821 tel:[phone] 0001 - S Hyperlipidemia, Mar-0 GLOSENGER S Inc, Primary unspecifiedEssentia 9- DANNI. 59 33-57 Care l (primary) [address], Byron Sagastume hypertensionSystemi [facility], Street, c lupus [place], [place] erythematosus, [address]. [place], organ or system tel:[phone], [place] involvement 607665 tel:[phone] 0001 - S Other chest Mar-0 VIRGEN S Inc, Primary painOther 2- ASHOK. 54 33-57 Care malaiseHyperlipidem [address], [place] ia, [facility], Street, unspecifiedVitamin [place], [place], [place] D deficiency, [address]. [place], unspecifiedSystemic tel:[phone], [place] lupus 401027 tel:+[phone] erythematosus, [phone] organ or system involvement unspecified 0001 - [facility] Other chest Feb-2 CALLEO [employer] Inc, Primary painPanic attack SHANNON. 116 33-57 Care [address], [place], [place], [address]. Pravin tel:+16077 [place], [place], 349306 [address], [place] tel:[phone] 0001 - [facility] UTI (urinary tract Dec-0 GLOSENAccordS Inc, Primary infection) due to DANNI. 59 33-57 Care EnterococcusEnteroc [address], Byron Sagastume occus as the cause [facility], [place], of diseases [place], [place], [place] classified [address]. [place], elsewhere tel:+[phone], [place] 796928 tel:[phone] 0001 - S Systemic lupus Nov-1 GLOSENGER [employer] Inc, Primary erythematosus, 2-201 DANNI. 59 33-57 Care organ or system [address], [place] involvement [facility], [place], [place], [place] [address]. [place], tel:[phone], [place] 621654 tel:[phone] 0001 - S Systemic lupus Aug-1 GLOSENGER [employer] Inc, Primary erythematosus 2-201 DANNI. 59 33-[address], [place] [facility], [place], [place] [address]. [place], tel:[phone], [place] 467123 tel:[phone] 0001 - S AbFnd, immunologil Omari-3 GLOSENGER [employer] Inc, Primary NOSFatigueHyperlipi 1-201 DANNI. 59 33-57 Care demiaHypovitaminosi [address] , [facility] DMyalgia/myositis [facility], [place], NOSSystemic lupus [place], [place] erythematosus [address]. [place], tel:[phone], [place] 321396 tel:[phone] 0001 - S Chest pain Dec-1 GLOSENGER Referring [facility] Inc, Primary 5-201 DANNI. 59 Provider: 33-57 Care 4 [facility], [facility], [facility], [place], [place], [address] [place] [address]. [facility], [place], tel:[phone] [place] [address], [place] 2467[place], [address]. tel:+160 tel:[phone] 0001 - S Systemic lupus Dec-0 GLOSENGER [employer], Primary erythematosusHyperl 1-201 DANNI. 59 33-57 Care ipidemia 4 [facility], [place], [place], [place] [address]. [place], tel:[phone], [place] 119668 tel:[phone] 0001 - S Systemic lupus Aug-2 GLOSENGER [employer], Primary erythematosus 1-201 DANNI. 59 33-57 Care 4 [facility], [place], [place] [address]. [place], tel:[phone], [place] 201020 tel:[phone] 0001 - S Palpitations Aug-0 [facility] [employer], Primary 4-201 . 33-57 Care 4 [place], [address], [place] tel:[phone] 0001 - S TachycardiaChest Aug-0 GLOSENGER [employer], Primary pain 1-201 DANIN. 59 33-[address], [facility], [place], [place] [address]. [place], tel:[phone], [place] 259524 tel:[phone] 0001 - S Chest pain Marcos-1 GLOSENGER [employer], Primary 9-201 DANNI. 59 33-[address] [place] [address], [facility], [place], [place] [address]. [place], tel:[phone], [place] 354136 tel:[phone] 0001 - S Chest painSinusitis Marcos-1 GLOSENGER [employer], Primary 8-201 DANNI. 59 33-[address], [place], [place], [place] [address]. [place], tel:[phone], [place] 153827 tel:[phone] 0001 - S Asthma NOS w/o Marcos-0 GLOSENGER [employer], Primary status asthmaticus 6-201 DANNI. 59 33-[address], [place], [place] [address]. [place], tel:[phone], [place] 244841 tel:[phone] 0001 - S HyperlipidemiaHypov Mar-3 GLOSENGER [employer], Primary itaminosis D 1-201 DANNI. 59 33-[address], [place], [place] [address]. [place], tel:+[phone], [place] 738611 tel:[phone] 0001 - S Systemic lupus Mar-2 GLOSENGER [employer], Primary erythematosusHeadac 7-201 DANNI. 59 33-[address], [place], [place], [place] [address]. [place], tel:+[phone], [place] 415380 tel:[phone] 0001 - S BronchitisSystemic Oct-2 GLOSENGER [employer], Primary lupus erythematosus 3-201 DANNI. 59 33-57 [address], [place], [place], [place] [address]. [place], tel:[phone], [place] 938359 tel:[phone] 0001 - [facility] Pain, abdominal, Sep-0 GLOSENGER [facility] Inc, Primary generalizedLateral 9-201 DANNI. 59 33-57 Care epicondylitis [address] , [facility], [place], [place], [place] [address]. [place], tel:[phone], [place] 715260 tel:[phone] 0001 - [facility] Systemic lupus Aug-2 GLOSENGER [facility] Inc, Primary erythematosusPain, 8-201 DANNI. 59 33-57 Care abdominal, [address] , [facility], [place], [place] [address]. [place], tel:[phone], [place] 084386 tel:[phone] 0001 - [facility] Right elbow pain Omari-3 GLOSENGER [facility] Inc, Primary 1-201 DANNI. 59 33-[address], [facility], [place], [place] [address]. [place], tel:[phone], [place] 670061 tel:[phone] 0001 - [facility] Systemic lupus Apr-2 GLOSENGER [facility] Inc, Primary erythematosusSystem 4-201 DANNI. 59 33-57 Care ic lupus [address] , [facility] erythematosusSystem [facility], [place], ic lupus [place], [place] erythematosus [address]. [place], tel:[phone], [place] 801042 tel:[phone] 0001 - [facility] Systemic lupus Oct-0 GLOSENGER [facility] Inc, Primary erythematosusGERDSy 3-201 DANNI. 59 33-57 Care stemic lupus [address] , [facility] erythematosusCOBALT RE[facility]ATION [facility]ITAL[facility], [place], [place] [address]. [place], tel:[phone], [place] 445485 tel:[phone] 0001 - [facility] GERDGERD Sep-1 GLOSENGER Referring [facility] Inc, Primary 7-201 DANNI. 59 Provider: 33-[address], DANNI Sagastume [facility], GLOSENGER, [place], [address] [place] [address]. [facility], [place], tel:[phone] [place], [address], [place] 758704 [place], [address]. tel:+160 tel:[phone] 0001 - S Upper Respiratory Marcos-2 GLOSENGER [facility] Inc, Primary Infection, 7-201 DANNI. 59 33-57 Care AcuteUpper [address], Byron Sagastume Respiratory [facility], Street, Infection, Acute [place], [place] [address]. [place], tel:[phone], [place] 849748 tel:[phone] 0001 - S Marcos-1 GLOSENGER [facility] Inc, Primary 9-201 DANNI. 59 33-[address], Byron Sagastume [facility], [place], [place] [address]. [place], tel:[phone], [place] 859419 tel:[phone] 0001 - [facility] Upper Respiratory Marcos-1 GLOSENGER Referring [facility] Inc, Primary Infection, 8-201 DANNI. 59 Provider: 33-57 Care AcuteUpper [address], DANNI Sagastume Respiratory [facility], GLOSENGER, [place], Infection, Acute [place], [address] [place] [address]. [facility], [place], [place], tel:[phone] [place], [address], [place] 934933 [place], [address]. tel:+60 tel:[phone] 0001 - S Systemic lupus Apr-0 GLOSENGER [facility] Inc, Primary erythematosusSystem 2-201 DANNI. 59 33-57 Care ic lupus [address], Byron Sagastume erythematosus [facility], [place], [place] [address]. [place], tel:[phone], [place] 977154 tel:[phone] 0001 - S Systemic lupus Mar-2 GLOSENGER S Inc, Primary erythematosusPredni 8-201 DANNI. 59 33-57 Care sone adverse [address], [place] reactionSystemic [facility], [place], lupus [place], [place] erythematosusAdvers [address]. [place], e effect, cortical tel:[phone], [place] steroid 132925 tel:[phone] 0001 - [facility] Systemic lupus Feb-2 VIRGEN [facility] Inc, Primary erythematosusAbFnd, 1-201 ASHOK. 54 33-57 Care immunologil NOS [address] , [facility], [place], [place] [address]. [place], tel:[phone], [place] 605963 tel:[phone] 0001 - [facility] Pain in joint, Dec-1 GLOSENGER [facility] Inc, Primary unspecified 2-201 DANNI. 59 33-57 Care siteGERDPain in [address] , [facility] joint, unspecified [facility], [place], siteGERD [place], [place] [address]. [place], tel:[phone], [place] 669820 tel:[phone] 0001 - [facility] Joint painPain in Dec-0 GLOSENGER [facility] Inc, Primary joint, unspecified 2-201 DANNI. 59 33-57 Care site 1 [facility], [facility], [place], [place] [address]. [place], tel:[phone], [place] 257637 tel:[phone] 0001 - [facility] FatigueFatigue / Nov- GLOSENGER [facility] Inc, Primary Malaise 8-201 DANNI. 59 33-57 Care [address] , [facility], [place], [place] [address]. [place], tel:[phone], [place] 708244 tel:[phone] 0001 - [facility] Chronic joint Omari-2 GLOSENGER Referring [facility] Inc, Primary painPain in joint, 6-201 DANNI. 59 Provider: 33-57 Care unspecified site [address], [facility], [facility], [place], [address] [facility] [address]. [facility], [place], [place], tel:+[phone] [facility] [address], [place] 117586 [place], [address]. tel:+ tel:[phone] 0001 - [facility] Pain, upper back Apr-2 GLOSENGER Referring [facility] Inc, Primary 5-201 DANNI. 59 Provider: 33-[address], DANNI Matthews [facility], GLOSENGER, [place], [address] [place] [address]. [facility], [place], [place], tel:+[phone] [place], [address], [place] 068850 [place], [address]. tel: tel:[phone] 0001 - [facility] Pain, abdominal, Nov- VIRGEN [facility] Inc, Primary generalizedNeop, 6-201 ASHOK. 54 33-57 Care UB, liver/biliary [address] , [place] passagespertBanner, [place], [place], [place], [place] [address]. [place], tel:[phone], [place] 463610 tel:+ [phone] 0001 - [facility] Pain, abdominal, May-1 VIRGEN [facility] Inc, Primary generalizedNeop, 4-201 ASHOK. 54 33-57 Care UB, liver/biliary [address] , Byronjade Sagastume [facility], [place], [place], [place] [address]. [place], tel:[phone], [place] 491875 tel:[phone] 0001 - [facility] Neop, malig, liver, May-0 LEONCIO [facility] Inc, Primary primary 4-201 ZAID. 54 -57 Care [address] , [place], [place], [place], [facility]. Pravin tel:+[phone] [place], [place], 540951 [address], [place] tel:[phone] 0001 - [facility] Pain, abdominal, Apr-1 VIRGEN [facility] Inc, Primary generalized 6-201 ASHOK. 54 33-57 Care 0 [address] , [facility], [place], [place] [address]. [place], tel:[phone], [place] 425696 tel:[phone] 0001 - [facility] Pain, abdominal, Apr-1 VIRGEN Referring [facility] Inc, Primary generalizedFatigue 3-201 ASHOK. 54 Provider: 33- Care / Malaise 0 [facility], ASHOK Matthews [facility], [facility], [place], [place], 54 [facility] [place] [address]. [facility], [place], [place], tel:[phone] [place], [address], [place] 104367 [place], [address]. tel:+60 tel:[phone] 0001 - S late effects of SKIFF S Inc, Primary cerebrovascular 7-200 CONNOR. [facility] 33- Care ds., fluency 9 PC 119 [facility] [place] disorder , [place], [place], [place] [address]. [place], tel:[phone], 198628 tel:[phone] 0001 - S Disorder, SKIFF Referring [facility] Inc, Primary muscle/ligament NEC 9-200 [facility]. [facility] Provider: Care 9 PC 119 [facility] CONNOR [place], [place], PC 119 [place] [address]. [facility], [place], [place], tel:+[phone] [place] [address], [address]17654 [place], tel:+60 [place], [address]. 45053324 tel:[phone] 0001 - S Myalgia/myositis Nov- VIRGEN [facility] Inc, Primary NOSMalaise and 7-200 ASHOK. 54 -57 Care fatigue NEC [address] , Byron Sagastume [facility], [place], [place] [address]. [place], tel:[phone], [place] 124985 tel:[phone] 0001 - S Pain, chest NOS Dec-2 LEONCIO Referring [facility] Inc, Primary 3-200 ZAID. 54 Provider: 33-57 Care 8 [facility], ZAID [place], [place], [place], [place], [address]. 54 [facility] tel:[phone] , [place], [place], 712103 [place], [address], [place], [address]. tel:+60 tel:[phone] 0001 - [facility] Lump or mass in Sep-0 LEONCIO Referring S Inc, Primary breastDisorder, 3-200 ZAID. 54 Provider: 33-57 Care tobacco use [address] [facility] ZAID Matthews [facility], [place], [facility], [place], [address]. [address] [place] tel:[phone] , [place], [place], 428075 [place], [address], [place], [address]. tel:+60 tel:[phone] 0001 - S Candidiasis, mouth Marcos-3 VIRGEN S Inc, Primary (Thrush) 0-200 ASHOK. 54 33-57 Care 8 [facility], Byron [facility], [place], [place], [place] [address]. [place], tel:[phone], [place] 543452 tel:[phone] 0001 - S Disorder, Mar-0 [facility] Inc, Primary depressive 6-200 [facility]. [facility] 33-57 Care NECMalaise and 8 [address] 119 [facility] fatigue NEC [place], [place], [place] [address]. [place], tel:[phone], [place] 390022 tel:[phone] 0001 - S Hypoglycemia NOS Dong-2 [facility] Inc, Primary 2-200 [facility]. [facility] 33-57 Care 8 [address] 119 [place], [place], [place] [address]. [place], tel:[phone], [place] 818652 tel:[phone] 0001 - S Pain in thoracic Jun- [facility] Referring S Inc, Primary spineInfection, up 0-200 [facility]. 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 [facility], [place], [place], tel:[phone] [place] [address], [place] 297502 [place], tel:+[phone] [facility] [address]. [id number] tel:[phone] 0001 - S Neuritis, [facility] Inc, Primary lumbosacral NOS 4-200 [facility]. [facility] 33-57 Care 6 PC 119 [facility], [facility], [place], [place], [place] [address]. [place], tel:[phone], [place] 590187 tel:[phone] 0001 - [facility] Examination, Nov-0 VIRGEN [facility] Inc, Primary routine 7-200 ASHOK. 33-57 Care medicalAsthma NOS 5 [facility], [facility] w/o status [facility], [place], [place], [place], [place] [address]. [place], tel:[phone], 359707 tel:[phone] Family History Family Member Diagnosis Age At Onset Unknown Immunizations Vaccine Date Status Comments Influenza, injectable, administered Source: New Immunization quadrivalent, preservative Record free, split virus Td (adult) preservative free administered Source: New Immunization Record Payers Payer name Insurance type Covered democrat ID Authorization(s) [facility] [id number] [facility] [id number] [facility] [id number] Lifetime Benefit [id number] Social History Type Description Quantity Date Captured [...] Referred To: ordered ASHOK MEDRANO MD [address] [facility] [address] [place], [address] [id number] Ordered: Referrals: Surgery. ASHOK MEDRANO MD. Location: [facility] Surgery. Evaluate and treat Appointment date/timeframe: 11/09/2017 Referral Ordered: ordered Surgery (related to Epigastric abdominal pain) Referral Ordered: ordered Referrals: Surgery. Location: [facility]. Evaluate and treat Appointment date/timeframe: [...] 05/29/2014 Referral Referred To: ordered JONNY CASE [address] [place] [address], [address] [id number] Ordered: JONNY CASE. Cardiology. Appointment date/timeframe: 12/21/2013 Referral Ordered: ordered Echocardiography With Color Flow Appointment date/timeframe: 12/06/2013 Referral Ordered: ordered Holter monitor/24 hrs, complete Appointment date/timeframe: 12/06/2013 Referral Ordered: ordered . Cardiology. Consult and treat. Referral Ordered: ordered Nuclear Scan Myocardial Perfusion Rest and Stress (must specify Treadmilll /patsy Referral Referred To: ordered ashlyn Garcia[address] [place], [id number] [phone] Ordered: ashlyn. Rheumatology. Consult and treat. Referral Ordered: ordered U/S Abdomen limited (for spec organ, must value organ in site) biliary Appointment date/timeframe: 02/02/2013 Referral Referred To: ordered KYLE OQUENDO [place] [id number] [address] [place], [id number] [phone] Ordered: KYLE OQUENDO. Rheumatology. Consult and treat. [...] Medications Administered Medication Instructions Dosage Effective Dates (start - stop) Status Comments Drug Treatment Unknown Instructions Date Instruction Additional Information Stop Sertraline. Start Viibryd 1 tab Related to Current moderate episode once per day. Risks and benefits of of major depressive disorder new medication discussed.has been on without prior episode Cymbalta in the past, reaction noted. Wellbutrin in the past did not work, Sertraline in the past and did not work at higher dose. Victor-Guard Related to Encounter for screening for malignant [...] History of myocardial in regards to past SD, needs to have infarction more stents placed [...]
[2019-08-23 04:04] LABS: TSH (Thyroid Stimulating Horm) 1.1 mcIU/mL (0.34-5.60)
[2019-08-23 06:41] VITALS: BP 149/76
== END 2019-08-23 03:55 | disposition home or self-care (01) ==
LOC: MERGE 01:27 → ED 01:27
DX: R42 Dizziness and giddiness (principal); E78.00 Pure hypercholesterolemia, unspecified; I10 Essential (primary) hypertension; I25.2 Old myocardial infarction; F17.210 Nicotine dependence, cigarettes, uncomplicated; L94.9 Localized connective tissue disorder, unspecified; Z95.5 Presence of coronary angioplasty implant and graft; Z90.49 Acquired absence of other specified parts of digestive tract; Z79.82 Long term (current) use of aspirin; Z79.02 Long term (current) use of antithrombotics/antiplatelets; Z79.899 Other long term (current) drug therapy; Z88.0 Allergy status to penicillin; Z88.8 Allergy status to other drugs, medicaments and biological substances; Z91.041 Radiographic dye allergy status
CPT/HCPCS: 36415; 71045; 80048; 80076; 83690; 83735; 84443; 84484; 85025; 93005; 96361; 96374; 96375; 99284; A9270-GY; J2405